=== PATIENT | female | born 1940 | race Caucasian/White ===

== ENCOUNTER 2023-03-31 09:46 | Outpatient (CLI) | payer MEDICARE, BC, SELFPAY ==
--- OUTSIDE RECORDS SUMMARY | 2023-03-31 09:49 | XMS_ITS | Continuity of Care Document ---
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 Role Phone Harley Jordan MD Unavailable Unavailable Allergies, Adverse Reactions, Alerts Substance Reaction Status Criticality No Known Allergies Active No Inform ation Medications Medication Instructions Dosage Effective Dates (start - stop) Status Comments AMLODIPINE BESYLATE (unknown strength) Not Available - Active ANASTROZOLE (unknown strength) Not Available - Active COSOPT (unknown strength) Not Available - Active DURLAZA (unknown strength) Not Available - Active LATANOPROST (unknown strength) Not Available - Active OYSTER SHELL-D (unknown strength) Not Available - Active PRAVASTATIN SODIUM (unknown strength) Not Available - Active ROGAINE (unknown strength) Not Available - Active VITAMIN D3 (unknown strength) Not Available - Active ZETIA (unknown strength) Not Available - Active Procedures Procedure Date Office/Outpatient Visit,[facility] [place] Advance Directives Directive Yes / No Effective Date File Name No Information Encounters Encounter Description Practice Location Reason(s) For Visit Diagnoses Date Provider Providers Copied on Encounter [facility], [address], [place], [id number], [place] tel:[phone] [facility] [place] No Information Nikki Souza. [facility], [address], [facility] [address], [facility] [place], [id number] , [place]. tel:[phone] Office/Outpat ient Visit,[facility], [address], [place], [id number], [place] tel:[phone] [facility], lumbar regionPain in lower leg Nikki Souza. [facility], [address], [address], [place], [place], [id number] , [place]. tel:[phone] Referring Provider: Abhi Weldon, [facility] [address] [place], [address]. tel:[phone] Family History Family Member Type Diagnosis Age At Onset Problem (finding) Payers Payer name Insurance type Covered green party ID Authoriza tion(s) Medicare MB [id number] [facility] [id number] [facility] [id number] Social History Type Description Quantity Date Captured Comments Alcohol Use Details Unknown Caffeine Use Details Unknown Tobacco Use Status No Information Smoking Status No Information Sex Female Chief Complaint And Reason For Visit No Information Reason For Referral Reason For Referral No Information History Of Present Illness Encounter Date Complaint History Of Prese nt Illness No Information Functional Status Date Functional Assessmen t No Information Instructions Date Instruction Additional Infor mation Weight Management Education Rela santiago to Overweight Weight management: I nstructed to return to General Practitioner timeframe: 1 Month. Related to Overweight Assessments Type Assessment Date No Information Patient Care Teams Name Effective Dates (start - stop) Status Members No Information
== END 2023-03-31 09:47 | disposition home or self-care (01) ==
LOC: NFLDREF 09:47
PROVIDERS: PCP Internal Medicine; Visit Provider Internal Medicine
DX: R53.83 Other fatigue (principal)
CPT/HCPCS: 80053; 87086

== ENCOUNTER 2023-04-02 13:39 | Emergency (ER) | payer MEDICARE, BC, SELFPAY ==
[2023-04-02] VITALS (18 sets, daily range): BP systolic 115–146; BP diastolic 47–73; PULSE 67–95; RESP 18; TEMP 36.3; O2SAT 95–98; BMI 27.5
--- NOTE | 2023-04-02 14:24 | ED.GENADULT ---
HPI - General Adult General Chief complaint: Weakness Stated complaint: Shaking, fatigue Time Seen by Provider: 04/02/23 14:23 History of Present Illness HPI narrative: pt started on uti medication, not feeling well since last wednesday. 03/[address] henley nurse and asked if she should be feeling better, pt feeling worse and does not feel like she has uti. told to go to ED. 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 pt more tired. 83-year-old woman presenting to the emergency department with primary complaint of fatigue. 4 COVID tests home were negative. It has been about a week where Kuhshbu has just not been feeling well and is fatigued. Initiated on Bactrim with 2-5 white cells 1+ leukocyte esterase noted in urine. She did not have any symptoms of dysuria but always struggles with urinary frequency. Contemplating treatment specifically for nocturia this time. No fever but the onset of these symptoms seem to come with a chill. No measured fever. No vomiting or diarrhea. No pain. Described vibration through her body when standing on triage. No melena. Blood pressures near goal. Is typically very active. Related Data Home Medications Medication Instructions Recorded Confirmed aspirin 81 mg tablet,delayed 81 mg PO QDAY 06/24/22 03/31/23 release dorzolamide 2 %-timolol 0.5 % (PF) 1 drp ophthalmic (eye) BID 06/24/22 03/31/23 eye drops ezetimibe 10 mg tablet 10 mg PO DAILY 06/24/22 03/31/23 latanoprost 0.005 % eye drops 1 drp ophthalmic (eye) QDAY 06/24/22 03/31/23 oxybutynin chloride 5 mg 5 mg PO DAILY 06/24/22 03/31/23 tablet,extended release 24 hr rosuvastatin 40 mg tablet 40 mg PO DAILY 06/24/22 03/31/23 Previous Rx's Medication Instructions Recorded amlodipine 5 mg tablet 5 mg PO QDAY Hypertension #90 tabs 06/24/22 sulfamethoxazole 800 1 tab PO BID UTI #10 tabs 03/31/23 mg-trimethoprim 160 mg tablet (Bactrim DS) Allergies Allergy/AdvReac Type Severity Reaction Status Date / Time No Known Allergies Allergy Unknown Unverified 03/31/23 09:30 Review of Systems Status of ROS: Reports: 6 or more systems reviewed and unremarkable except as noted in History and below PFSH PFSH Medical History UTI (urinary tract infection) ?N39.0 - Urinary tract infection, site not specified (ICD-10) Fatigue ?R53.83 - Other fatigue (ICD-10) Synovial cyst ?M71.30 - Other bursal cyst, unspecified site (ICD-10) History of malignant neoplasm of breast (2011) ?Z85.3 - Personal history of malignant neoplasm of breast (ICD-10) History of colonic polyps (06/02/18) ?Z86.010 - Personal history of colonic polyps (ICD-10) 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) ?Z95.0 - Presence of cardiac pacemaker (ICD-10) Surgical History History of lymph node dissection of axilla (05/28/12) ?Z98.890 - Other specified postprocedural states (ICD-10) History of lumpectomy of right breast (05/28/12) ?Z98.890 - Other specified postprocedural states (ICD-10) History of left inguinal hernia repair (07/11/18) ?Z98.890 - Other specified postprocedural states (ICD-10) ?Z87.19 - Personal history of other diseases of the digestive system (ICD-10) History of cholecystectomy (01/2012) ?Z90.49 - Acquired absence of other specified parts of digestive tract (ICD-10) History of appendectomy (1979) ?Z90.49 - Acquired absence of other specified parts of digestive tract (ICD-10) History of angioplasty of peripheral vessel (2015) ?Z98.62 - Peripheral vascular angioplasty status (ICD-10) History of abdominal hysterectomy (1979) ?Z90.710 - Acquired absence of both cervix and uterus (ICD-10) Family History Other Breast cancer Diabetes Heart disease Social History Smoking Status: Never smoker Do you use any of these nicotine containing products: None How often do you have a drink containing alcohol: 4 or more times a week How many standard drinks containing alcohol do you have on a typical day: 1 or 2 How often do you have six or more drinks on one occasion: Never AUDIT-C Alcohol total score: 4 Non-prescribed substance use: denies use Little interest or pleasure in doing things: not at all Feeling down, depressed, or hopeless: not at all service: No Exam Narrative: Exam Narrative: Very pleasant. Very conversant. Breathing easily. Cranial nerves 2-12 intact. Moving all extremities fluidly and with good strength. Well-perfused. No edema. Lungs are clear. Heart in a regular rate and rhythm. Abdomen is soft and nontender. Skin warm and dry without evident rash. Const: Vital Signs, click to edit/add: Vital Signs - 24 hr 04/02/23 13:45 04/02/23 14:20 04/02/23 14:21 Temperature 97.4 F L Pulse Rate 95 89 Pulse Rate [Pulse Oximeter] 83 Respiratory Rate 18 Blood Pressure 138/49 L 134/49 L Blood Pressure [Ri ght Upper Arm] 133/73 Pulse Oximetry 96 95 95 Oxygen Delivery [facility] Room Air 04/02/23 14:22 04/02/23 14:30 04/02/23 14:31 Temperature Pulse Rate 84 71 73 Pulse Rate [Pulse Oximeter] Respiratory Rate Blood Pressure 115/47 L Blood Pressure [Ri ght Upper Arm] Pulse Oximetry 96 96 96 Oxygen Delivery [facility] 04/02/23 14:45 04/02/23 15:00 04/02/23 15:02 Temperature Pulse Rate 67 70 71 Pulse Rate [Pulse Oximeter] Respiratory Rate Blood Pressure 124/52 L Blood Pressure [Ri ght Upper Arm] Pulse Oximetry 96 98 96 Oxygen Delivery [facility] 04/02/23 15:15 04/02/23 15:30 04/02/23 15:31 Temperature Pulse Rate 73 70 74 Pulse Rate [Pulse Oximeter] Respiratory Rate Blood Pressure 125/54 L Blood Pressure [Ri ght Upper Arm] Pulse Oximetry 97 97 95 Oxygen Delivery Nc thod 04/02/23 15:45 04/02/23 16:00 04/02/23 16:04 Temperature Pulse Rate 85 87 94 Pulse Rate [Pulse Oximeter] Respiratory Rate Blood Pressure 131/61 Blood Pressure [Ri ght Upper Arm] Pulse Oximetry 98 98 98 Oxygen Delivery Me thod 04/02/23 16:15 04/02/23 16:30 04/02/23 16:32 Temperature Pulse Rate 77 86 75 Pulse Rate [Pulse Oximeter] Respiratory Rate Blood Pressure 146/60 H Blood Pressure [Ri ght Upper Arm] Pulse Oximetry 98 97 97 Oxygen Delivery Me thod Documenting provider has reviewed patient's vital signs: yes Course Vital Signs Vital signs: Initial Vital Signs Temperature 97.4 F L 04/02/23 13:45 Temperature Source Temporal Artery Scan 04/02/23 13:45 Pulse Rate 83 04/02/23 13:45 Respiratory Rate 18 04/02/23 13:45 Blood Pressure 133/73 04/02/23 13:45 Blood Pressure Mean 93 04/02/23 13:45 Blood Pressure Position Supine 04/02/23 13:45 Pulse Oximetry 96 04/02/23 13:45 Oxygen Delivery Method Room Air 04/02/23 13:45 Vital Signs Temperature 97.4 F L 04/02/23 13:45 Pulse Rate 83 04/02/23 13:45 Respiratory Rate 18 04/02/23 13:45 Blood Pressure 133/73 04/02/23 13:45 Pulse Oximetry 96 04/02/23 13:45 Oxygen Delivery Method Room Air 04/02/23 13:45 Temperature 97.4 F L 04/02/23 13:45 Pulse Rate 75 04/02/23 16:32 Respiratory Rate 18 04/02/23 13:45 Blood Pressure 146/60 H 04/02/23 16:32 Pulse Oximetry 97 04/02/23 16:32 Oxygen Delivery Method Room Air 04/02/23 13:45 Medical Decision Making [facility] Narrative Medical decision making narrative: I think we can recheck labs including urinalysis. Do laboratory testing here for COVID. Differential does include indolent infection, viral process NOS, depression, poor sleep/insomnia, altered vitamin levels, endocrine anomaly. Could be reaction to medication; does take a statin. Monitor on cardiac nurse for any arrhythmia. No events during time in the emergency department. Offered reassurance at this point. See patient discharge plan. Medical Records Medical records reviewed: Yes I reviewed the patient's medical records Lab Data Lab results reviewed: Yes I reviewed the patient's lab results Labs: Lab Results 04/02/23 04/02/23 04/02/23 Range/Units 14:54 15:35 15:50 WBC 6.32 (4.50-11.00) K/uL RBC 3.95 L (4.00-5.20) m/uL Hgb 13.2 (12.0-16.0) gm/dL Hct 39.8 (33.0-51.0) % MCV 101 H (80-100) fL MCH 33 (26-34) pg MCHC 33 (32-36) gm/dL RDW Coeff of Augusto 12.1 (11.5-15.5) % Plt Count 204 (140-440) K/uL Neut % (Auto) 67.4 (42.0-72.0) % Lymph % (Auto) 19.9 L (20-44) % [place] % (Auto) 11.4 H (0.0-11.0) % Eos % (Auto) 0.2 (0.0-7.0) % Baso % (Auto) 0.3 (0.0-3.0) % Neut # (Auto) 4.26 (1.7-7.0) K/uL Lymph # (Auto) 1.30 (0.90-2.90) K/uL [place] # (Auto) 0.70 (0.00-0.90) K/UL Eos # (Auto) 0.01 (0.00-0.50) K/uL Baso # (Auto) 0.02 (0.00-0.30) K/uL Abs Immat Gran (auto) 0.05 (0.00-0.30) K/uL Imm/Tot Granulo (auto) 0.8 % Sodium 139 (135-149) mmol/L Potassium 4.0 (3.6-5.1) mmol/L Chloride 108 (96-114) mmol/L Carbon Dioxide 21 (20-32) mmol/L Anion Gap 10 (7-15) mEq/L BUN 12 (7-30) mg/dL Creatinine 0.9 (0.5-1.5) mg/dL Estimated Creat Clear 37.68 Estimated GFR 63 ml/min Glucose 107 (60-115) mg/dL Calcium 9.6 (8.4-10.6) mg/dL AST 67 H (12-35) U/L ALT 81 H (4-35) U/L Troponin I < 0.01 L (0.01-0.04) ng/mL C-Reactive Protein 0.7 (0.5-1.0) mg/dL Urine Color Yellow (Yellow) Urine Appearance Clear (Clear) Urine pH 6.0 (5.0-8.5) Ur Specific [place] 1.010 (1.000-1.030) Urine Protein Negative (Negative) Urine Glucose (UA) Negative (Negative) Urine Ketones Negative (Negative) Urine Blood Trace-intact A (Negative) Urine Nitrite Negative (Negative) Urine Bilirubin Negative (Negative) Urine Urobilinogen 0.2 (0.2-1.0) Ur Leukocyte Esterase Negative (Negative) Urine RBC 0-2 (0-2) Urine WBC 0-2 (0-5) Ur Squamous Epith Cells None (None-Few) Urine Bacteria None (None) SARS-CoV-2 (PCR) Negative SARS-CoV-2 (Negative) Influenza Type A (PCR) Negative PCR FLU A (Negative) Influenza Type B (PCR) Negative PCR FLU B (Negative) Lab Acknowledgement POC Troponin I 0.00 L (0.01-0.04) ng/ml 04/02/23 Range/Units 16:54 WBC (4.50-11.00) K/uL RBC (4.00-5.20) m/uL Hgb (12.0-16.0) gm/dL Hct (33.0-51.0) % MCV (80-100) fL MCH (26-34) pg MCHC (32-36) gm/dL RDW Coeff of Augusto (11.5-15.5) % Plt Count (140-440) K/uL Neut % (Auto) (42.0-72.0) % Lymph % (Auto) (20-44) % [place] % (Auto) (0.0-11.0) % Eos % (Auto) (0.0-7.0) % Baso % (Auto) (0.0-3.0) % Neut # (Auto) (1.7-7.0) K/uL Lymph # (Auto) (0.90-2.90) K/uL [place] # (Auto) (0.00-0.90) K/UL Eos # (Auto) (0.00-0.50) K/uL Baso # (Auto) (0.00-0.30) K/uL Abs Immat Gran (auto) (0.00-0.30) K/uL Imm/Tot Granulo (auto) % Sodium (135-149) mmol/L Potassium (3.6-5.1) mmol/L Chloride (96-114) mmol/L Carbon Dioxide (20-32) mmol/L Anion Gap (7-15) mEq/L BUN (7-30) mg/dL Creatinine (0.5-1.5) mg/dL Estimated Creat Clear Estimated GFR ml/min Glucose (60-115) mg/dL Calcium (8.4-10.6) mg/dL AST (12-35) U/L ALT (4-35) U/L Troponin I (0.01-0.04) ng/mL C-Reactive Protein (0.5-1.0) mg/dL Urine Color (Yellow) Urine Appearance (Clear) Urine pH (5.0-8.5) Ur Specific [place] (1.000-1.030) Urine Protein (Negative) Urine Glucose (UA) (Negative) Urine Ketones (Negative) Urine Blood (Negative) Urine Nitrite (Negative) Urine Bilirubin (Negative) Urine Urobilinogen (0.2-1.0) Ur Leukocyte Esterase (Negative) Urine RBC (0-2) Urine WBC (0-5) Ur Squamous Epith Cells (None-Few) Urine Bacteria (None) SARS-CoV-2 (PCR) (Negative) Influenza Type A (PCR) (Negative) Influenza Type B (PCR) (Negative) Lab Acknowledgement Test Added POC Troponin I (0.01-0.04) ng/ml ECG Data Attestation: I personally reviewed and interpreted this ECG as follows: (Sinus rhythm rate of 71 no acute ischemic changes. Looks like a bit of a sinus arrhythmia.) Discharge Plan Discharge Clinical Impression: Fatigue Patient Disposition: Home, Self-Care Condition: Stable Additional Instructions: Stay well-hydrated. I can appreciate that your transaminases are little elevated. I will do an add on repeat of these and call you if they are what I would consider actionable. (I suppose I should mention that a glass of wine would bump your transaminases potentially to this degree even the next day :) Otherwise if fatigue continues for another week, follow up to be seen in repeat lab testing. Consider other testing in the differential of fatigue. It may simply be that you have a viral process that has occurred here and left with with some lower energy. I do not see reason now to be taking Bactrim; can discontinue. Prescriptions: No Action rosuvastatin 40 mg tablet 40 mg PO DAILY oxybutynin chloride 5 mg tablet extended release 24hr 5 mg PO DAILY latanoprost 0.005 % drops 1 drp ophthalmic (eye) QDAY dorzolamide-timolol (PF) 2-0.5 % drops 1 drp ophthalmic (eye) BID aspirin 81 mg tablet,delayed release (DR/EC) 81 mg PO QDAY ezetimibe 10 mg tablet 10 mg PO DAILY amlodipine 5 mg tablet 5 mg PO QDAY Qty: 90 3RF sulfamethoxazole-trimethoprim [Bactrim DS] 800-160 mg tablet 1 tab PO BID Qty: 10 0RF Follow Up/Referrals: Abhi Weldon MD [Primary Care Provider] - Stand Alone Forms: [employer] Info Instructions
--- OUTSIDE RECORDS SUMMARY | 2023-04-02 15:08 | XMS_ITS | Continuity of Care Document ---
Author Name Unknown Organization [facility] Address [address] [place] [address] Phone Care Team Providers Care Log Manager Name Role Phone Harley Jordan MD Unavailable Unavailable Allergies, Adverse Reactions, Alerts Substance Reaction Status Criticality No Known Allergies Active No Inform ation Medications Medication Instructions Dosage Effective Dates (start - stop) Status Comments ZETIA (unknown strength) Not Available - Active VITAMIN D3 (unknown strength) Not Available - Active ROGAINE (unknown strength) Not Available - Active PRAVASTATIN SODIUM (unknown strength) Not Available - Active OYSTER SHELL-D (unknown strength) Not Available - Active LATANOPROST (unknown strength) Not Available - Active DURLAZA (unknown strength) Not Available - Active COSOPT (unknown strength) Not Available - Active ANASTROZOLE (unknown strength) Not Available - Active AMLODIPINE BESYLATE (unknown strength) Not Available - Active Procedures Procedure Date Office/Outpatient Visit,[facility] 2015 Advance Directives Directive Yes / No Effective Date File Name No Information Encounters Encounter Description Practice Location Reason(s) For Visit Diagnoses Date Provider Providers Copied on Encounter [facility], [address], [place], [id number], [place] tel:[phone] [facility] - [place] No Information Nikki Souza. [facility], [address], [facility] [address], [facility] [place], [id number] , [place]. tel:[phone] Office/Outpat ient Visit,[facility], [address], [place], [id number], [place] tel:[phone] [facility], lumbar regionPain in lower leg Nikki Souza. [facility], [address], [address], [place], [place], [id number] , [place]. tel:[phone] Referring Provider: Abhi Weldon, [facility] [address] [place], [address]. tel:[phone] Family History Family Member Type Diagnosis Age At Onset Problem (finding) Payers Payer name Insurance type Covered constitution party ID Authoriza tion(s) Medicare MB [id number] [facility] [id number] [facility] [id number] Social History Type Description Quantity Date Captured [...]
[2023-04-02 15:40] LABS: Basophils Absolute Auto 0.02 K/uL (0.00-0.30); Basophils Percent Auto 0.3 % (0.0-3.0); Eosinophils Absolute Auto 0.01 K/uL (0.00-0.50); Eosinophils Percent Auto 0.2 % (0.0-7.0); Hematocrit 39.8 % (33.0-51.0); Hemoglobin* 13.2 gm/dL (12.0-16.0); Immature Granulocytes Abs Auto 0.05 K/uL (0.00-0.30); Immature Granulocytes Pct Auto 0.8 %; Lymphocytes Percent Auto 19.9 % (20-44); Mean Corpuscular HGB Conc 33 gm/dL (32-36); Mean Corpuscular Hemoglobin 33 pg (26-34); Mean Corpuscular Volume 101 fL (80-100); Monocytes Percent Auto 11.4 % (0.0-11.0); Neutrophils Absolute Auto 4.26 K/uL (1.7-7.0); Neutrophils Percent Auto 67.4 % (42.0-72.0); Platelet Count* 204 K/uL (140-440); RDW Coefficient of Variation % 12.1 % (11.5-15.5); Red Blood Count 3.95 m/uL (4.00-5.20); White Blood Count* 6.32 K/uL (4.50-11.00)
[2023-04-02 15:49] LABS: Slide Review Reflex No
[2023-04-02 15:56] LABS: Chloride* 108 mmol/L (96-114); Sodium* 139 mmol/L (135-149)
[2023-04-02 15:59] LABS: Creatinine* 0.9 mg/dL (0.5-1.5); Est. Creatinine Clearance* 37.68; Estimated Glomerular Filt Rate 63 ml/min
[2023-04-02 16:00] LABS: Anion Gap 10 mEq/L (7-15); Blood Urea Nitrogen* 12 mg/dL (7-30); Calcium* 9.6 mg/dL (8.4-10.6); Carbon Dioxide* 21 mmol/L (20-32); Glucose* 107 mg/dL (60-115)
[2023-04-02 16:02] LABS: C Reactive Protein* 0.7 mg/dL (0.5-1.0)
[2023-04-02 16:11] LABS: Appearance Urine Clear (Clear); Bilirubin Urine Negative (Negative); Blood Urine Trace-intact (Negative); Color Urine Yellow (Yellow); Glucose Urine Negative (Negative); Ketones Urine Negative (Negative); Leukocyte Esterase Urine Negative (Negative); Nitrite Urine Negative (Negative); Protein Urine Negative (Negative); Urobilinogen Urine 0.2 (0.2-1.0)
[2023-04-02 16:18] LABS: Troponin I* < 0.01 ng/mL (0.01-0.04)
[2023-04-02 16:19] LABS: PCR FLU A Negative PCR FLU A (Negative); PCR FLU B Negative PCR FLU B (Negative); SARS PCR* Negative SARS-CoV-2 (Negative)
[2023-04-02 16:26] LABS: RBC Urine 0-2 (0-2); WBC Urine 0-2 (0-5)
[2023-04-02 17:07] LABS: Alanine Aminotransferase* 81 U/L (4-35); Aspartate Amino Transferase* 67 U/L (12-35)
== END 2023-04-02 16:50 | disposition home or self-care (01) ==
PROVIDERS: Emergency Provider Family Medicine; PCP Internal Medicine
DX: R53.83 Other fatigue (principal)
CPT/HCPCS: 36415; 80048; 81001; 84450; 84460; 84484; 85025; 86140; 87631; 93005; 99284

== ENCOUNTER 2023-06-30 08:47 | Outpatient (CLI) | payer MEDICARE, BC, SELFPAY ==
--- OUTSIDE RECORDS SUMMARY | 2023-06-30 08:56 | XMS_ITS | Continuity of Care Document ---
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 Name Role Phone Harley Jordan MD Unavailable Unavailable Allergies, Adverse Reactions, Alerts Substance Reaction Status Criticality No Known Allergies Active No Inform ation Medications Medication Instructions Dosage Effective Dates (start - stop) Status Comments ANASTROZOLE (unknown strength) Not Available - Active [...] ZETIA (unknown strength) Not Available - Active AMLODIPINE BESYLATE (unknown strength) Not Available - Active Procedures Procedure Date Office/Outpatient Visit,[facility] 2015 Advance Directives Directive Yes / No Effective Date File Name No Information Encounters Encounter Description Practice Location Reason(s) For Visit Diagnoses Date Provider Providers Copied on Encounter [facility], [address], [place], [id number], [place] tel:[phone] [facility] - [place] No Information Nikki Souza. [facility], [address], [facility] [address], [facility] [place], [id number] , [place]. tel:[phone] Office/Outpat ient Visit,[facility], [address], [place], [id number], [place] tel:[phone] [facility]isth [facility]is, lumbar regionPain in lower leg Nikki Souza. [facility], [address], [address], [place], [place], [id number] , [place]. tel:[phone] Referring Provider: Abhi Weldon, [facility] [address] [place], [address]. tel:[phone] Family History Family Member Type Diagnosis Age At Onset Problem (finding) Payers Payer name Insurance type Covered constitution party ID Authoriza tion(s) [place] [id number] [facility] [id number] [facility] [id number] Social History Type Description Quantity Date Captured [...]
--- NOTE | 2023-06-30 09:15 | CRLHL7_ITS ---
For Patients: As a result of the Century Cures Act, medical imaging exams and procedure reports are released immediately into your electronic medical record. You may view this report before your referring provider. If you have questions, please contact your health care provider. BILATERAL SCREENING MAMMOGRAM WITH COMPUTER-AIDED DETECTION TECHNIQUE: CC and MLO views were obtained. These mammographic images have been obtained using full-field digital technique. These mammographic images were interpreted with the benefit of computer-aided detection. COMPARISON FILM: 12/01/21, 10/26/18, 06/16/17. FINDINGS: The breasts are almost entirely fatty IMPRESSION: There is no radiographic evidence for malignancy. ASSESSMENT: BI-RADS Category 2: Benign RECOMMENDATION: Routine screening mammogram in 1 year. A lay language report of this examination will be provided to the patient. Po Mark M.D. Diagnostic/Nuclear Medicine Radiologist [email or web address] TAZ/Dictated by: Po Mark MD @ 06/30/2023 9:35:00 AM (Electronically Signed)
== END 2023-06-30 08:48 | disposition home or self-care (01) ==
LOC: MAMMO 08:49
PROVIDERS: PCP Internal Medicine; Visit Provider Internal Medicine
DX: Z12.31 Encounter for screening mammogram for malignant neoplasm of breast (principal)
CPT/HCPCS: 77067

== ENCOUNTER 2023-10-04 12:48 | Emergency (ER) | payer MEDICARE, BC, SELFPAY ==
[2023-10-04 13:17] VITALS: BP 153/80; PULSE 93; RESP 16; TEMP 36.4; O2SAT 97; BMI 27.0
--- NOTE | 2023-10-04 14:09 | CT_ITS ---
Final Report Patient: HONORIO HOSKINS Facility:?[facility] Patient ID:?[id number] Site Patient ID:?[id number]. Site :?[id number] Study:?CT Chest WITHOUT-10/04/2023 2:38:40 PM Ordering Physician:?DR. ROWAN Final Report: INDICATION: Right lower rib pain, history of breast cancer TECHNIQUE: CT of the chest was performed without intravenous contrast. Please note that all CT scans at this facility use dose modulation, iterative reconstruction, and/or weight-based dosing when appropriate to reduce radiation dose to as low as reasonably achievable. COMPARISON: None. FINDINGS: Medical devices: Left chest pacemaker with 2 associated leads. Thyroid: 0.5 centimeter hypoattenuating left thyroid nodule (2/10). Lymph nodes: Limited evaluation without IV contrast. No supraclavicular, axillary, mediastinal, or hilar lymphadenopathy. Status post right axillary lymph node dissection. Vasculature: Limited evaluation without IV contrast. Aorta and main pulmonary artery diameters are within normal range. Mild aortic calcification. Heart: Moderate coronary artery calcification. No pericardial effusion. Other mediastinal structures: No significant abnormality. Lung parenchyma: No significant abnormality. Airways: No significant abnormality. Pleura: No significant abnormality. Chest wall: Postsurgical changes are seen in the right breast. Upper abdomen: Status post cholecystectomy. Musculoskeletal: Osteopenia. Moderate multilevel degenerative changes of the visualized spine. IMPRESSION: 1. No suspicious bony lesions. 2. No visualized lymphadenopathy. 3. Postsurgical changes in the right breast and right axilla. Please note that all CT scans at this facility use dose modulation, iterative reconstruction, and/or weight-based dosing when appropriate to reduce radiation dose to as low as reasonably achievable. Dictated by Shoaib Trinh MD @ 10/04/2023 3:01:40 PM (Electronic Signature)
--- NOTE | 2023-10-04 16:05 | ED_ITS ---
HPI - General Adult General Date Seen: 10/04/23 Chief complaint: Abdominal Pain Stated complaint: Abdominal pain Time Seen by Provider: 10/04/23 14:01 Source: patient, RN notes reviewed and old records reviewed Mode of arrival: ambulatory Limitations: no limitations History of Present Illness HPI narrative: Patient is an 83-year-old woman who presents with focal pain in her right lower ribcage of 3 weeks duration. She says that it has been the same since it started, she does not remember any specific injury. She has no pleuritic pain and no shortness of breath, no fever cough. She describes it as abdominal pain but it is really a very localized area on the rib cage which is painful and tender to push on. She has not had any overlying redness or rash. She has a history of breast cancer on that side, she says she has had some problems with chest wall pain which she has been told her probably nerve pains, but this is in a different location. She says that there is nothing that makes the pain better or worse, she is sleeping without difficulty however, pain is mild. She is primarily concerned that it might be related to her previous breast cancer for which she had surgery in she thinks 2011 or . Related Data Home Medications Medication Instructions Recorded Confirmed dorzolamide 2 %-timolol 0.5 % (PF) 1 drp ophthalmic (eye) BID 06/24/22 10/04/23 eye drops ezetimibe 10 mg tablet 10 mg PO DAILY 06/24/22 10/04/23 latanoprost 0.005 % eye drops 1 drp ophthalmic (eye) QDAY 06/24/22 10/04/23 rosuvastatin 40 mg tablet 40 mg PO DAILY 06/24/22 10/04/23 Previous Rx's Medication Instructions Recorded amlodipine 5 mg tablet 5 mg PO QDAY Hypertension #90 tabs 07/23/23 Allergies Allergy/AdvReac Type Severity Reaction Status Date / Time No Known Allergies Allergy Unknown Verified 10/04/23 13:22 Review of Systems Status of ROS: Reports: 10 or more systems reviewed and unremarkable except as noted in History and below [facility] Medical History Nocturia ?R35.1 - Nocturia (ICD-10) IBS (irritable bowel syndrome) ?K58.9 - Irritable bowel syndrome without diarrhea (ICD-10) UTI (urinary tract infection) ?N39.0 - Urinary tract infection, site not specified (ICD-10) Fatigue ?R53.83 - Other fatigue (ICD-10) Synovial cyst ?M71.30 - Other bursal cyst, unspecified site (ICD-10) History of malignant neoplasm of breast (2011) ?Z85.3 - Personal history of malignant neoplasm of breast (ICD-10) History of colonic polyps (06/02/18) ?Z86.010 - Personal history of colonic polyps (ICD-10) 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) ?Z95.0 - Presence of cardiac pacemaker (ICD-10) Surgical History History of lymph node dissection of axilla (05/28/12) ?Z98.890 - Other specified postprocedural states (ICD-10) History of lumpectomy of right breast (05/28/12) ?Z98.890 - Other specified postprocedural states (ICD-10) History of left inguinal hernia repair (07/11/18) ?Z98.890 - Other specified postprocedural states (ICD-10) ?Z87.19 - Personal history of other diseases of the digestive system (ICD-10) History of cholecystectomy (01/2012) ?Z90.49 - Acquired absence of other specified parts of digestive tract (ICD- 10) History of appendectomy (1979) ?Z90.49 - Acquired absence of other specified parts of digestive tract (ICD- 10) History of angioplasty of peripheral vessel (2015) ?Z98.62 - Peripheral vascular angioplasty status (ICD-10) History of abdominal hysterectomy (1979) ?Z90.710 - Acquired absence of both cervix and uterus (ICD-10) Family History Other Breast cancer Diabetes Heart disease Social History What is your current living situation?: I presently have a place to live Problems where you live: no known problems In the past 12 months, utilities in danger of being shut off: no In past 12 months, lack of transportation kept you from medical appts, meetings, work, or getting things needed for daily living: no In the past 12 mos, have been you worried that your food would run out before you had money to buy more?: never true In the past 12 mos, the food you bought just didn't last and you didn't have money to buy more?: never true Smoking Status: Never smoker Do you use any of these nicotine containing products: None How often do you have a drink containing alcohol: 4 or more times a week How many standard drinks containing alcohol do you have on a typical day: 1 or 2 How often do you have six or more drinks on one occasion: Never AUDIT-C Alcohol total score: 4 Non-prescribed substance use: denies use How often does anyone, including family, friends and others, physically hurt you : never How often does anyone, including family, friends and others, insult or talk down to you: never How often does anyone, including family, friends and others, threaten you with harm: never How often does anyone, including family, friends and others, scream or curse at you: never Little interest or pleasure in doing things: not at all Feeling down, depressed, or hopeless: not at all service: No Exam 2 Narrative: Exam Narrative: Vital signs as noted above. In general, an alert, well-appearing patient. Breathing easily. Head: Normocephalic, atraumatic. Eyes: Pupils are equal reactive. Extraocular movements are full. Conjunctivae are normal. ENT: Mucous membranes are moist. Delete Neck: Supple without lymphadenopathy. Heart: Regular rate and rhythm. No murmur or rub. Lungs: Clear bilaterally. No increased work of breathing, crackles or wheezes. Focal area of tenderness over the lower anterior right rib cage. No overlying erythema, crepitus, rash. Abdomen: Soft and nontender. Her abdomen is entirely nontender, negative Potter's. Extremities: Well perfused. No edema. No calf tenderness. Pulses intact. Neurologic: Patient is alert and oriented to person and place. Speech is fluent. Face is symmetric. Moves all extremities equally. Affect: Normal. Skin: Warm and dry. Well perfused. Const: Vital Signs, click to edit/add: Vital Signs - 24 hr 10/04/23 13:17 Temperature 97.5 F L Pulse Rate [Pulse Oximeter] 93 Respiratory Rate 16 Blood Pressure [Ri ght Upper Arm] 153/80 H Pulse Oximetry 97 Oxygen Delivery Me thod Room Air Documenting provider has reviewed patient's vital signs: yes Course Course ED Course: Patient and I discussed options, she would really feel better if we did some imaging to evaluate that area, so I did order a CT of the chest without contrast. This is read by Radiology as negative for any suspicious bony lesions or other abnormalities. At this time, would recommend conservative care, scheduled Tylenol for few days, ice. If not improving with these measures, recommend primary care follow-up in the next week or 2. If she worsens, has new symptoms such as fever, shortness of breath, etcetera return to the emergency department at any time. Vital Signs Vital signs: Initial Vital Signs Temperature 97.5 F L 10/04/23 13:17 Temperature Source Temporal Artery Scan 10/04/23 13:17 Pulse Rate 93 10/04/23 13:17 Pulse Rhythm Regular 10/04/23 13:17 Pulse Strength 3+ Normal 10/04/23 13:17 Respiratory Rate 16 10/04/23 13:17 Blood Pressure 153/80 H 10/04/23 13:17 Blood Pressure Mean 104 10/04/23 13:17 Blood Pressure Position Sitting 10/04/23 13:17 Pulse Oximetry 97 10/04/23 13:17 Oxygen Delivery Method Room Air 10/04/23 13:17 Vital Signs Temperature 97.5 F L 10/04/23 13:17 Pulse Rate 93 10/04/23 13:17 Respiratory Rate 16 10/04/23 13:17 Blood Pressure 153/80 H 10/04/23 13:17 Pulse Oximetry 97 10/04/23 13:17 Oxygen Delivery Method Room Air 10/04/23 13:17 Temperature 97.5 F L 10/04/23 13:17 Pulse Rate 93 10/04/23 13:17 Respiratory Rate 16 10/04/23 13:17 Blood Pressure 153/80 H 10/04/23 13:17 Pulse Oximetry 97 10/04/23 13:17 Oxygen Delivery Method Room Air 10/04/23 13:17 Discharge Plan Discharge Clinical Impression: Chest wall pain Patient Disposition: Home, Self-Care Condition: Stable Instructions: Chest Wall Pain (ED) Additional Instructions: Tylenol 1000 mg 3 times daily for a few days, ice may be helpful as well. Your CT scan does not show any suspicious bony lesions or other abnormalities. If pain does not improve with conservative measures, recommend primary care follow- up next week. Return at any time for acute worsening, severe pain, fevers, difficulty breathing etcetera. Prescriptions: No Action rosuvastatin 40 mg tablet 40 mg PO DAILY latanoprost 0.005 % drops 1 drp ophthalmic (eye) QDAY dorzolamide-timolol (PF) 2-0.5 % drops 1 drp ophthalmic (eye) BID ezetimibe 10 mg tablet 10 mg PO DAILY amlodipine 5 mg tablet 5 mg PO QDAY Qty: 90 3RF Follow Up/Referrals: Abhi Weldon MD [Primary Care Provider] - Stand Alone Forms: [employer] Info Instructions
== END 2023-10-04 15:27 | disposition home or self-care (01) ==
PROVIDERS: Emergency Provider Emergency Medicine; PCP Internal Medicine
DX: R07.89 Other chest pain (principal)
CPT/HCPCS: 71250; 99284

== ENCOUNTER 2023-11-02 08:01 | Outpatient (CLI) | payer MEDICARE, BC, SELFPAY ==
--- NOTE | 2023-11-02 08:15 | US_ITS ---
Patient: HONORIO HOSKINS Facility:?[facility] Patient ID:?[id number] Site Patient ID:?[id number]. Site :?[id number] Study:?US-Breast Right RT BREAST LMT / DR. ARNETT TO READ-11/02/2023 8:40:36 AM Ordering Physician:?AKIL MCWILLIAMS M.D. Final Report: RIGHT BREAST ULTRASOUND CLINICAL HISTORY: RIGHT breast pain. COMPARISON: 06/07/2014, 06/30/2023. TECHNIQUE: Real-time ultrasound imaging of RIGHT breast with imaging documentation. FINDINGS: Targeted sonogram RIGHT breast 3 o`clock 4 cm from the nipple performed. Normal breast tissue. No suspicious mass. No fluid collection or abscess. IMPRESSION: Negative targeted RIGHT breast ultrasound. RECOMMENDATIONS: Clinical follow-up. Routine screening mammography. BI-RADS Category 2: Benign A lay language report of this examination will be provided to the patient. Dictated by Rene Arnett MD @ 11/02/2023 10:27:59 AM jj/Dictated by: Rene Arnett MD @ 11/02/2023 10:28:00 AM Signed by:?Rene Arnett MD @11/02/2023 12:07:33 PM (Electronic Signature)
== END 2023-11-02 08:02 | disposition home or self-care (01) ==
LOC: US 08:01
PROVIDERS: PCP Internal Medicine; Visit Provider Internal Medicine
DX: N64.4 Mastodynia (principal)
CPT/HCPCS: 76642

== ENCOUNTER 2024-02-02 09:55 | Outpatient (CLI) | payer MEDICARE, BC, SELFPAY ==
--- OUTSIDE RECORDS SUMMARY | 2024-02-04 05:54 | XMS_ITS | Encounter Summary ---
Author Organization [facility] Address [address] [place] [address] Care Team Providers Care Reports Analyst Name Role Phone Elsewhere, Pcp Primary Care Provider Unavailabl e Encounter Details Date Type Department Care Team (Late st Contact Info) Description 12/23/2023 8:50 AM CDT Ancillary Procedure Department of Ophthalmology Social History Tobacco Use Types Packs/Day Years Used Date Smoking Tobacco: Never Smokeless Tobacco: Never Alcohol Use Standard Drinks/Week Comments Not Currently 0 (1 standard drink = 0.6 oz pur e alcohol) [facility] Utilities Answer Date Recorded In the past 12 months has e electric, gas, oil, or water company threatened to shut off services in your home? No 12/16/2023 Humiliation, Afraid, Rape, and Kick questionnair e Answer Date Recorded Within the last year, have y ou been afraid of your partner or ex-partner? No 07/21/2021 Within the last year, have y ou been humiliated or emotionally abused in other ways by your partner or ex-partner? No Within the last year, have y ou been kicked, hit, slapped, or otherwise physically hurt by your partner or ex-partner? No 07/21/2021 Within the last year, have y ou been raped or forced to have any kind of sexual activity by your partner or ex-partner? No 07/21/2021 Social Connection and Isolat ion Panel [NHANES] Answer Date Recorded In a typical week, how many times do you talk on the phone with family, friends, or neighbors? More than three times a week 07/21/2021 How often do you get togethe r with friends or relatives? More than three times a week 07/21/2021 How often do you attend chur ch or confucianism services? More than 4 times per year 07/21/2021 Do you belong to any clubs o r organizations such as jew groups, unions, fraternal or athletic groups, or school groups? Yes 07/21/2021 How often do you attend meet ings of the clubs or organizations you belong to? More than 4 times per year 07/21/2021 Are you , , di vorced, , never , or living with a partner? 07/21/2021 AUDIT-C Answer Date Recorded Q1: How often do you have a drink containing alcohol? 4 or more times a week 07/21/2021 Q2: How many drinks containi ng alcohol do you have on a typical day when you are drinking? 1 or 2 Q3: How often do you have si x or more drinks on one occasion? Never 07/21/2021 Overall Financial Resource Strain (CARDIA) Answe r Date Recorded How hard is it for you to pa y for the very basics like food, housing, medical care, and heating? Not very hard 07/21/2021 PHQ-2 Answer Date Recorded PHQ-2 Score 0 09/24/2020 [facility] - Occupational Stress Questionnaire Answer Date Recorded Do you feel stress - tense, restless, nervous, or anxious, or unable to sleep at night because your mind is troubled all the time - these days? Not at all 07/21/2021 Exercise Vital Sign Answer Date Recorde d On average, how many days pe r week do you engage in moderate to strenuous exercise (like a brisk walk)? 5 days 12/16/2023 On average, how many minutes do you engage in exercise at this level? 50 min 12/16/2023 Hunger Vital Sign Answer Date Recorded Within the past 12 months, y ou worried that your food would run out before you got the money to buy more. Never true 12/16/19 24 Within the past 12 months, t he food you bought just didn't last and you didn't have money to get more. Never true 12/16/2023 PRAPARE - Transportation Answer Date Re corded In the past 12 months, has l ack of transportation kept you from medical appointments or from getting medications? No 11/30 In the past 12 months, has l ack of transportation kept you from meetings, work, or from getting things needed for daily living? No 12/16/2023 Nutrition Answer Date Recorded On average, how many serving s of fruits and vegetables do you eat per day (serving size is equal to 1 cup or approximately the size of a tennis ball)? 3-5 12/16/2023 Dental Answer Date Recorded Dental: Regular Dentist Yes 08/01/20 Employment Answer Date Recorded Employment status Retired 12/16/2023 Housing Stability Answer Date Recorded What is your living situation today? I have a st le place to live 12/16/2023 Education Answer Date Recorded What is the highest level of school you have completed or the highest degree you have received? Bachelor's degree (e.g., BA, AB, BS) 09/12/2020 Sex and Gender Information Value Date Recorded Sex Assigned at Female 07/21/2021 3:59 PM INFANTRY UNIT LEADER Gender Identity Female 09/12/2020 7:45 PM INFANTRY UNIT LEADER Sexual Orientation Straight 09/14/2020 9: 40 AM INFANTRY UNIT LEADER documented as of this encounter Plan of Treatment Not on file documented as of this encounter Procedures Procedure Name Priority Date/Time Associated Diagnosis Comments OPHTHALMOLOGY IMAGE EXAM Routine 12/23/2023 8:50 AM CDT documented in this encounter Results * Optical Coherence Tomography (OCT)-Ophthalmology Image Exam (12/23/2023 8:50 AM CDT) 12/23/2023 8:47 AM CDT Narrative IIMS - 12/23/2023 8:57 AM CDT This order has been created and auto-finalized to support the import of images acquired without order. The clinical documentation to support these images can be found on the encounter that produced images. Provider Not In System IMG NON RAD IMAGI NG PROCEDURES IIMS NA documented in this encounter Visit Diagnoses Not on filedocumented in this encounter Additional Health Concerns Assessment Noted Time PHQ-9 Depression Total Score: 0 07/07/20 12 9:38 AM INFANTRY UNIT LEADER documented as of this encounter Care Teams Reports Analyst Relationship Specialty Start Date End Date Elsewhere, Pcp PCP - General Family Medicine 12/17/20 documented as of this encounter
--- OUTSIDE RECORDS SUMMARY | 2024-02-04 05:54 | XMS_ITS | Encounter Summary ---
Author Organization [facility] Address [address] [place] [address] Care Team Providers Care Willower Name Role Phone Elsewhere, Pcp Primary Care Provider Unavailabl e Encounter Details Date Type Department Care Team (Late st Contact Info) Description 02/08/2017 Historical Ophthalmology [facility] Garrett Maradiaga M.D. [address], [place] [address] Social History Tobacco Use Types Packs/Day Years Used Date Smoking Tobacco: Never Assessed Sex and Gender Information Value Date Recorded Sex Assigned at Female 07/21/2021 3:59 PM LICENSED FUNERAL DIRECTOR AND EMBALMER Gender Identity Female 09/12/2020 7:45 PM LICENSED FUNERAL DIRECTOR AND EMBALMER Sexual Orientation Straight 09/14/2020 9: 40 AM LICENSED FUNERAL DIRECTOR AND EMBALMER documented as of this encounter Progress Notes * Garrett Maradiaga M.D. - 02/08/2017 8:57 AM CDT Eye General CHIEF COMPLAINT decreased vision HISTORY OF PRESENT ILLNESS headaches and bright lights are bothering her since getting her new glasses- saw Dr. Hernandez who noted an abrasion- told to use artifical tears 4x day. Tears have cut the headaches in half, but stillhaving some centered by the left eye. Having difficutly seeing at dist and near- fuzzy worse at near. Never any double dist or near with our without glasses, however without glasses feels a pulling sensation. 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 #3 sp L ERM peel CDM Reports - EYEGEN Id: [id number] Status: Fnl documented in this encounter Plan of Treatment Not on file documented as of this encounter Visit Diagnoses Not on filedocumented in this encounter Additional Health Concerns Infection Onset Date Last Indicated Resolved Time COVID19 Pending 09/13/2020 09/13/2020 09/13/2020 1 0:20 PM LICENSED FUNERAL DIRECTOR AND EMBALMER COVID19 Pending 12/11/2020 12/11/2020 12/12/2020 1 :06 AM CDT Assessment Noted Time PHQ-9 Depression Total Score: 0 07/07/20 12 9:38 AM LICENSED FUNERAL DIRECTOR AND EMBALMER documented as of this encounter Care Teams Willower Relationship Specialty Start Date End Date Elsewhere, Pcp PCP - General Family Medicine 12/17/20 documented as of this encounter
--- OUTSIDE RECORDS SUMMARY | 2024-02-04 05:54 | XMS_ITS | Encounter Summary ---
Author Organization [facility] Address [address] [place] [address] Care Team Providers Care Manager Online Name Role Phone Elsewhere, Pcp Primary Care Provider Unavailabl e Encounter Details Date Type Department Care Team (Late st Contact Info) Description 02/14/2016 Historical Ophthalmology [facility] Susan Hernandez M.D. [address] [place] [id number] Social History Tobacco Use Types Packs/Day Years Used Date Smoking Tobacco: Never Assessed Sex and Gender Information Value Date Recorded Sex Assigned at Female 07/21/2021 3:59 PM ELECTRON BEAM WELDING MACHINE OPERATOR Gender Identity Female 09/12/2020 7:45 PM ELECTRON BEAM WELDING MACHINE OPERATOR Sexual Orientation Straight 09/14/2020 9: 40 AM ELECTRON BEAM WELDING MACHINE OPERATOR documented as of this encounter Progress Notes * Susan Hernandez M.D. - 02/14/2016 3:11 PM CDT Eye General CHIEF COMPLAINT recheck after stopping timolol HISTORY OF PRESENT ILLNESS 76 year old female here for follow up of glaucoma suspect left eye. Patient reports no change in vision since last visit. Denies ocular pain. 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 / resolved w additional 6 BI left - therefore offer ground in - but did wellin [place] - amps as so good worth trying without #3 sp L ERM peel sb RI - nothing futher for ret - OCT shows thickened macular #4 Left eye pain resolved DIAGNOSIS #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 #3 sp L ERM peel #4 Left eye pain CDM Reports - EYEGEN Id: [id number] Status: Fnl documented in this encounter Plan of Treatment Not on file documented as of this encounter Visit Diagnoses Not on filedocumented in this encounter Additional Health Concerns Infection Onset Date Last Indicated Resolved Time COVID19 Pending 09/13/2020 09/13/2020 09/13/2020 1 0:20 PM ELECTRON BEAM WELDING MACHINE OPERATOR COVID19 Pending 12/11/2020 12/11/2020 12/12/2020 1 :06 AM CDT Assessment Noted Time PHQ-9 Depression Total Score: 0 07/07/20 12 9:38 AM ELECTRON BEAM WELDING MACHINE OPERATOR documented as of this encounter Care Teams Manager Online Relationship Specialty Start Date End Date Elsewhere, Pcp PCP - General Family Medicine 12/17/20 documented as of this encounter
--- OUTSIDE RECORDS SUMMARY | 2024-02-04 05:54 | XMS_ITS | Encounter Summary ---
Author Organization [facility] Address [address] [place] [address] Care Team Providers Care Electrical Logging Operator Name Role Phone Elsewhere, Pcp Primary Care Provider Unavailabl e Encounter Details Date Type Department Care Team (Late st Contact Info) Description 11/11/2016 Historical Ophthalmology [facility] Garrett Maradiaga M.D. [address], [place] [id number] Social History Tobacco Use Types Packs/Day Years Used Date Smoking Tobacco: Never Assessed Sex and Gender Information Value Date Recorded Sex Assigned at Female 07/21/2021 3:59 PM PRESS MAINTAINER Gender Identity Female 09/12/2020 7:45 PM PRESS MAINTAINER Sexual Orientation Straight 09/14/2020 9: 40 AM PRESS MAINTAINER documented as of this encounter Progress Notes * Garrett Maradiaga M.D. - 11/11/2016 2:25 PM CDT Eye General CHIEF COMPLAINT Annual eye exam HISTORY OF PRESENT ILLNESS 76 year old female here for annual exam. Blurred vision; both eyes; x 6 months; slowly progressive;symptoms occur primarily when reading. Headache; around the left synagogue; since August when pt had the flu; flu went away but headache lingered; on and off; symptoms reported at level of 2/10. Slightdouble vision when reading up close; pt can fix it by blinking; 6 months; images are vertical. - JMH - headaches similar when doing exercises in office - IMPRESSION / REPORT / PLAN #1 Convergence insuff and LHT Now more BELCHER and sl more double - so offer surg vs more prism - elect more prism - as above note BELCHER are reproduced w convergence so most likely CI - add prism #2 sp L ERM peel sb RI - nothing futher for ret - OCT shows thickened macular #3 glc susp Left eye based on c.d and OCT and HVF IOP acceptable on Latanoprost and cosopt - rtn toDr Bitrian w VF DIAGNOSIS #1 Convergence insuff and LHT #2 sp L ERM peel #3 glc susp Left eye based on c.d and OCT and HVF CDM Reports - EYEGEN Id: [id number] Status: Fnl documented in this encounter Plan of Treatment Not on file documented as of this encounter Visit Diagnoses Not on filedocumented in this encounter Additional Health Concerns Infection Onset Date Last Indicated Resolved Time COVID19 Pending 09/13/2020 09/13/2020 09/13/2020 1 0:20 PM PRESS MAINTAINER COVID19 Pending 12/11/2020 12/11/2020 12/12/2020 1 :06 AM CDT Assessment Noted Time PHQ-9 Depression Total Score: 0 07/07/20 12 9:38 AM PRESS MAINTAINER documented as of this encounter Care Teams Electrical Logging Operator Relationship Specialty Start Date End Date Elsewhere, Pcp PCP - General Family Medicine 12/17/20 documented as of this encounter
--- OUTSIDE RECORDS SUMMARY | 2024-02-04 05:54 | XMS_ITS | Referral Summary ---
Author Organization [facility] Address [address] [place] [address] Care Team Providers Care Hospital Cleaning Specialist Name Role Phone Elsewhere, Pcp Primary Care Provider Unavailabl e Source Comments Patient records contain information from all sites at [facility]. For routine questions regarding patient records, call [phone] during business hours, M-F 8:00 AM - 5:00 PM Central Time. Record requests for emergency care only can be directed to [phone] at any time.[facility] Encounters Date Type Department Care Team Description 12/23/2023 8:50 AM CDT Ancillary Procedure Department of Ophthalmology 12/23/2023 8:25 AM CDT Ancillary Procedure Department of Ophthalmology 12/23/2023 9:15 AM CDT Office Visit Department of Ophthalmology in [place] [address] [place] [address] Angely Miner O.D. Glaucoma (Primary Dx); Exotropia 12/23/2023 9:00 AM CDT Ancillary Procedure Department of Ophthalmology in [place], [place] [address] Angely Miner O.D. Primary Open-Angle Glaucoma Moderate Stage Left 12/23/2023 8:00 AM CDT Ancillary Procedure Department of Ophthalmology in [place], [place] [address] Angely Miner O.D. Primary Open-Angle Glaucoma Moderate Stage Left from Last 3 Months Allergies No known active allergies Medications Medication Sig Dispensed Refills Start Date End Date Status amLODIPine (NORVASC) 5 mg tablet Take 1 tablet by mouth at bedtime. 08/11/2012 Active calcium carbonate/vitamin D3 (CALCIUM 600 + D,3, ORAL) Take 1 capsule by mouth daily. Calcium 600mg / vitamin D 800 units 07/01/2012 Active cholecalciferol (VITAMIN D3) 2,000 Unit capsule Take 1 capsule by mouth daily. 06/30/2012 Active ezetimibe (ZETIA) 10 mg tablet Take 1 tablet by mouth at bedtime. 06/30/2012 Active oxybutynin (DITROPAN-XL) 5 mg 24 hr tablet Take 5 mg by mouth at bedtime. Active aspirin [address] tablet Take 1 tablet (81 mg total) by mouth daily. 81mg 09/16/2020 Active Additional Information Patient taking differently:81 mg oralDaily at bedtime, 81mg, Reported on 08/22/2021 ferrous gluconate 324 mg (37.5 mg iron) tablet Take 37.5 mg of iron by mouth daily. Active rosuvastatin (CRESTOR) 40 mg tablet Take 40 mg by mouth at bedtime. 11/25/2020 Active oxyCODONE (ROXICODONE) 5 mg immediate release tabletIndications:A cute Pain Exception Take 1 tablet (5 mg total) by mouth every 4 (four) hours as needed (pain unrelieved by Tylenol) Indication: Acute Pain Exception. 5 tablet 12/18/2020 Active acetaminophen (TYLENOL) 500 mg tablet Take 2 tablets (1,000 mg total) by mouth every 6 (six) hours as needed for pain (pain). Take 2 tablets up to four times daily for pain 0 12/18/2020 Active cephalexin (KEFLEX) 500 mg capsule TAKE ONE CAPSULE BY MOUTH TWICE A DAY FOR 7 DAYS 04/20/2022 Active dorzolamide-timoloL (COSOPT) 22.3-6.8 mg/mL ophthalmic solution Administer 1 drop into the left eye 2 (two) times a day. 10 mL 3 05/19/2023 Active latanoprost (XALATAN) 0.005 % ophthalmic solution Administer 1 drop into both eyes at bedtime. 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 Radiation Therapy Personal History 09/16/2020 Pacemaker Cardiac Status Post 09/16/2020 Sick Sinus Syndrome 04/14/2019 Overview: S/P permanent pacemaker 04/13/2019 Pure Hypercholesterolemia 06/01/2016 Hypertension Essential Primary 06/01/2016 Glaucoma 06/01/2016 Acquired Absence Of Both Cervix And Uterus 06/01 Immunizations Name Administration Dates Next Due HZV (ZOSTAVAX) 02/08/2015 Influenza (IM) Preservative Free 06/01/2013,04/03 PCV13 03/28/2015 PPSV23 06/06/2016 RZV (SHINGRIX) 09/25/2020(Deferred: Other) Tdap 06/06/2016,01/05/2012 influenza high dose (65 year s or older) (PF) 04/22/2017,04/29/2016,05/02/2015,2013,05/01/2011 Social History Tobacco Use Types Packs/Day Years Used Date Smoking Tobacco: Never Smokeless Tobacco: Never Tobacco Cessation:Counseling Given: Not Answered Alcohol Use Standard Drinks/Week Comments Not Currently 0 (1 standard drink = 0.6 oz pur e alcohol) [facility] Utilities Answer Date Recorded In the past 12 months has e [employer], gas, oil, or water [employer] threatened to shut off services in your [...] week 07/21/2021 How often do you attend [facility] or voodoo services? More than 4 times per year 07/21/2021 Do you belong to any clubs o r organizations such as protestant groups, unions, fraternal or athletic groups, or [...] Date Recorded PHQ-2 Score 0 09/24/2020 [facility] of Occupat ional Health - Occupational Stress [...] your living situation today? I have a [facility] place to live 12/16/2023 Education Answer Date Recorded What is the highest level of school you have completed or the highest degree you have received? 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 Gender Identity Female 09/12/2020 7:45 PM WOOD TILE INSTALLER Sexual Orientation Straight 09/14/2020 9: 40 AM WOOD TILE INSTALLER Last Filed Vital Signs Vital Sign Reading Time Taken Comments Blood Pressure 132/75 12/18/2020 8:40 AM CDT Pulse 81 12/18/2020 8:40 AM CDT Temperature 36.5 ??C (97.7 ??F) 12/18/2020 8:40 AM CD T Respiratory Rate 16 12/18/2020 8:40 AM CDT Oxygen Saturation 97% 12/18/2020 8:40 AM CDT Inhaled Oxygen Concentration - - Weight 75 kg (165 lb 5.5 oz) 12/17/2020 8:15 AM CDT Height 161 cm (5' 3.39) 12/17/2020 8:15 AM CDT Body Mass Index 28.93 12/17/2020 8:15 AM CDT Plan of Treatment Not on file Medical Devices Implanted Type Area Manager Money Device Identifier Shelf Expiration Date Model / Serial / Lot Medtronic 5076 Capsurefix Novus Mri Surescan [id number] Implanted:06/2019 (Quantity not on file) Cardiac Lead Medtronic 5076 CAPSUREFIX NOVUS MRI SURESCAN / [id number] / Medtronic 5076 Capsurefix Novus Mri Surescan [id number] Implanted:06/2019 (Quantity not on file) Cardiac Lead Medtronic 5076 CAPSUREFIX NOVUS MRI SURESCAN / [id number] / Clp Hrzn Ti 6 Clp Sm Red - [id number] Implanted:Qty : 1 on 12/17/2020 by Milagro Michelle M.D. at [facility] Hardware e.g. pins/screws/ rods Right: [employer]ck [employer] [id number] 03/26/2025 / / [id number] Clp Hrzn Ti 6 Clp Sm Red - [id number] Implanted:Qty : 1 on 12/17/2020 by Milagro Michelle M.D. at [facility] Hardware e.g. pins/screws/ rods Right: Neck [employer] [id number] 08/15/2024 / / [id number] Medtronic [id number] Curtis Xt [address] Quick [id number] Implanted:06/2019 (Quantity not on file) Pacemaker Medtronic [id number] CURT[address] QUICK / [id number] / Procedures Procedure Name Priority Date/Time Associated Diagnosis Comments OPTICAL COHERENCE TOMOGRAPHY (OCT) - OPTIC NERVE - OU - BOTH EYES Routine 12/23/2023 9:05 AM CDT Primary Open-Angle Glaucoma Moderate Stage Left OPHTHALMOLOGY IMAGE EXAM Routine 12/23/2023 8:50 AM CDT OPHTHALMOLOGY IMAGE EXAM Routine 12/23/2023 8:25 AM CDT AUTOMATED VF - EXTENDED - OU - BOTH EYES Routine 12/23/2023 8:00 AM CDT Primary Open-Angle Glaucoma Moderate Stage Left from Last 3 Months Results * Optical Coherence Tomography - Optic Nerve - OU - Both Eyes (12/23/2023 9:05 AM CDT) Narrative OPHTHALMOLOGY IMAGING EXAM - 12/23/2023 9:32 AM CDT OCT device used was [employer]rus . Notes SMG, see note Angely Miner O.D. OPHTH TOMOGRAPHY Performing Organization Address [facility] Co de Phone Number OPHTHALMOLOGY IMAGING EXAM * Optical Coherence Tomography (OCT)-Ophthalmology Image Exam (12/23/2023 8:50 AM CDT) Only the most recent of2 resultswithin the time period is included. 12/23/2023 8:47 AM CDT Narrative IIMS - 12/23/2023 8:57 AM CDT This order has been created and auto-finalized to support the import of images acquired without order. The clinical documentation to support these images can be found on the encounter that produced images. Provider Not In System IMG NON RAD IMAGI NG PROCEDURES Performing Organization Address [facility] Co de Phone Number IIMS NA * Automated VF - Extended - OU - Both Eyes (12/23/2023 8:00 AM CDT) Narrative OPHTHALMOLOGY IMAGING EXAM - 12/23/2023 9:32 AM CDT Right Eye Automated visual field device used was Zeiss. Strategy was JUAN. Threshold was 24-2. Eyelid was taped. Left Eye Automated visual field device used was Zeiss. Strategy was JUAN. Threshold was 24-2. Eyelid was taped. Notes See note Angely Miner O.D. OPHTH VISUAL FIE LD OPHTHALMOLOGY IMAGING EXAM from Last 3 Months Advance Directives For more information, please contact: [phone] * Full Code (Latest Code Status on File) Date Activated Date Inactivated Comments 12/17/2020 1:56 PM 12/18/2020 11:35 AM Question Answer Comments Full Code: Not Discussed Due to: Patient not available * Full Code Date Activated Date Inactivated Comments 12/17/2020 7:57 AM 12/17/2020 1:56 PM Question Answer Comments Full Code: Not Discussed Due to: Patient not available * Full Code Date Activated Date Inactivated Comments 12/13/2020 3:35 PM 12/13/2020 5:36 PM Question Answer Comments Full Code: Discussed Care Teams Hospital Cleaning Specialist Relationship Specialty Start Date End Date Elsewhere, Pcp PCP - General Family Medicine 12/17/20
--- OUTSIDE RECORDS SUMMARY | 2024-02-04 05:54 | XMS_ITS | Encounter Summary ---
Author Organization [facility] Address [address] [place] [address] Care Team Providers Care Telephone Sales Representative Name Role Phone Elsewhere, Pcp Primary Care Provider Unavailabl e Encounter Details Date Type Department Care Team (Late st Contact Info) Description 12/23/2023 8:25 AM CDT Ancillary Procedure Department of Ophthalmology Social History Tobacco Use Types Packs/Day Years Used Date Smoking Tobacco: Never Smokeless Tobacco: Never Alcohol Use Standard Drinks/Week Comments Not Currently 0 (1 standard drink = 0.6 oz pur e alcohol) [facility] Utilities Answer Date Recorded In [...] often do you attend chur ch or orthodoxy services? More than 4 times per year 07/21/2021 Do you belong to any clubs o r organizations such as rastafari groups, unions, fraternal or athletic groups, or [...] Answer Date Recorded PHQ-2 Score 0 09/24/2020 [facility] [place] of Occupat ional Health - Occupational Stress [...] Sex Assigned at Female 07/21/2021 3:59 PM ENVIRONMENTAL SERVICES ASSISTANT Gender Identity Female 09/12/2020 7:45 PM ENVIRONMENTAL SERVICES ASSISTANT Sexual Orientation Straight 09/14/2020 9: 40 AM ENVIRONMENTAL SERVICES ASSISTANT documented as of this encounter Plan of Treatment Not on file documented as of this encounter Procedures Procedure Name Priority Date/Time Associated Diagnosis Comments OPHTHALMOLOGY IMAGE EXAM Routine 12/23/2023 8:25 AM CDT documented in this encounter Results * Visual Waterman (VF)-Ophthalmology Image Exam (12/23/2023 8:25 AM CDT) 12/23/2023 8:25 AM CDT Narrative IIMS - 12/23/2023 8:28 AM CDT This order has been created [...] Total Score: 0 07/07/20 12 9:38 AM ENVIRONMENTAL SERVICES ASSISTANT documented as of this encounter Care Teams Telephone Sales Representative Relationship Specialty Start Date End Date Elsewhere, Pcp PCP - General Family Medicine 12/17/20 documented as of this encounter
--- OUTSIDE RECORDS SUMMARY | 2024-02-04 05:54 | XMS_ITS ---
Author Organization [facility] Address [address] [place] [address] Care Team Providers Care Sustainable Systems Analyst Name Role Phone Elsewhere, Pcp Primary Care Provider Unavailabl e Active Problems Problem Noted Date Diagnosed Date Exotropia 09/11/2021 Primary Open-Angle Glaucoma Moderate Stage Bilat eral 07/24/2021 After Cataract Membrane Vision Obscured Right Preglaucoma Right 07/24/2021 Nodule Thyroid 11/29/2020 Overview: Added automatically from request for surgery [id number] Gastroesophageal Reflux Disease Without Esophagi tis 11/19/2020 Overview: Added automatically from request for surgery [id number] Pain Chest Atypical 09/16/2020 Macrocytosis 09/16/2020 Melanoma In Situ 09/16/2020 Cancer Breast Personal History 09/16/2020 Overview: 2011 right stage 1A invasive ductal carcinoma ER/SD+ HER2- status post lumpectomy and radiotherapy. Radiation Therapy Personal History 09/16/2020 Pacemaker Cardiac Status Post 09/16/2020 Sick Sinus Syndrome 04/14/2019 Overview: S/P permanent pacemaker 04/13/2019 Pure Hypercholesterolemia 06/01/2016 Hypertension Essential Primary 06/01/2016 Glaucoma 06/01/2016 Acquired Absence Of Both Cervix And Uterus 06/01 Current Oncology Plans No current plan information found. Past Plans No past plan information found. Radiation Treatments * No radiation treatments are documented for this patient in [facility]. Treatments may have been administered in another system. Lifetime Dose Tracking * Chemical Lifetime Dose Automatic Entry Manual Entr y Radiation 2.8 mGy 2.8 mGy 0 mGy Fluoro Time 0.6 minutes 0.6 minutes 0 minutes DAP (Gy-cm2) 0.715 Gy-cm2 0.715 Gy-cm2 0 Gy-cm2
--- OUTSIDE RECORDS SUMMARY | 2024-02-04 05:54 | XMS_ITS | Encounter Summary ---
Author Organization [facility] Address [address] [place] [address] Care Team Providers Care Record Keeper Name Role Phone Elsewhere, Pcp Primary Care Provider Unavailabl e Reason for Referral * Outpatient (Routine) - Authorized Specialty Diagnoses / Procedures Referred By Contac t Referred To Contact Ophthalmology Angely Miner O.D. [address] [place] [address] [facility] Referral ID Status Reason Start Date Expiration Date V isits Requested Visits Authorized [id number] Authorized 12/23/2023 06/23/2025 1 1 * Outpatient (Routine) - Authorized Specialty Diagnoses / Procedures Referred By Contac t Referred To Contact Ophthalmology Diagnoses Exotropia Angely Miner O.D. [address] [place] [address] [facility] Referral ID Status Reason Start Date Expiration Date V isits Requested Visits Authorized [id number] Authorized 12/23/2023 06/23/2025 1 1 Scheduling Instructions [place] Reason for Visit * Reason Comments Glaucoma * Outpatient (Routine) - Closed Specialty Diagnoses / Procedures Referred By Contac t Referred To Contact Ophthalmology Angely Miner O.D. [address] [place] [address] [facility] Referral ID Status Reason Start Date Expiration Date Visits Re quested Visits Authorized [id number] Closed 06/22/2023 06/21/2026 1 1 Encounter Details Date Type Department Care Team (Latest Contact Info) Description 12/23/2023 9:15 AM CDT Office Visit Department of Ophthalmology in [place], [place] [address] [place] [phone] Angely Miner O.D. [address] [place] [address] Glaucoma (Primary Dx); Exotropia Social History Tobacco Use Types Packs/Day Years Used Date Smoking Tobacco: Never Smokeless Tobacco: Never Alcohol Use Standard Drinks/Week Comments Not Currently 0 (1 standard drink = 0.6 oz pur e alcohol) [facility] Utilities Answer Date Recorded In the past 12 months has e [employer], gas, oil, or water [employer] threatened to shut off services in your [...] week 07/21/2021 How often do you attend [facility] or restorationist services? More than 4 times per year 07/21/2021 Do you belong to any clubs o r organizations such as bahai groups, unions, fraternal or athletic groups, or [...] Answer Date Recorded PHQ-2 Score 0 09/24/2020 [facility] of Occupat ional Health - Occupational Stress [...] your living situation today? I have a [facility] place to live 12/16/2023 Education Answer Date Recorded What is the highest level of school you have completed or the highest degree you have received? 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 - 12/23/2023 9:15 AM CDT #1 Primary open angle glaucoma, left [employer] high teens; CCT 540/511; Tmax OCT 10/19 (NFL): right - normal, good signal; left - thin sup, good signal, stable VF 03/22 (CÉSAR): right - ?nasal step, stable; left - inf arc, sup nasal, unreliable (FL), likely stable IOP acceptable both without dilation Continue latanoprost qhs left and Cosopt BID left F/u 6 months with CÉSAR, OCT - Dr. Miner 04/2022 césar: doubt sup arc right eye. Left eye inferior arc, sup defect Re sup scatter vs arc, doubt arc, 9/14 fl. OCT: RNFL 87/72, RE green, LE thin sup. No definite progression. Continue current drops. RTC 6 mo with césar and oct. 05/2023 OCT: Re and Le flagging possible progression. Re green. Le thin sup. RMF: 85/73 CÉSAR: Re flagging possible progression, Re scatter vs early arc, 4/14 fl. Le inferior arc, stable. Continue current drops. Get repeat césar right eye and oct both. Portal message. Addendum 06/22/23: César: Re superior arc, early, progression confirmed. OCT: Re green. Le thin sup. RNFL 87/76. Le variable, but stable with gpa. Re progression. Would recommend adding Latanoprost to the right eye as well. So now latanoprost at bedtime both. Cosopt bid left eye only. RTC 6 mo with césar and oct 12/2023: OCT: RE stable per gpa. Le stable per gpa. RNFL 87/72 Re green. Le thin sup. César; left eye inferior arc, stable. Re scatter, stable latanoprost at bedtime both. Cosopt bid left eye only. RTC 6 mo with césar #2 Pseudophakia, both S/p YAG capsulotomy both eyes (right eye 07/24/21) Dilated exam with no tears or detachments. #3 Strabismus Previously followed with Dr. Maradiaga, to see Dr. Welch Recently saw Isabel roberts 05/2022: get updated refraction and sensory motor exam. 06/2023 had updated sensory motor exam 12/2023: get exam with Dr Welch #4 Epiretinal membrane, left S/p pars plana vitrectomy/MP With peripheral laser retinopexy documented in this encounter Plan of Treatment Scheduled Orders Name Type Priority Associated Diagnoses Orde r Schedule Automated VF - Extended - OU - Both Eyes Ophthalmology Routine Glaucoma Expected: 06/24/2024, Expires: 03/24/2025 Scheduled Referrals Name Type Priority Associated Diagnoses Order Schedule Ophthalmology - Adult strabismus consult (clinic) Outpatient Referral Routine Exotropia Expected: 12/23/2023, Expires: 03/24/2025 Ophthalmology office visit (clinic) Outpatient Referral Routine Expected: 06/24/2024 (Approximate), Expires: 03/24/2025 documented as of this encounter Visit Diagnoses Diagnosis Glaucoma- Primary Exotropia documented in this encounter Additional Health Concerns Assessment Noted Time PHQ-9 Depression Total Score: 0 07/07/20 12 9:38 AM LOCK AND DAM OPERATOR documented as of this encounter Care Teams Record Keeper Relationship Specialty Start Date End Date Elsewhere, Pcp PCP - General Family Medicine 12/17/20 documented as of this encounter
--- OUTSIDE RECORDS SUMMARY | 2024-02-04 05:54 | XMS_ITS | Continuity of Care Document ---
Author Organization [facility] Address [address] [place] [address] Phone Care Team Providers Care Director Correctional Agency Name Role Phone Harley Jordan MD Unavailable [...] Available - Active Procedures Procedure Date Office/Outpatient Visit,[facility] 2015 Advance Directives Directive Yes / No Effective Date File Name No Information Encounters Encounter Description Practice Location Reason(s) For Visit Diagnoses Date Provider Providers Copied on Encounter [facility], [address], [place], [id number], [place] tel:[phone] [facility] [place] No Information Nikki Souza. [facility], [address] [place] [address], [facility] [address], [facility] [place], [id number] , [place]. tel:[phone] Office/Outpat ient Visit,[facility], [address], [place], [id number], [place] tel:[phone] [facility] [place] Spondylolisth esis, lumbar regionPain in lower leg Nikki Souza. [facility], [address], [address], [place], [place], [id number] , [place]. tel:[phone] Referring Provider: Abhi Weldon, [facility] [address] [place] [address], [address]. tel:[phone] Family History Family Member Type Diagnosis Age At Onset Problem (finding) Payers Payer name Insurance type Covered green party ID Authoriza tion(s) Medicare MB [id number] [facility] [id number] [facility] [id number] Social History Type Description Quantity Date Captured [...]
--- OUTSIDE RECORDS SUMMARY | 2024-02-04 05:54 | XMS_ITS | Encounter Summary ---
Author Organization [facility] Address [address] [place] [address] Care Team Providers Care Lifeguard Name Role Phone Elsewhere, Pcp Primary Care Provider Unavailabl e Encounter Details Date Type Department Care Team (Late st Contact Info) Description 12/17/2016 Historical Ophthalmology [facility] Susan Hernandez M.D. [address] [place] [phone] Social History Tobacco Use Types Packs/Day Years Used Date Smoking Tobacco: Never Assessed Sex and Gender Information Value Date Recorded Sex Assigned at Female 07/21/2021 3:59 PM STEEL POURER HELPER Gender Identity Female 09/12/2020 7:45 PM STEEL POURER HELPER Sexual Orientation Straight 09/14/2020 9: 40 AM STEEL POURER HELPER documented as of this encounter Progress Notes * Susan Hernandez M.D. - 12/17/2016 10:34 AM CDT Eye General CHIEF COMPLAINT Follow up glaucoma suspect HISTORY OF PRESENT ILLNESS Blurred vision; both eyes; x 1 year; gradually worsening. Floaters; on and off; left eye; unchanged. Notes left eye wooten frequently. Denies ocular pain and flashes of light. IMPRESSION / REPORT / PLAN #1 Glaucoma [...] eye normal , left eye inferior arcuate VF 14 Feb 2016 : right eye normal , left eye inferior arcuate (corrspond to extensive PRP laser area) Plan: Stable continue latanoprost bid OS Continue cosopt bid [...] eye pain CDM Reports - [facility] Id: [id number] Status: Fnl documented in this encounter Plan of Treatment Not on file documented as of this encounter Visit Diagnoses Not on filedocumented in this encounter Additional Health Concerns Infection Onset Date Last Indicated Resolved Time COVID19 Pending 09/13/2020 09/13/2020 09/13/2020 1 0:20 PM STEEL POURER HELPER COVID19 Pending 12/11/2020 12/11/2020 12/12/2020 1 :06 AM CDT Assessment Noted Time PHQ-9 Depression Total Score: 0 07/07/20 12 9:38 AM STEEL POURER HELPER documented as of this encounter Care Teams Lifeguard Relationship Specialty Start Date End Date Elsewhere, Pcp PCP - General Family Medicine 12/17/20 documented as of this encounter
--- OUTSIDE RECORDS SUMMARY | 2024-02-04 05:54 | XMS_ITS | Encounter Summary ---
Author Organization [facility] Address [address] [place] [address] Care Team Providers Care Continuous Mining Machine Operator Name Role Phone Elsewhere, Pcp Primary Care Provider Unavailabl e Encounter Details Date Type Department Care Team (Latest Contact Info) Description 12/23/2023 9:00 AM CDT Ancillary Procedure Department of Ophthalmology in [place], [place] [address] [place] [phone] Angely Miner O.D. [address] [place] [address] Primary Open-Angle Glaucoma Moderate Stage Left Social History Tobacco Use Types Packs/Day Years Used Date Smoking Tobacco: Never Smokeless Tobacco: Never Alcohol Use Standard Drinks/Week Comments Not Currently 0 (1 standard drink = 0.6 oz pur e alcohol) [facility] Utilities Answer Date Recorded In the past 12 months has [facility] [employer], gas, oil, or water u[employer]il me threatened to shut off services in your [...] 07/21/2021 How often do you attend chur or yarsanism services? More than 4 times per year 07/21/2021 Do you belong to any clubs o r organizations such as taoism groups, unions, fraternal or athletic groups, or [...] Answer Date Recorded PHQ-2 Score 0 09/24/2020 [facility] of Occupat ional Health - Occupational Stress [...] your living situation today? I have a [facility] place to live 12/16/2023 Education Answer Date Recorded What is the highest level of school you have completed or the highest degree you have received? Bachelor's degree (e.g., BA, AB, BS) 09/12/2020 Sex and Gender Information Value Date Recorded Sex Assigned at Female 07/21/2021 3:59 PM CONTRACTOR GENERAL BUILDING Gender Identity Female 09/12/2020 7:45 PM CONTRACTOR GENERAL BUILDING Sexual Orientation Straight 09/14/2020 9: 40 AM CONTRACTOR GENERAL BUILDING documented as of this encounter Plan of Treatment Not on file documented as of this encounter Procedures Procedure Name Priority Date/Time Associated Diagnosis Comments OPTICAL COHERENCE TOMOGRAPHY (OCT) - OPTIC NERVE - OU - BOTH EYES Routine 12/23/2023 9:05 AM CDT Primary Open-Angle Glaucoma Moderate Stage Left documented in this encounter Results * Optical Coherence Tomography - Optic Nerve - OU - Both Eyes (12/23/2023 9:05 AM CDT) Narrative OPHTHALMOLOGY IMAGING EXAM - 12/23/2023 9:32 AM CDT OCT device used was [employer] . Notes SMG, see note Angely Miner O.D. OPHTH TOMOGRAPHY OPHTHALMOLOGY IMAGING EXAM documented in this encounter Visit Diagnoses Diagnosis Primary Open-Angle Glaucoma Moderate Stage Left documented in this encounter Additional Health Concerns Assessment Noted Time PHQ-9 Depression Total Score: 0 07/07/20 12 9:38 AM CONTRACTOR GENERAL BUILDING documented as of this encounter Care Teams Continuous Mining Machine Operator Relationship Specialty Start Date End Date Elsewhere, Pcp PCP - General Family Medicine 12/17/20 documented as of this encounter
--- OUTSIDE RECORDS SUMMARY | 2024-02-04 05:54 | XMS_ITS | Clinical Summary ---
Author Organization [facility] Address [place], [place] [address] Care Team Providers Care Trust Accounts Supervisor Name Role Phone Abhi Weldon MD Primary Care Provider Allergies No known active allergies Medications Medication Sig Dispensed Refills Start Date End Date Status amLODIPine (NORVASC) 5 mg tablet Take 1 tablet by mouth once daily. 0 6 Active dorzolamide-timolol, PF, 2-0.5 % ophthalmic solution Place into the eye(s). 0 6 Active latanoprost (XALATAN) 0.005 % ophthalmic solution Place 1 Drop into left eye at bedtime. 2.5 mL 6 Active rosuvastatin (CRESTOR) 40 mg tabletIndications:Pure hypercholesterolemia Take 1 Tablet (40 mg) by mouth at bedtime. 90 Tablet 4 Active ezetimibe (ZETIA) 10 mg tabletIndications:Pure hypercholesterolemia Take 1 Tablet (10 mg) by mouth once daily. Please call [phone] 2 months in advance to schedule an office visit due in October 2024 90 Tablet 3 4 Active ezetimibe (ZETIA) 10 mg tabletIndications:Pure hypercholesterolemia Take 1 Tablet (10 mg) by mouth once daily. 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 06/01/2016 Essential hypertension 06/01/2016 Pure hypercholesterolemia 06/01/2016 Breast cancer, stage 1 06/01/2016 Glaucoma 06/01/2016 Status post cholecystectomy 06/01/2016 Status post hysterectomy 06/01/2016 Encounters Date Type Department Care Team Description 01/10/2024 Refill [facility] [address] [place] [address] Schuyler Calderon MD Refill Request (Ezetimibe) 11/09/2023 9:30 AM CDT Office Visit [facility] [address] [place] [address] Schuyler Calderon MD Follow Up (10/13/23 - Echo ) 11/09/2023 Travel from Last 3 Months Immunizations Name Administration Dates Next Due COVID-19 vaccine (Active International NTBe At One 30mcg/0.3mL) ELI TOLLIVER 01/10/2021,11/02/2020 Influenza Virus, Unspecified 04/23/2020, 06/07/2019,06/08/2018,2016,04/29/2016,05/02/2015,05/01/2014,1 ,04/21/2012 Influenza, High-dose Inactivated 019,06/08/2018,04/22/2017,2015,05/02/2015,05/01/2014,05/01/2011 Influenza, IIV3 (Age 6-35 mos) 06/01/2013,2011 Influenza, Inactivated AIIV4 (Age 65+ Years) Preserv Free 04/23/2020 Pneumococcal Poly,23-Valent (Pneumovax) 03/16/2018,06/06/2016,08/16/2006 Pneumococcal conj 13-Valent (Prevnar 13) 03/28/2015 Td, Preservative Free (age > = 7 Years) 01/05/2012 Tdap 06/06/2016,01/05/2012 Zoster (Shingrix-RZV, recombinant) 03/16/2018 Zoster (Zostavax-ZVL, live) 02/08/2015 Zoster, Unspecified Formulation 09/25/2020(Defer red: Patient Refused) Family History Medical History Relation Name Comments Heart attack Father Heart attack Mother Relation Name Status Comments Father Mother Social History Tobacco Use Types Packs/Day Years Used Date Smoking Tobacco: Never Smokeless Tobacco: Never Tobacco Cessation:Counseling Given: Yes Alcohol Use Standard Drinks/Week Comments Yes 0 (1 standard drink = 0.6 oz pure alcohol) Glass of wine every afternoon. One glass per day. PHQ-2 Answer Date Recorded PHQ-2 TOTAL SCORE 0 09/10/2021 Social Connections Answer Date Recorded Frequency of Communication with Friends and Fami ly Not on file 07/24/2021 Financial Resource Strain Answer Date R ecorded Difficulty of Paying Living Expenses Not on file 07/24/2021 Difficulty of Paying Living Expenses Not on file 07/24/2021 Sex and Gender Information Value Date Recorded Sex Assigned at Not on file Gender Identity Not on file Sexual Orientation Not on file Obstetrics History Last Filed Vital Signs Vital Sign Reading Time Taken Comments Blood Pressure 138/79 11/09/2023 9:26 AM CDT Pulse 83 11/09/2023 9:26 AM CDT Temperature 36.7 ??C (98 ??F) 05/19/2021 9:13 AM CDT Respiratory Rate 16 10/06/2021 3:07 PM HEATING PLANT SUPERINTENDENT Oxygen Saturation 96% 11/09/2023 9:26 AM CDT Inhaled Oxygen Concentration - - Weight 76.7 kg (169 lb 3.2 oz) 11/09/2023 9:26 A M CDT Height 165.1 cm (5' 5) 10/01/2022 2:41 PM HEATING PLANT SUPERINTENDENT Body Mass Index 28.16 10/01/2022 2:41 PM HEATING PLANT SUPERINTENDENT Plan of Treatment Health Maintenance Due Date Last Done Comments DEXA/DXA scan for age 65+ 01/08/2004 Zoster (shingles) series for age 50+ (3 of 3) 05/11/2018 03/16/2018, 02/08/2015 Depression screening for age 12+ 09/10/2022 09/10/19 22 Medicare Wellness for age 65+ 09/11/2022 09/10/2021 COVID-19 vaccine series ( season) 2023 10/25/2021, 01/10/2021, 11/02/2020 BMI (ht and wt on same day) for age 18+ 10/02/2023 10/01/2022, 09/10/2021, 12/21/2019, Additional history exists Influenza for age 65+ 04/02/2024 04/23/2020 , 04/23/2020, 06/07/2019, Additional history exists Tetanus booster 06/06/2026 06/06/2016, 12/2011, 01/05/2012 Tdap Completed 06/06/2016, 01/05/2012 Pneumococcal series for age 65+ Completed 03/16/2018, 06/06/2016, 03/28/2015, Additional history exists Advance Directives * Full Code (Latest Code Status on File) Date Activated Date Inactivated Comments 04/13/2019 5:31 PM 04/14/2019 3:03 PM Question Answer Comments Code Status Discussion: Not Discussed * Full Code Date Activated Date Inactivated Comments 06/05/2016 12:44 PM 06/05/2016 5:08 PM * Full Code Date Activated Date Inactivated Comments 06/05/2016 12:40 PM 06/05/2016 12:44 PM * Full Code Date Activated Date Inactivated Comments 06/05/2016 8:14 AM 06/05/2016 12:40 PM Care Teams Trust Accounts Supervisor Relationship Specialty Start Date End Date Abhi Weldon MD [address] [place] [id number] PCP - General Emergency Medicine 05/19/16
--- OUTSIDE RECORDS SUMMARY | 2024-02-04 05:54 | XMS_ITS | Encounter Summary ---
Author Organization [facility] Address [address] [place] [address] Care Team Providers Care Software Design Manager Name Role Phone Elsewhere, Pcp Primary Care Provider Unavailabl e Encounter Details Date Type Department Care Team (Latest Contact Info) Description 12/23/2023 8:00 AM CDT Ancillary Procedure Department of Ophthalmology in [place], [place] [address] [place] [phone] Angely Miner O.D. [address] [place] [address] Primary Open-Angle Glaucoma Moderate Stage Left Social History Tobacco Use Types Packs/Day Years Used Date Smoking Tobacco: Never Smokeless Tobacco: Never Alcohol Use Standard Drinks/Week Comments Not Currently 0 (1 standard drink = 0.6 oz pur e alcohol) [facility] Utilities Answer Date Recorded In the past 12 months has [facility] [employer], gas, oil, or water [employer] threatened to shut off services in your [...] How often do you attend chur or sikhism services? More than 4 times per year 07/21/2021 Do you belong to any clubs o r organizations such as restorationism groups, unions, fraternal or athletic groups, or [...] Date Recorded PHQ-2 Score 0 09/24/2020 [facility] of Occupat ional Health - Occupational [...] your living situation today? I have a [facility] place to live 12/16/2023 Education Answer Date Recorded What is the highest level of school you have completed or the highest degree you have received? Bachelor's degree (e.g., BA, AB, BS) 09/12/2020 Sex and Gender Information Value Date Recorded Sex Assigned at Female 07/21/2021 3:59 PM POSTMASTER RELIEF Gender Identity Female 09/12/2020 7:45 PM POSTMASTER RELIEF Sexual Orientation Straight 09/14/2020 9: 40 AM POSTMASTER RELIEF documented as of this encounter Plan of Treatment Not on file documented as of this encounter Procedures Procedure Name Priority Date/Time Associated Diagnosis Comments AUTOMATED VF - EXTENDED - OU - BOTH EYES Routine 12/23/2023 8:00 AM CDT Primary Open-Angle Glaucoma Moderate Stage Left documented in this encounter Results * Automated VF - Extended - OU [...] OPHTH VISUAL FIE LD OPHTHALMOLOGY IMAGING EXAM documented in this encounter Visit Diagnoses Diagnosis Primary Open-Angle Glaucoma Moderate Stage Left documented in this encounter Additional Health Concerns Assessment Noted Time PHQ-9 Depression Total Score: 0 07/07/20 12 9:38 AM POSTMASTER RELIEF documented as of this encounter Care Teams Software Design Manager Relationship Specialty Start Date End Date Elsewhere, Pcp PCP - General Family Medicine 12/17/20 documented as of this encounter
--- OUTSIDE RECORDS SUMMARY | 2024-02-04 05:54 | XMS_ITS | Encounter Summary ---
Author Organization [facility] Address [address] [place] [address] Care Team Providers Care Graphic Art Technician Name Role Phone Elsewhere, Pcp Primary Care Provider Unavailabl e Encounter Details Date Type Department Care Team (Latest Contact Info) Description 09/29/2023 Clinical Communication Department of Ophthalmology in [place], [place] [address] [place] [phone] Angely Miner O.D. [address] [place] [address] Social History Tobacco Use Types Packs/Day Years Used Date Smoking Tobacco: Never Smokeless Tobacco: Never Alcohol Use Standard Drinks/Week Comments Not Currently 0 (1 standard drink = 0.6 oz pur e alcohol) Humiliation, Afraid, Rape, and Kick questionnair e [...] often do you attend chur ch or mu-ism services? More than 4 times per year 07/21/2021 Do you belong to any clubs o r organizations such as jain groups, unions, fraternal or athletic groups, or [...] Answer Date Recorded PHQ-2 Score 0 09/24/2020 [facility] of Occupat ional Health - Occupational [...] to strenuous exercise (like a brisk walk)? 3 days 07/21/2021 On average, how many minutes do you engage in exercise at this level? 30 min 07/21/2021 Hunger Vital Sign Answer Date Recorded Within the past 12 months, y ou worried that your food would run out before you got the money to buy more. Never true 07/21/20 Within the past 12 months, t he food you bought just didn't last and you didn't have money to get more. Never true 07/21/2021 PRAPARE - Transportation Answer Date Re corded In the past 12 months, has l ack of transportation kept you from medical appointments or from getting medications? No 07/03 In the past 12 months, has l ack of transportation kept you from meetings, work, or from getting things needed for daily living? No 07/21/2021 Housing Stability Vital Sign Answer Minh e Recorded In the last 12 months, was t here a time when you were not able to pay the mortgage or rent on time? No 07/21/2021 In the last 12 months, how many places have you lived? 1 07/21/2021 In the last 12 months, was t here a time when you did not have a steady place to sleep or slept in a intermediate (including now)? No 07/21/2021 Nutrition Answer Date Recorded Nutrition: EVOO Fat Source No 07/21 On average, how many serving s of fruits and vegetables do you eat per day (serving size is equal to 1 cup or approximately the size of a tennis ball)? 2-3 07/21/2021 Dental Answer Date Recorded Dental: Regular Dentist Yes 08/01/20 Employment Answer Date Recorded Employment status Retired 07/21/2021 Education Answer Date Recorded What is the highest level of school you have completed or the highest degree you have received? Bachelor's degree (e.g., BA, AB, BS) 09/12/2020 Sex and Gender Information Value Date Recorded Sex Assigned at Female 07/21/2021 3:59 PM SENIOR ANIMATOR Gender Identity Female 09/12/2020 7:45 PM SENIOR ANIMATOR Sexual Orientation Straight 09/14/2020 9: 40 AM SENIOR ANIMATOR documented as of this encounter Plan of Treatment Not on file documented as of this encounter Visit Diagnoses Not on filedocumented in this encounter Additional Health Concerns Assessment Noted Time PHQ-9 Depression Total Score: 0 07/07/20 12 9:38 AM SENIOR ANIMATOR documented as of this encounter Care Teams Graphic Art Technician Relationship Specialty Start Date End Date Elsewhere, Pcp PCP - General Family Medicine 12/17/20 documented as of this encounter
--- OUTSIDE RECORDS SUMMARY | 2024-02-04 05:54 | XMS_ITS ---
Author Organization [facility] Address [address] [place] [address] Care Team Providers Care Rn Urology Name Role Phone Unavailable Unavailable Unavailable Surgery Details Not on file Complications Check Surgery Details section. Procedure Estimated Blood Loss Check Surgery Details section. Procedure Findings Check Surgery Details section. Procedure Specimens Taken Check Surgery Details section.
--- OUTSIDE RECORDS SUMMARY | 2024-02-04 05:54 | XMS_ITS | Clinical Summary ---
Author Organization [facility] Address [address] [place] [address] Care Team Providers Care Treating Engineer Helper Name Role Phone Elsewhere, Pcp Primary Care Provider Unavailabl e Source Comments Patient records contain information from all sites at [facility]. For routine questions regarding patient records, call [phone] during business hours, M-F 8:00 AM - 5:00 PM Central Time. 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 Glaucoma (Primary Dx); Exotropia 12/23/2023 9:00 AM CDT Ancillary Procedure Department of Ophthalmology in [place] [address] [place] [address] Angely Miner O.D. Primary Open-Angle Glaucoma Moderate Stage Left 12/23/2023 8:50 AM CDT Ancillary Procedure Department of Ophthalmology 12/23/2023 8:25 AM CDT Ancillary Procedure Department of Ophthalmology 12/23/2023 8:00 AM CDT Ancillary Procedure Department of Ophthalmology in [place] [address] [place] [address] Angely Miner O.D. Primary Open-Angle Glaucoma Moderate Stage Left from Last 3 Months Immunizations Name Administration Dates Next Due HZV (ZOSTAVAX) 02/08/2015 Influenza (IM) Preservative Free 06/01/2013,04/03 PCV13 03/28/2015 PPSV23 06/06/2016 RZV (SHINGRIX) 09/25/2020(Deferred: Other) Tdap 06/06/2016,01/05/2012 influenza high dose (65 year s or older) (PF) 04/22/2017,04/29/2016,05/02/2015,2013,05/01/2011 Family History Medical History Relation Name Comments Coronary artery disease Father Quentin Coronary artery disease Mother Annmarie Diabetes Mother Annmarie Breast cancer Sister Cheryl at 69 allie ast cancer Glaucoma Neg Hx Macular degeneration Neg Hx Relation Name Status Comments Father Quentin Mother Annmarie Sister Cheryl Social History Tobacco Use Types Packs/Day Years Used Date Smoking Tobacco: Never Smokeless Tobacco: Never Tobacco Cessation:Counseling Given: Not Answered Alcohol Use Standard Drinks/Week Comments Not Currently 0 (1 standard drink = 0.6 oz pur e alcohol) [facility] Utilities Answer Date Recorded In the past 12 months has th e electric, [employer], oil, or water [employer] threatened to shut off services in your [...] How often do you attend chur or jew services? More than 4 times per year [...] Answer Date Recorded PHQ-2 Score 0 09/24/2020 [facility] Occupat ional [facility] - Occupational Stress Questionnaire Answer Date Recorded [...] your living situation today? [facility] 12/16/2023 Education Answer Date Recorded What is the highest level of school you have completed or the highest degree you have received? Bachelor's degree (e.g., BA, AB, BS) 09/12/2020 Sex and Gender Information Value Date Recorded Sex Assigned at Female 07/21/2021 3:59 PM ADVANCED MANUFACTURING ASSOCIATE Gender Identity Female 09/12/2020 7:45 PM ADVANCED MANUFACTURING ASSOCIATE Sexual Orientation Straight 09/14/2020 9: 40 AM ADVANCED MANUFACTURING ASSOCIATE Last Filed Vital Signs Vital Sign Reading [...] 12/17/2020 8:15 AM CDT Plan of Treatment Health Maintenance Due Date Last Done Comments Office Visit for Blood Press ure Check / Re-check 1939 Zoster Vaccines (3 of 3) 05/11/2018 03/16/2018, 01/30 COVID-19 Vaccine (4 - 2022-2 4 season) 2023 10/25/2021, 01/10/2021, 11/02/2020 Depression Screening (Annual PHQ-2) 08/02/2023 Fall Risk Screen (Annual) 08/02/2023 Influenza Vaccine (#1) 2024 , 06/07/2019, 06/08/2018, Additional history exists DTaP,Tdap,and Td Vaccines (3 - Td or Tdap) 06/06/2026 06/06/2016, 01/05/2012, 01/05/2012 Pneumococcal vaccine (65+ years) Completed 03/16/2018, 06/06/2016, 03/28/2015, Additional history exists Medical Devices Implanted Type Area Social Work Assistant Device Identifier Shelf Expiration Date Model / Serial / Lot Medtronic 5076 Capsurefix Novus Mri Surescan [id number] Implanted:06/2019 (Quantity not on file) Cardiac Lead Medtronic 5076 CAPSUREFIX NOVUS MRI SURESCAN / [id number] / Medtronic 5076 Capsurefix Novus Mri Surescan [id number] Implanted:06/2019 (Quantity not on file) Cardiac Lead Medtronic 5076 CAPSUREFIX NOVUS MRI SURESCAN / [id number] / Clp Hrzn Ti 6 Clp Sm Red - [id number] Implanted:Qty : 1 on 12/17/2020 by Milagro Michelle M.D. at [facility] Hardware e.g. pins/screws/ rods Right: Neck [employer] [id number] 03/26/2025 / / [id number] Clp Hrzn Ti 6 Clp Sm Red - [id number] Implanted:Qty : 1 on 12/17/2020 by Milagro Michelle M.D. at [facility] Hardware e.g. pins/screws/ rods Right: Neck [employer] [id number] 08/15/2024 / / [id number] Medtronic [id number] [place] X[address] Quick [id number] Implanted:06/2019 (Quantity not on file) Pacemaker Medtronic [id number] CURTIS XT DR QUICK / [id number] / Procedures Procedure Name Priority Date/Time Associated [...] Miner O.D. OPHTH TOMOGRAPHY OPHTHALMOLOGY IMAGING EXAM * Optical Coherence Tomography [...] RAD IMAGI NG PROCEDURES Performing Organization Address [facility] Co de Phone Number IIMS NA * [...] Angely Miner O.D. OPHTH VISUAL FIE LD Performing Organization Address [facility] Co de Phone Number OPHTHALMOLOGY IMAGING EXAM from Last 3 Months Advance Directives For more information, please contact: [phone] * Full Code (Latest Code Status on [...] Answer Comments Full Code: Discussed Care Teams Treating Engineer Helper Relationship Specialty Start Date End Date Elsewhere, Pcp PCP - General Family Medicine 12/17/20
--- OUTSIDE RECORDS SUMMARY | 2024-02-04 05:55 | XMS_ITS | Encounter Summary ---
Author Organization [facility] Address [address] [place] [address] Care Team Providers Care Nuisance Wildlife Control Operator Name Role Phone Elsewhere, Pcp Primary Care Provider Unavailabl e Encounter Details Date Type Department Care Team (Late st Contact Info) Description 05/05/2007 Historical Ophthalmology RST OPH Danielle Quintero M.D. [address] [place] [address] Social History Tobacco Use Types Packs/Day Years Used Date Smoking Tobacco: Never Assessed Sex and Gender Information Value Date Recorded Sex Assigned at Female 07/21/2021 3:59 PM MANAGER HAIR Gender Identity Female 09/12/2020 7:45 PM MANAGER HAIR Sexual Orientation Straight 09/14/2020 9: 40 AM MANAGER HAIR documented as of this encounter Progress Notes * Danielle Quintero M.D. - 05/05/2007 7:54 AM CDT Eye General CHIEF COMPLAINT Evaluation Epiretinal membrane, left eye HISTORY OF PRESENT ILLNESS This is a 67 year old female here for an evaluation of epiretinal membrane left eye. Has been diagnosed (about 3 years ago) and told that this occurs when someone gets older. Patient wondering if this is accurate information. Also has occasional throbbing in the left eye. Usually occurs at night and will go away within a few minutes. States that she is noticing a dimming of light in the right eye. Wondering if this could possible be an ERM beginning in the right eye as well. Has IOL's both eyes. Vision has never been great since the cataract surgery, left eye. Needs to cover left eye to read.Has trouble driving; distance lens is in left eye. Denies any other eye pain. Denies flashes of light or floaters. Notes distortion, left eye IMPRESSION / REPORT / PLAN #1 Epiretinal membrane, left eye Discussed PPV, MP, discussed possible gas, left eye versus observation. Discussed risks, goals, alternatives, advance directives, and the necessity of other members of the healthcare team participating in the procedure with the patient (or legal retail service representative and others present during the discussion). The patient understands and wishes to think about it. literature given. #2 Posterior vitreous detachment, left eye #3 Pseudophakia, both eyes s/p YAG capsulotomy left eye DIAGNOSIS #1 Epiretinal membrane, left eye #2 Posterior vitreous detachment, left eye #3 Pseudophakia, both eyes CDM Reports - EYEGEN Id: [id number] Status: Fnl documented in this encounter Plan of Treatment Not on file documented as of this encounter Visit Diagnoses Not on filedocumented in this encounter Additional Health Concerns Infection Onset Date Last Indicated Resolved Time COVID19 Pending 09/13/2020 09/13/2020 09/13/2020 1 0:20 PM MANAGER HAIR COVID19 Pending 12/11/2020 12/11/2020 12/12/2020 1 :06 AM CDT documented as of this encounter Care Teams Nuisance Wildlife Control Operator Relationship Specialty Start Date End Date Elsewhere, Pcp PCP - General Family Medicine 12/17/20 documented as of this encounter
--- OUTSIDE RECORDS SUMMARY | 2024-02-04 05:55 | XMS_ITS | Encounter Summary ---
Author Organization [facility] Address [address] [place] [address] Care Team Providers Care Rn Practitioner Name Role Phone Elsewhere, Pcp Primary Care Provider Unavailabl e Encounter Details Date Type Department Care Team (Late st Contact Info) Description 06/07/2015 Historical Ophthalmology RST OPH Garrett Maradiaga M.D. [address] [place], [place] [address] Social History Tobacco Use Types Packs/Day Years Used Date Smoking Tobacco: Never Assessed Sex and Gender Information Value Date Recorded Sex Assigned at Female 07/21/2021 3:59 PM ELEMENTARY SCHOOL TEACHER'S AIDE Gender Identity Female 09/12/2020 7:45 PM ELEMENTARY SCHOOL TEACHER'S AIDE Sexual Orientation Straight 09/14/2020 9: 40 AM ELEMENTARY SCHOOL TEACHER'S AIDE documented as of this encounter Progress Notes * Garrett Maradiaga M.D. - 06/07/2015 2:22 PM CST Eye General CHIEF COMPLAINT Convergence insuff and LHT HISTORY OF PRESENT ILLNESS This is a 75 year old female here for Convergence insuff and LHT. No new concerns, pain has decreased to about a 4 or 5 out of 10. Head ache has gone away. Vision is single. JM Left eye pain reducedby half - no rash - no red ness or discaharfg IMPRESSION / REPORT / PLAN #1 Convergence insuff and LHT relatively happy in current prism - except #2 sp L ERM peel sb RI - nothing futher for ret - OCT shows thickened macular #3 glc susp based on c.d and OCT and HVF IOP not acceptable on Latanoprost alone - but will add when #4 Left eye pain but no infection or inflammation - improving and nothing new - celluvisc q2 - see 5 days DIAGNOSIS #1 Convergence insuff and LHT #2 sp L ERM peel #3 glc susp based on c.d and OCT and HVF #4 Left eye pain CDM Reports - EYEGEN Id: [id number] Status: Fnl documented in this encounter Plan of Treatment Not on file documented as of this encounter Visit Diagnoses Not on filedocumented in this encounter Additional Health Concerns Infection Onset Date Last Indicated Resolved Time COVID19 Pending 09/13/2020 09/13/2020 09/13/2020 1 0:20 PM ELEMENTARY SCHOOL TEACHER'S AIDE COVID19 Pending 12/11/2020 12/11/2020 12/12/2020 1 :06 AM CDT Assessment Noted Time PHQ-9 Depression Total Score: 0 07/07/20 12 9:38 AM ELEMENTARY SCHOOL TEACHER'S AIDE documented as of this encounter Care Teams Rn Practitioner Relationship Specialty Start Date End Date Elsewhere, Pcp PCP - General Family Medicine 12/17/20 documented as of this encounter
--- OUTSIDE RECORDS SUMMARY | 2024-02-04 05:55 | XMS_ITS | Encounter Summary ---
Author Organization [facility] Address [address] [place] [address] Care Team Providers Care Power Plant Operations Manager Name Role Phone Elsewhere, Pcp Primary Care Provider Unavailabl e Encounter Details Date Type Department Care Team (Late st Contact Info) Description 01/23/2015 Historical Ophthalmology RST OPH Garrett Maradiaga M.D. [address] [place], [place] [address] Social History Tobacco Use Types Packs/Day Years Used Date Smoking Tobacco: Never Assessed Sex and Gender Information Value Date Recorded Sex Assigned at Female 07/21/2021 3:59 PM HARDWARE ASSEMBLER Gender Identity Female 09/12/2020 7:45 PM HARDWARE ASSEMBLER Sexual Orientation Straight 09/14/2020 9: 40 AM HARDWARE ASSEMBLER documented as of this encounter Progress Notes * Garrett Maradiaga M.D. - 01/23/2015 2:46 PM CDT Eye General CHIEF COMPLAINT Consult and collaboration with the surgeon for macula HISTORY OF PRESENT ILLNESS This is a 75 year old female here today for followup on exotropia and left hypertropia. Patient would like a copy of her glasses prescription. Denies diplopia. Fuzzy vision; distance; both eyes; constant; x 1 year. Will occasionally get a dull ache behind the left eye. - JMH _ didnt change prescript ion in Oct - no diplopia D aor N w prism IMPRESSION / REPORT / PLAN #1 Convergence insuff and LHT happy in current prism - but cut vert by one #2 sp L ERM peel sb RI - no futher for ret #3 glc susp based on c.d therefore get HVF DIAGNOSIS #1 Convergence insuff and LHT #2 sp L ERM peel #3 glc susp based on c.d CDM Reports - EYEGEN Id: [id number] Status: Fnl documented in this encounter Plan of Treatment Not on file documented as of this encounter Visit Diagnoses Not on filedocumented in this encounter Additional Health Concerns Infection Onset Date Last Indicated Resolved Time COVID19 Pending 09/13/2020 09/13/2020 09/13/2020 1 0:20 PM HARDWARE ASSEMBLER COVID19 Pending 12/11/2020 12/11/2020 12/12/2020 1 :06 AM CDT Assessment Noted Time PHQ-9 Depression Total Score: 0 07/07/20 12 9:38 AM HARDWARE ASSEMBLER documented as of this encounter Care Teams Power Plant Operations Manager Relationship Specialty Start Date End Date Elsewhere, Pcp PCP - General Family Medicine 12/17/20 documented as of this encounter
--- OUTSIDE RECORDS SUMMARY | 2024-02-04 05:55 | XMS_ITS | Encounter Summary ---
Author Organization [facility] Address [address] [place] [address]. [place] [address] Care Team Providers Care Reimbursement Consultant Name Role Phone Abhi Weldon MD Primary Care Provider [facility] [place] Unavailable Reason for Visit * Reason Onset Date Comments Panel Management 10/14/2023 Encounter Details Date Type Department Care Team (Late st Contact Info) Description 10/14/2023 [facility] [address] [place] [address] [facility] [address] [place] [address] Panel Management Social History Tobacco Use Types Packs/Day Years Used Date Smoking Tobacco: Former Smokeless Tobacco: Former Quit: 08/02/1961 Alcohol Use Standard Drinks/Week Comments Yes 0 (1 standard drink = 0.6 oz pur e alcohol) glass of wine daily PHQ-2 Answer Date Recorded PHQ-2 Score 0 04/20/2022 Adolescent Education Answer Date Record ed Getting School Help Needed Not on file 05/19 Sex and Gender Information Value Date Recorded Sex Assigned at Not on file Gender Identity Not on file Sexual Orientation Not on file documented as of this encounter Miscellaneous Notes * Telephone Encounter - Alba Walker MA - 11/23/2023 11:18 AM CDT Patient Quality Outreach Type of outreach: Sent letter. Next Steps: Reach out within 90 days via Phone, MyChart, and Letter. Max number of attempts reached: No. Will try again in 90 days if patient still on fail list. Alba Walker MA Chart routed to Care Team. * Telephone Encounter - Alba Walker MA - 10/14/2023 4:00 PM CDT Patient Quality Outreach Patient is due for the following: Physical Annual Wellness Visit Topic Date Due Zoster (Shingles) Vaccine (3 of 3) 05/11/2018 Flu Vaccine (1) 04/02/2023 COVID-19 Vaccine ( season) 2023 Type of outreach: Sent Contour message. Questions for provider review: None Alba Walker MA Chart routed to Care Team. documented in this encounter Plan of Treatment Not on file documented as of this encounter Visit Diagnoses Not on filedocumented in this encounter Care Teams Reimbursement Consultant Relationship Specialty Start Date End Date Abhi Weldon MD [facility] [address] [place] [address] PCP - General Emergency Medicine 11/10/17 Clinic - [place] [address] [place] [address] Assigned PCP 08/26/23 documented as of this encounter
--- OUTSIDE RECORDS SUMMARY | 2024-02-04 05:55 | XMS_ITS | Encounter Summary ---
Author Organization [facility] Address [address] [place] [address]. [place] [address] Care Team Providers Care Shook Splicer Name Role Phone Abhi Weldon MD Primary Care Provider [facility] Kory Burrell [facility] Unavailable Encounter Details Date Type Department Care Team (Late st Contact Info) Description 10/14/2023 [facility] Medical Advice [place] [id number] [place] [address] [facility] [place] Social History Tobacco Use Types Packs/Day Years [...] on file documented as of this encounter Plan of Treatment Not on file documented as of this encounter Visit Diagnoses Not on filedocumented in this encounter Care Teams Shook Splicer Relationship Specialty Start Date End Date Abhi Weldon MD [facility] [address] [place] [address] PCP - General Emergency Medicine 11/10/17 Edd Kory Burrell [facility] [address] [facility] [place] [address] Assigned PCP 08/26/23 documented as of this encounter
--- OUTSIDE RECORDS SUMMARY | 2024-02-04 05:55 | XMS_ITS | Referral Summary ---
Author Organization [facility] Address [address] [facility] [place] [address] Care Team Providers Care Grain Elevator Man Name Role Phone Abhi Weldon MD Primary Care Provider [facility] [place] [facility] Unavailable Allergies No known active allergies Medications Medication Sig Dispensed Refills Start Date End Date Status Multiple Vitamins-Minerals (MULTIVITAL-M PO) Take 1 tablet by mouth daily. Active aspirin 81 MG tablet Take 1 tablet by mouth daily. Active Calcium Carbonate-Vitamin D (CALCIUM + D) 600-200 MG-UNIT per tablet Take 1 tablet by mouth 2 times daily. Active ezetimibe (ZETIA) 10 MG tabletIndications:H yperlipidemia LDL goal <130 Take 1 tablet by mouth daily. 90 tablet prn 08/02/2011 Active pravastatin (PRAVACHOL) 10 MG tabletIndications:H yperlipidemia LDL goal <130 Take 1 tablet by mouth daily. 90 tablet 1 01/11/2012 Active amLODIPine (NORVASC) 5 MG tablet Take 5 mg by mouth 06/01/2016 Active calcium carbonate (OSCAL 500) 1250 (500 Ca) MG TABS tablet Take 1,250 mg by mouth 06/01/2016 Active Cholecalciferol (VITAMIN D3) 1000 units CAPS Take 1,000 Units by mouth 06/01/2016 Active dorzolamide-timolol PF (COSOPT) 22.3-6.8 MG/ML opthalmic solution 06/01/2016 Active latanoprost (XALATAN) 0.005 % ophthalmic solution 1 drop 06/01/2016 Activ e minoxidil (ROGAINE) 2 % external solution 06/01/2016 Active UNABLE TO FIND MEDICATION NAME: Zinc, calcium, magnesium Active UNABLE TO FIND MEDICATION NAME: Cholesterol medication unknown name per patient Active Active Problems Problem Noted Date Diagnosed Date Hip pain, left 11/04/2018 Hyperlipidemia LDL goal <130 01/01/2011 Resolved Problems Problem Noted Date Diagnosed Date Resolved Date Pelvic pain in female 07/13/20192019 Pain of right calf 05/06/2016 6 Pain in joint, lower leg, left 01/25/2015 02/22/2015 Advanced directives, counseling/discussion 07/23/2011 01/17/2024 Overview: Advance Directive Problem List Overview: Name Relationship Phone Primary Health Care Agent Alternative Health Care Agent Patient states has Advance Directive and will bring in a copy to clinic. 07/23/2011 Immunizations Name Administration Dates Next Due COVID-19 MONOVALENT 12+ (Pfizer) 01/10/2021,04/0 09/2020 Influenza (High Dose) 3 guevara nt vaccine 06/07/2019,06/08/2018,04/22/2017,2015,05/02/2015,05/01/2014,05/01/2011 Influenza Vaccine 65+ (FLUAD) 04/23/2020 Influenza, seasonal, injectable, PF 06/01/2013,0 04/21/2012 Pneumo Conj 13-V (2010&after) 03/28/2015 Pneumococcal 23 valent 03/16/2018,06/06/2016, TDAP (Adacel,Boostrix) 06/06/2016,01/05/2012 Zoster recombinant adjuvante d (SHINGRIX) 03/16/2018 Zoster vaccine, live 02/08/2015 Social History Tobacco Use Types Packs/Day Years [...] on file Sexual Orientation Not on file Last Filed Vital Signs Vital Sign Reading Time Taken Comments Blood Pressure 150/68 11/10/2017 6:53 PM CDT Pulse 70 11/10/2017 6:53 PM CDT Temperature 36.7 ??C (98 ??F) 11/10/2017 6:53 PM CDT Respiratory Rate 18 07/23/2011 3:47 PM EMBOSSING CLERK Oxygen Saturation 97% 11/10/2017 6:53 PM CDT Inhaled Oxygen Concentration - - Weight 72.6 kg (160 lb) 11/10/2017 6:53 PM CDT Height 165.1 cm (5' 5) 07/23/2011 3:47 PM EMBOSSING CLERK Body Mass Index 26.63 07/23/2011 3:47 PM EMBOSSING CLERK Plan of Treatment Not on file Procedures Procedure Name Priority Date/Time Associated Diagnosis Comments MA DIAGNOSTIC BILATERAL W/ RUTH Routine 09/26/2020 8:02 AM EMBOSSING CLERK LIPID REFLEX TO DIRECT LDL PANEL Routine 12/14/2011 1:32 PM CDT Hyperlipidemia LDL goal <130 DX BONE DENSITY Routine 07/29/2010 DIAGNOSIS NOT YET DEFINED from Last 3 Months or Most Recently Relevant to Health Maintenance Results * Lipid panel reflex to direct LDL (12/14/2011 1:32 PM CDT) Cholesterol 198 0 - 200 mg/dL [facility] Comment: LDL Cholesterol is the primary guide to therapy. The NCEP recommends further evaluation of: patients with cholesterol greater than 200 mg/dL if additional risk factors are present, cholesterol greater than 240 mg/dL, triglycerides greater than 150 mg/dL, or HDL less than 40 mg/dL. Triglycerides 65 0 - 150 mg/dL [facility] HDL Cholesterol 78 50 - 110 mg/dL [facility] LDL Cholesterol Calculated 107 0 - 129 mg/dL [facility] Comment: LDL Cholesterol is the primary guide to therapy: LDL-cholesterol goal in high risk patients is <100 mg/dL and in very high risk patients is <70 mg/dL. VLDL-Cholesterol 13 0 - 30 mg/dL [facility] Cholesterol/HDL Ratio 2.5 0.0 - 5.0 [facility] Blood specimen (specimen) 12/14/2011 1:32 PM CDT 12/14/2011 1:33 PM CDT Sadie Redman MD LAB - BLOOD ORDER [facility] * Dexa hip/pelvis/spine* (07/29/2010) Anatomical Region Laterality Modality Dexa Other Sadie Redman MD IMG DEXA ORDERABL ES from Last 3 Months or Most Recently Relevant to Health Maintenance Care Teams Grain Elevator Man Relationship Specialty Start Date End Date Abhi Weldon MD [facility] [address] [place] [address] PCP - General Emergency Medicine 11/10/17 [facility] - [place] [facility] [id number] [place] [address] [place] [address] Assigned PCP 08/26/23
--- OUTSIDE RECORDS SUMMARY | 2024-02-04 05:55 | XMS_ITS | Encounter Summary ---
Author Organization [facility] Address [address] [place] [address] Care Team Providers Care Medical Lab Scientist Name Role Phone Elsewhere, Pcp Primary Care Provider Unavailabl e Encounter Details Date Type Department Care Team (Late st Contact Info) Description 03/04/2015 Historical Ophthalmology RST OPH Garrett Maradiaga M.D. [address] [place], [place] [address] Social History Tobacco Use Types Packs/Day Years Used Date Smoking Tobacco: Never Assessed Sex and Gender Information Value Date Recorded Sex Assigned at Female 07/21/2021 3:59 PM RING ATTACHER Gender Identity Female 09/12/2020 7:45 PM RING ATTACHER Sexual Orientation Straight 09/14/2020 9: 40 AM RING ATTACHER documented as of this encounter Progress Notes * Garrett Maradiaga M.D. - 03/04/2015 1:34 PM CDT Eye General CHIEF COMPLAINT Convergence insuff and LHT HISTORY OF PRESENT ILLNESS This is a 75 year old female here today for a follow up of Convergence insuff and LHT. Blurred vision; both eyes; x 1 month; constantly; gradually worsening. Flashes of light; unsure which eye; experiences dull headache at beginning; flashes last for about 1 hour. Denies ocular pain, floaters, and diplopia. IMPRESSION / REPORT / PLAN #1 Convergence insuff and LHT relatively happy in current prism #2 sp L ERM peel sb RI - nothing futher for ret - OCT shows thickened macular #3 glc susp based on c.d and OCT and HVF The following tests have been completed and need interpretation. OCT nerve - suggestive of glc start latanoprost L qhs - explain iris changes and lashes - target pressure 10 - see 2 mo see 2 months DIAGNOSIS #1 Convergence insuff and LHT #2 sp L ERM peel #3 glc susp based on c.d and OCT and HVF CDM Reports - EYEGEN Id: [id number] Status: Fnl documented in this encounter Plan of Treatment Not on file documented as of this encounter Visit Diagnoses Not on filedocumented in this encounter Additional Health Concerns Infection Onset Date Last Indicated Resolved Time COVID19 Pending 09/13/2020 09/13/2020 09/13/2020 1 0:20 PM RING ATTACHER COVID19 Pending 12/11/2020 12/11/2020 12/12/2020 1 :06 AM CDT Assessment Noted Time PHQ-9 Depression Total Score: 0 07/07/20 12 9:38 AM RING ATTACHER documented as of this encounter Care Teams Medical Lab Scientist Relationship Specialty Start Date End Date Elsewhere, Pcp PCP - General Family Medicine 12/17/20 documented as of this encounter
--- OUTSIDE RECORDS SUMMARY | 2024-02-04 05:55 | XMS_ITS | Encounter Summary ---
Author Organization [facility] Address [address] [place] [address] Care Team Providers Care Prepleater Name Role Phone Elsewhere, Pcp Primary Care Provider Unavailabl e Encounter Details Date Type Department Care Team (Late st Contact Info) Description 03/19/2011 Historical Ophthalmology RST OPH Garrett Maradiaga M.D. [address] [place], [place] [address] Social History Tobacco Use Types Packs/Day Years Used Date Smoking Tobacco: Never Assessed Sex and Gender Information Value Date Recorded Sex Assigned at Female 07/21/2021 3:59 PM SHREDDER/GRANULATOR OPERATOR Gender Identity Female 09/12/2020 7:45 PM SHREDDER/GRANULATOR OPERATOR Sexual Orientation Straight 09/14/2020 9: 40 AM SHREDDER/GRANULATOR OPERATOR documented as of this encounter Progress Notes * Garrett Maradiaga M.D. - 03/19/2011 1:08 PM CDT Eye General CHIEF COMPLAINT Double vision in the right eye. HISTORY OF PRESENT ILLNESS Double vision; stared after cataract surgery in 2001; images vertical and over lapping; dissipates when closes the left eye. Patient have Fresnel prism on both lenses - for 1 year. Floater; left eye;on and off; x 8 years; mild and remains unchanged. Patient denies ocular pain or flashes of lights.[facility] - IMPRESSION / REPORT / PLAN #1 exotropia main sympt is near visual confusion options - L fresnel eg 12 BI - with view to surg in fall - warn that supression may preclude recovery of depth other option ground in prism - start w 12 BI L Fresnel - see 4-6 weeks to eval and consider ground in vs surg DIAGNOSIS #1 exotropia CDM Reports - EYEGEN Id: [id number] Status: Fnl documented in this encounter Plan of Treatment Not on file documented as of this encounter Visit Diagnoses Not on filedocumented in this encounter Additional Health Concerns Infection Onset Date Last Indicated Resolved Time COVID19 Pending 09/13/2020 09/13/2020 09/13/2020 1 0:20 PM SHREDDER/GRANULATOR OPERATOR COVID19 Pending 12/11/2020 12/11/2020 12/12/2020 1 :06 AM CDT documented as of this encounter Care Teams Prepleater Relationship Specialty Start Date End Date Elsewhere, Pcp PCP - General Family Medicine 12/17/20 documented as of this encounter
--- OUTSIDE RECORDS SUMMARY | 2024-02-04 05:55 | XMS_ITS | Encounter Summary ---
Author Organization [facility] Address [address] [place] [address] Care Team Providers Care Director Of Events Name Role Phone Elsewhere, Pcp Primary Care Provider Unavailabl e Encounter Details Date Type Department Care Team (Late st Contact Info) Description 04/17/2011 Historical Ophthalmology RST OPH Garrett Maradiaga M.D. [address] [place], [place] [address] Social History Tobacco Use Types Packs/Day Years Used Date Smoking Tobacco: Never Assessed Sex and Gender Information Value Date Recorded Sex Assigned at Female 07/21/2021 3:59 PM HEDIS MANAGER Gender Identity Female 09/12/2020 7:45 PM HEDIS MANAGER Sexual Orientation Straight 09/14/2020 9: 40 AM HEDIS MANAGER documented as of this encounter Progress Notes * Garrett Maradiaga M.D. - 04/17/2011 2:05 PM CDT Eye General CHIEF COMPLAINT exotropia follow up HISTORY OF PRESENT ILLNESS Binocular vertical diplopia; both eyes; x 1 month; constantly; symptoms are moderate, occur primarily when reading. Distance is not double, but is distorted with fresnel prism on left lens. Depth perception still poor. The angle of the book she is reading makes the distance between the two images change. SRM: Wearing 12 BI on left lens since last visit. No double at all at distance with prism, but still has double for reading - described as sl vertical line going through what she's reading. Cannot read anything with left eye as so distorted through fresnel. IMPRESSION / REPORT / PLAN #1 exotropia main sympt is near visual confusion need to increase to 15 - watch orient - to avoid vert (tho I dont think this was reason for failure- due to vert amps) see 4-6 weeks to eval and consider ground in vs surg - expalin getting too large for reasonable prism DIAGNOSIS #1 exotropia CDM Reports - EYEGEN Id: [id number] Status: Fnl documented in this encounter Plan of Treatment Not on file documented as of this encounter Visit Diagnoses Not on filedocumented in this encounter Additional Health Concerns Infection Onset Date Last Indicated Resolved Time COVID19 Pending 09/13/2020 09/13/2020 09/13/2020 1 0:20 PM HEDIS MANAGER COVID19 Pending 12/11/2020 12/11/2020 12/12/2020 1 :06 AM CDT documented as of this encounter Care Teams Director Of Events Relationship Specialty Start Date End Date Elsewhere, Pcp PCP - General Family Medicine 12/17/20 documented as of this encounter
--- OUTSIDE RECORDS SUMMARY | 2024-02-04 05:55 | XMS_ITS | Encounter Summary ---
Author Organization [facility] Address [address] [place] [address] Care Team Providers Care Sales Specialist Name Role Phone Elsewhere, Pcp Primary Care Provider Unavailabl e Encounter Details Date Type Department Care Team (Late st Contact Info) Description 06/03/2015 Historical Ophthalmology RST OPH Garrett Maradiaga M.D. [address], [place] [address] Social History Tobacco Use Types Packs/Day Years Used Date Smoking Tobacco: Never Assessed Sex and Gender Information Value Date Recorded Sex Assigned at Female 07/21/2021 3:59 PM PET CARE ASSISTANT Gender Identity Female 09/12/2020 7:45 PM PET CARE ASSISTANT Sexual Orientation Straight 09/14/2020 9: 40 AM PET CARE ASSISTANT documented as of this encounter Progress Notes * Garrett Maradiaga M.D. - 06/03/2015 1:05 PM CST Eye General CHIEF COMPLAINT pain left side HISTORY OF PRESENT ILLNESS URGENT visit today - 75 year old here with a sore left eyeball. Noticed just this morning. Eye is sore to the touch. When she closes her eye and doesn't move her eye she has no pain. If she touches her eye, or moves her eye around she has pain 6/10. Pain from cheek to behind the nose- respects midline- only on the left side. Also on the left side of her heart wall she has pain or a heaviness. Both of these symptoms started about the same time. She has had a shingles vaccine 2 mo ago . Low gradeheadache on the left side as well. 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 #3 glc susp based on c.d and OCT and HVF #4 Left eye pain CDM Reports - EYEGEN Id: [id number] Status: Fnl documented in this encounter Plan of Treatment Not on file documented as of this encounter Visit Diagnoses Not on filedocumented in this encounter Additional Health Concerns Infection Onset Date Last Indicated Resolved Time COVID19 Pending 09/13/2020 09/13/2020 09/13/2020 1 0:20 PM PET CARE ASSISTANT COVID19 Pending 12/11/2020 12/11/2020 12/12/2020 1 :06 AM CDT Assessment Noted Time PHQ-9 Depression Total Score: 0 07/07/20 12 9:38 AM PET CARE ASSISTANT documented as of this encounter Care Teams Sales Specialist Relationship Specialty Start Date End Date Elsewhere, Pcp PCP - General Family Medicine 12/17/20 documented as of this encounter
--- OUTSIDE RECORDS SUMMARY | 2024-02-04 05:55 | XMS_ITS | Encounter Summary ---
Author Organization [place] Address [address] [place] [address]. [place] [address] Care Team Providers Care Cake Press Operator Helper Name Role Phone Sadie Redman MD Primary Care Provider [phone] Abhi Weldon MD Primary Care Provider [facility] Unavailable Encounter Details Date Type Department Care Team (Late st Contact Info) Description 10/29/2011 MyC Medical Advice Initial Department [facility] Social History Tobacco Use Types Packs/Day Years Used Date Smoking Tobacco: Former Smokeless Tobacco: Former Quit: 08/02/1961 Alcohol Use Standard Drinks/Week Comments Yes 0 (1 standard drink = 0.6 oz pur e alcohol) glass of wine daily Sex and Gender Information Value Date Recorded Sex Assigned at Not on file Gender Identity Not on file Sexual Orientation Not on file documented as of this encounter Plan of Treatment Not on file documented as of this encounter Visit Diagnoses Not on filedocumented in this encounter Care Teams Cake Press Operator Helper Relationship Specialty [place] [address] [place] [address] PCP - General Internal Medicine 12/08/10 11/09/17 Abhi Weldon MD [facility] [address] [place] [address] PCP - General Emergency Medicine 11/10/17 Clinic - [facility] [address] [facility] [place] [address] Assigned PCP 08/26/23 documented as of this encounter
--- OUTSIDE RECORDS SUMMARY | 2024-02-04 05:55 | XMS_ITS | Encounter Summary ---
Author Organization [place] Address [facility] [place] [address] Care Team Providers Care Digital Sales Representative Name Role Phone Sadie Redman MD Primary Care Provider [phone] Abhi Weldon MD Primary Care Provider Clinic - [facility] Unavailable Reason for Visit * Reason Onset Date Comments Other 02/26/2011 Preventive Healt h Screening Encounter Details Date Type Department Care Team (Late st Contact Info) Description 02/26/2011 Telephone [facility] [address] [place] [address] [place] [address] [place] [address] Other (Preventive Health Screening) Social History Tobacco Use Types Packs/Day Years [...] encounter Miscellaneous Notes * Telephone Encounter - Dianna Benítez - 02/26/2011 5:47 PM CDT Patient received letter indicating they are due for: Colonoscopy Screening. Patient indicates they had Colonoscopy done in [place] by Dr. Golden (ph. [phone]) in October 2008 and reports the results of the exam were normal. Routing to Clinic Animal Rides Manager to update medical record. Thank you, Dianna Angel documented in this encounter Plan of Treatment Not on file documented as of this encounter Visit Diagnoses Not on filedocumented in this encounter Care Teams Digital Sales Representative Relationship Specialty [place] [address] [place] [address] PCP - General Internal Medicine 12/08/10 11/09/17 Abhi Weldon MD [facility] [address] [place] [address] PCP - General Emergency Medicine 11/10/17 [facility] - [address] [place] [address] Assigned PCP 08/26/23 documented as of this encounter
--- OUTSIDE RECORDS SUMMARY | 2024-02-04 05:55 | XMS_ITS | Encounter Summary ---
Author Organization [facility] Address [address] [place] [address] Care Team Providers Care Airset Molder Name Role Phone Elsewhere, Pcp Primary Care Provider Unavailabl e Encounter Details Date Type Department Care Team (Late st Contact Info) Description 10/30/2015 Historical Ophthalmology RST OPH Garrett Maradiaga M.D. [address], [place] [address] Social History Tobacco Use Types Packs/Day Years Used Date Smoking Tobacco: Never Assessed Sex and Gender Information Value Date Recorded Sex Assigned at Female 07/21/2021 3:59 PM CALL WORKER Gender Identity Female 09/12/2020 7:45 PM CALL WORKER Sexual Orientation Straight 09/14/2020 9: 40 AM CALL WORKER documented as of this encounter Progress Notes * Garrett Maradiaga M.D. - 10/30/2015 2:21 PM CDT Eye General CHIEF COMPLAINT Follow up HISTORY OF PRESENT ILLNESS 75 year old female here for follow up on Convergence insufficiency and LHT. Has Fresnel over left lens, single vision as long as glasses are on. She is never without her glasses on during waking hours. Patient denies ocular pain. in 06/2015- trialed additional 6BI left to help with ache in left eye- improved- has been in total of 18BI and 3BDL since. - no problem w added prism IMPRESSION / REPORT / PLAN #1 Convergence insuff and LHT ache in L eye improved / resolved w additional 6 BI left - therefore offer ground in - but did [place] - amps as so good worth trying without #2 sp L ERM peel sb RI - nothing futher for ret - OCT shows thickened macular #3 glc susp Left eye based on c.d and OCT and HVF IOP ? 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 #3 glc susp Left eye based on c.d and OCT and HVF #4 Left eye pain CDM Reports - EYEGEN Id: [id number] Status: Fnl documented in this encounter Plan of Treatment Not on file documented as of this encounter Visit Diagnoses Not on filedocumented in this encounter Additional Health Concerns Infection Onset Date Last Indicated Resolved Time COVID19 Pending 09/13/2020 09/13/2020 09/13/2020 1 0:20 PM CALL WORKER COVID19 Pending 12/11/2020 12/11/2020 12/12/2020 1 :06 AM CDT Assessment Noted Time PHQ-9 Depression Total Score: 0 07/07/20 12 9:38 AM CALL WORKER documented as of this encounter Care Teams Airset Molder Relationship Specialty Start Date End Date Elsewhere, Pcp PCP - General Family Medicine 12/17/20 documented as of this encounter
--- OUTSIDE RECORDS SUMMARY | 2024-02-04 05:55 | XMS_ITS | Encounter Summary ---
Author Organization [facility] Address [address] [place] [address] Care Team Providers Care Buccaro Name Role Phone Elsewhere, Pcp Primary Care Provider Unavailabl e Encounter Details Date Type Department Care Team (Late st Contact Info) Description 01/23/2015 Historical Ophthalmology RST OPH Jd Wong M.D. [address] [place] [address] Social History Tobacco Use Types Packs/Day Years Used Date Smoking Tobacco: Never Assessed Sex and Gender Information Value Date Recorded Sex Assigned at Female 07/21/2021 3:[address] [employer] Gender Identity Female 09/12/2020 7:[address] [employer] Sexual Orientation Straight 09/14/2020 9: [address] [employer] documented as of this encounter Progress Notes * Jd Wong M.D. - 01/23/2015 5:21 PM CDT Eye General CHIEF COMPLAINT Consult [...] a dull ache behind the left eye. Copied from Dr. Maradiaga' CDM. IMPRESSION / REPORT / PLAN OCT shows no evidence of recurrent ERM. Thinning of NFL, OS. IS/OS junction intact and uniform. #1 S/P ERM removal no evidence of recurrence no pucker. intact photoreceptor cell layer. Overall impression: Based upon OCT, no explanation for reduced visual acuity. Myopic fundus changes, no myopic macular degeneration c/d assymetry. Cannot rule out glaucoma vs. post-surgical changes Plan: I do not recommend surgery at this time. recommend 24-2 visual field; NFL OCT. rule-out paracentral scotoma (may need 10-2 as well). DIAGNOSIS #1 S/P ERM removal CDM Reports - EYEGEN Id: [id number] Status: Fnl documented in this encounter Plan of Treatment Not on file documented as of this encounter Visit Diagnoses Not on filedocumented in this encounter Additional Health Concerns Infection Onset Date Last Indicated Resolved Time COVID19 Pending 09/13/2020 09/13/2020 09/13/2020 1 0:[address] [employer] COVID19 Pending 12/11/2020 12/11/2020 12/12/2020 1 :06 AM CDT Assessment Noted Time PHQ-9 Depression Total Score: 0 07/07/20 12 9:[address] [employer] documented as of this encounter Care Teams Buccaro Relationship Specialty Start Date End Date Elsewhere, Pcp PCP - General Family Medicine 12/17/20 documented as of this encounter
--- OUTSIDE RECORDS SUMMARY | 2024-02-04 05:55 | XMS_ITS | Encounter Summary ---
Author Organization [facility] Address [address] [place] [address] Care Team Providers Care Valance Cutter Name Role Phone Elsewhere, Pcp Primary Care Provider Unavailabl e Encounter Details Date Type Department Care Team (Late st Contact Info) Description 06/20/2015 Historical Ophthalmology RST OPH Garrett Maradiaga M.D. [address] [place], [place] [address] Social History Tobacco Use Types Packs/Day Years Used Date Smoking Tobacco: Never Assessed Sex and Gender Information Value Date Recorded Sex Assigned at Female 07/21/2021 3:59 PM PANEL LAY UP WORKER Gender Identity Female 09/12/2020 7:45 PM PANEL LAY UP WORKER Sexual Orientation Straight 09/14/2020 9: 40 AM PANEL LAY UP WORKER documented as of this encounter Progress Notes * Garrett Maradiaga M.D. - 06/20/2015 12:33 PM CST Eye General CHIEF COMPLAINT follow up pain HISTORY OF PRESENT ILLNESS This is a 75 year old female here today for followup on convergence insuff. and LHT. Trial of additional 6 BI as Fresnel over ground in priism- Pain is now completly gone- slowly decreased since lastexam. Also see better and read better Continues to use artificial tears atleast 2x day- often more. Denies diplopia dist and near. 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 #3 glc susp Left eye based on c.d and OCT and HVF #4 Left eye pain CDM Reports - EYEGEN Id: [id number] Status: Fnl documented in this encounter Plan of Treatment Not on file documented as of this encounter Visit Diagnoses Not on filedocumented in this encounter Additional Health Concerns Infection Onset Date Last Indicated Resolved Time COVID19 Pending 09/13/2020 09/13/2020 09/13/2020 1 0:20 PM PANEL LAY UP WORKER COVID19 Pending 12/11/2020 12/11/2020 12/12/2020 1 :06 AM CDT Assessment Noted Time PHQ-9 Depression Total Score: 0 07/07/20 12 9:38 AM PANEL LAY UP WORKER documented as of this encounter Care Teams Valance Cutter Relationship Specialty Start Date End Date Elsewhere, Pcp PCP - General Family Medicine 12/17/20 documented as of this encounter
--- OUTSIDE RECORDS SUMMARY | 2024-02-04 05:55 | XMS_ITS | Data Portability ---
Author Organization [facility], [facility] Address [address] [place] [address] Care Team Providers Care Stunner And Shackler Name Role Phone POPPY BARNARD Primary Care Provider Assessment Encounter Date Assessment Date Assessment LastModified by Organization Details LastModified Time 06/09/2022 06/09/2022 82 year old female with nocturia. Not available 06/09/2022 09:55:29 09/01/2022 09/01/2022 82 year old female with nocturnal polyuria. Not available 09/01/2022 10:47:02 Plan of Treatment Reminders Order Date Submit Date Provider Last Modified By Organization Details Last Modified Time Details Appointments None recorded. Lab urinalysis, dipstick 2019 020 [facility], [address] [facility], [place], [address], 0 10:44:37 Referral None recorded. Procedures None recorded. Surgeries None recorded. Imaging None recorded. Medication Orders desmopressi n 10 mcg/spray (0.1 mL) nasal spray (non-refrig erated) 2022 023 [id number], [address], [place], [address], 3 10:46:59 Patient TargetsNo targets recorded. Patient Instructions Encounter Date Encounter Id Patient Instructions Last Modified By Organization Details Last Modified Time 06/09/2022 [id number] Nocturia: We discussed potential etiologies including the followin. Behavioral 2. Overactive bladder 3. Polyuria related to untreated sleep apnea 4. Primary nocturnal polyuria She denies symptoms of sleep apnea. I will have her complete a voiding diary and return with this. We discussed desmopressin supplementation if she has primary nocturnal polyuria. If she does not, we will consider sending her for pelvic floor physical therapy given her lack of improvement with medical therapy. Not available 06/09/2022 09:56:53 09/01/2022 [id number] Nocturnal Polyur ia: She brought several voiding diaries to today's visit which confirms that she has nocturnal polyuria. We discussed starting desmopressin to address this. We discussed risks of the medication including hyponatremia requiring electrolyte monitoring. She does have some concerns about cost. We will try to see if this is affordable for her to receive. If she is able to start, then we will check a set of serum electrolytes in 1 week after starting. Not available 09/01/2022 10:46:55 Reason for Referral None Reported. Results Created Date Observation Date Name Description Value Unit Range Abnormal Flag LastModifiedBy Organization Detail LastModifiedTime 07/01/20 20 07/01/2020 urina lysis , dipst ick color -advantus YELLOW yellow Not Available [facility] [address], [address], 07/01/2020 10:25:48 07/01/20 20 07/01/2020 urina lysis , dipst ick appearance -advantus CLEAR clear Not Available [facility] [address] [facility] [address], [place], [address], 07/01/2020 10:25:48 07/01/20 20 07/01/2020 urina lysis , dipst ick glucose -advantus NEGATI VE mg/dL negati ve Not Available [facility] [address] [facility] [address], [place], [address], 07/01/2020 10:25:48 07/01/20 20 07/01/2020 urina lysis , dipst ick bilirubin -advantus NEGATI VE negati ve Not Available [facility] [address] [facility] [address], [place], [address], 07/01/2020 10:25:48 07/01/20 20 07/01/2020 urina lysis , dipst ick ketones -advantus NEGATI VE mg/dL negati ve Not Available [facility] [address] [place] [address] [address], [place], [address], 07/01/2020 10:25:48 07/01/20 20 07/01/2020 urina lysis , dipst ick sp. gravity -advantus 1.020 1.010- 1.025 Not Available [facility] [address] [place] [address], [place], [address], 07/01/2020 10:25:48 07/01/20 20 07/01/2020 urina lysis , dipst ick pH -advantus 7.0 5.0-8. 0 Not Available [facility] [address] [place] [address], [place], [address], 07/01/2020 10:25:48 07/01/20 20 07/01/2020 urina lysis , dipst ick protein -advantus 30 mg/dL negati ve abnormal Not Available [facility] [address] [place] [address], [place], [address], 07/01/2020 10:25:48 07/01/20 20 07/01/2020 urina lysis , dipst ick urobilinogen -advantus 0.2 normal Not Available [facility] [address] [place] [address], [place], [address], 07/01/2020 10:25:48 07/01/20 20 07/01/2020 urina lysis , dipst ick nitrites -advantus NEGATI VE negati ve Not Available [facility] [address] [place] [address], [place], [address], 07/01/2020 10:25:48 07/01/20 20 07/01/2020 urina lysis , dipst ick blood -advantus TRACE- INTACT negati ve abnormal Not Available [facility] [address] [place] [address], [place], [address], 07/01/2020 10:25:48 07/01/20 20 07/01/2020 urina lysis , dipst ick leukocytes -advantus TRACE negati ve abnormal Not Available [facility] [address] [place] [address], [place], [address], 07/01/2020 10:25:48 07/01/20 20 07/01/2020 urina lysis , dipst ick performed by TAYO Ty Not Available [facility] [address] [place] [address], [place], [address], 07/01/2020 10:25:48 07/01/20 20 07/01/2020 urina lysis , dipst ick total urine volume (mL) 10CC /mL Not Available [facility] [address] [place] [address], [place], [address], 07/01/2020 10:25:48 07/01/20 20 07/01/2020 urina lysis , micro scopi c U-WBC 2 - 5 [hpf] 0 - 2 abnormal Not Available [facility] [address] [place] [address], [place], [address], 07/01/2020 10:25:50 07/01/20 20 07/01/2020 urina lysis , micro scopi c U-RBC 0 - 2 [hpf] 0 - 2 Not Available [facility] [address] [place] [address], [place], [address], 07/01/2020 10:25:50 07/01/20 20 07/01/2020 urina lysis , micro scopi c bacteria SMALL [hpf] negati ve abnormal Not Available [facility] [address] [place] [address] [address], [place], [address], 07/01/2020 10:25:50 07/01/20 20 07/01/2020 urina lysis , micro scopi c squamous epi SMALL /lpf negati ve,sma ll Not Available [facility] [address] [facility] [address], [place], [address], 07/01/2020 10:25:50 07/01/20 20 07/01/2020 urina lysis , micro scopi c mucus PRESEN T [hpf] not presen t abnormal Not Available [facility] [address] [place] [address], [place], [address], 07/01/2020 10:25:50 07/01/20 20 07/01/2020 urina lysis , micro scopi c hyaline cast 0 - 5 [hpf] 0 - 5 Not Available [facility] [place] [facility] [address] [place] [address], [place], [address], 07/01/2020 10:25:50 07/01/20 20 07/01/2020 urina lysis , micro scopi c yeast SMALL /hpf negati ve abnormal Not Available [facility] [address] [place] [address], [place], [address], 07/01/2020 10:25:50 07/01/20 20 07/01/2020 cultu re, urine final report MICROB IOLOGY RESULT S Not Available [facility] [address] [place] [address], [place], [address], 07/03/2020 17:24:27 07/30/20 20 07/30/2020 urina lysis , dipst ick color -advantus YELLOW yellow Not Available [facility] [address] [place] [address], [place], [address], 07/30/2020 10:44:37 07/30/20 20 07/30/2020 urina lysis , dipst ick appearance -advantus CLEAR clear Not Available [facility] [address] [place] [address], [place], [address], 07/30/2020 10:44:37 07/30/20 20 07/30/2020 urina lysis , dipst ick glucose -advantus NEGATI VE mg/dL negati ve Not Available [facility] [address] [facility] [address], [place], [address], 07/30/2020 10:44:37 07/30/20 20 07/30/2020 urina lysis , dipst ick bilirubin -advantus NEGATI VE negati ve Not Available [facility] [address] [place] [address], [place], [address], 07/30/2020 10:44:37 07/30/20 20 07/30/2020 urina lysis , dipst ick ketones -advantus NEGATI VE mg/dL negati ve Not Available [facility] [address] [place] [address], [place], [address], 07/30/2020 10:44:37 07/30/20 20 07/30/2020 urina lysis , dipst ick sp. gravity -advantus 1.010 1.010- 1.025 Not Available [facility] [address] [place] [address], [place], [address], 07/30/2020 10:44:37 07/30/20 20 07/30/2020 urina lysis , dipst ick pH -advantus 7.5 5.0-8. 0 Not Available [facility] [address] [place] [address], [place], [address], 07/30/2020 10:44:37 07/30/20 20 07/30/2020 urina lysis , dipst ick protein -advantus TRACE mg/dL negati ve abnormal Not Available [facility] [address] [place] [address], [place], [address], 07/30/2020 10:44:37 07/30/20 20 07/30/2020 urina lysis , dipst ick urobilinogen -advantus 0.2 normal Not Available [facility] [address] [place] [address], [place], [address], 07/30/2020 10:44:37 07/30/20 20 07/30/2020 urina lysis , dipst ick nitrites -advantus NEGATI VE negati ve Not Available [facility] [address] [place] [address], [place], [address], 07/30/2020 10:44:37 07/30/20 20 07/30/2020 urina lysis , dipst ick blood -advantus TRACE- INTACT negati ve abnormal Not Available [facility] [address] [place] [address], [place], [address], 07/30/2020 10:44:37 07/30/20 20 07/30/2020 urina lysis , dipst ick leukocytes -advantus TRACE negati ve abnormal Not Available [facility] [address] [place] [address], [place], [address], 07/30/2020 10:44:37 07/30/20 20 07/30/2020 urina lysis , dipst ick performed by ALANA Garrett Not Available [facility] [address] [place] [address], [place], [address], 07/30/2020 10:44:37 07/30/20 20 07/30/2020 urina lysis , dipst ick total urine volume (mL) 5CC /mL Not Available [facility] [address] [place] [address], [place], [address], 07/30/2020 10:44:37 07/30/20 20 07/30/2020 urina lysis , micro scopi c U-WBC 0 - 2 [hpf] 0 - 2 Not Available [facility] [place] [facility] [address] [place] [address], [place], [address], 07/30/2020 10:44:42 07/30/20 20 07/30/2020 urina lysis , micro scopi c U-RBC 0 - 2 [hpf] 0 - 2 Not Available [facility] [address] [place] [address], [place], [address], 07/30/2020 10:44:42 07/30/20 20 07/30/2020 urina lysis , micro scopi c bacteria SMALL [hpf] negati ve abnormal Not Available [facility] [address] [place] [address], [place], [address], 07/30/2020 10:44:42 07/30/20 20 07/30/2020 urina lysis , micro scopi c squamous epi SMALL /lpf negati ve,sma ll Not Available [facility] [address] [place] [address], [place], [address], 07/30/2020 10:44:42 07/30/20 20 07/30/2020 urina lysis , micro scopi c hyaline cast 0 - 5 [hpf] 0 - 5 Not Available [facility] [address] [place] [address], [place], [address], 07/30/2020 10:44:42 01/15/20 21 01/14/2021 urina lysis , dipst ick color -advantus YELLOW yellow Not Available [facility] [address] [place] [address], [place], [address], 01/14/2021 09:40:41 01/15/20 21 01/14/2021 urina lysis , dipst ick appearance -advantus CLEAR clear Not Available [facility] [address] [place] [address], [place], [address], 01/14/2021 09:40:41 01/15/20 21 01/14/2021 urina lysis , dipst ick glucose -advantus NEGATI VE mg/dL negati ve Not Available [facility] [address] [place] [address], [place], [address], 01/14/2021 09:40:41 01/15/20 21 01/14/2021 urina lysis , dipst ick bilirubin -advantus NEGATI VE negati ve Not Available [facility] [address] [place] [address], [place], [address], 01/14/2021 09:40:41 01/15/20 21 01/14/2021 urina lysis , dipst ick ketones -advantus NEGATI VE mg/dL negati ve Not Available [facility] [address] [place] [address], [place], [address], 01/14/2021 09:40:41 01/15/20 21 01/14/2021 urina lysis , dipst ick sp. gravity -advantus 1.010 1.010- 1.025 Not Available [facility] [address] [place] [address], [place], [address], 01/14/2021 09:40:41 01/15/20 21 01/14/2021 urina lysis , dipst ick pH -advantus 7.0 5.0-8. 0 Not Available [facility] [address] [place] [address], [place], [address], 01/14/2021 09:40:41 01/15/20 21 01/14/2021 urina lysis , dipst ick protein -advantus NEGATI VE mg/dL negati ve Not Available [facility] [address] [place] [address], [place], [address], 01/14/2021 09:40:41 01/15/20 21 01/14/2021 urina lysis , dipst ick urobilinogen -advantus 0.2 normal Not Available [facility] [address] [place] [address], [place], [address], 01/14/2021 09:40:41 01/15/20 21 01/14/2021 urina lysis , dipst ick nitrites -advantus NEGATI VE negati ve Not Available [facility] [address] [place] [address], [place], [address], 01/14/2021 09:40:41 01/15/20 21 01/14/2021 urina lysis , dipst ick blood -advantus NEGATI VE negati ve Not Available [facility] [address] [facility] [address], [place], [address], 01/14/2021 09:40:41 01/15/20 21 01/14/2021 urina lysis , dipst ick leukocytes -advantus TRACE negati ve abnormal Not Available [facility] [address] [place] [address], [place], [address], 01/14/2021 09:40:41 01/15/20 21 01/14/2021 urina lysis , dipst ick performed by ALANA Garrett Not Available [facility] [address] [place] [address], [place], [address], 01/14/2021 09:40:41 01/15/20 21 01/14/2021 urina lysis , dipst ick total urine volume (mL) 10 /mL Not Available [facility] [address] [place] [address], [place], [address], 01/14/2021 09:40:41 01/15/20 21 01/14/2021 urina lysis , micro scopi c U-WBC 0 - 2 [hpf] 0 - 2 Not Available [facility] [address] [place] [address], [place], [address], 01/14/2021 09:40:45 01/15/20 21 01/14/2021 urina lysis , micro scopi c U-RBC 0 - 2 [hpf] 0 - 2 Not Available [facility] [address] [place] [address], [place], [address], 01/14/2021 09:40:45 01/15/20 21 01/14/2021 urina lysis , micro scopi c bacteria SMALL [hpf] negati ve abnormal Not Available [facility] [address] [place] [address], [place], [address], 01/14/2021 09:40:45 01/15/20 21 01/14/2021 urina lysis , micro scopi c squamous epi SMALL /lpf negati ve,sma ll Not Available [facility] [address] [facility] [address], [place], [address], 01/14/2021 09:40:45 Result Notes None recorded. Procedures Surgical History Date Name Laterality Status Provider Name and Address Organization Details Recorded Time 07/30/20 20 Bladder Scan completed Navya east [facility] 07/30/2020 10:20:38 07/01/20 20 Cystoscopy- female completed Trav Oshea MD [address] [facility], [place], [address], [facility] 07/01/2020 10:48:25 08/02/19 14 Diagnostic colonoscopy completed Not Available Health Note 08/30/2022 11:54:51 delivery completed Not Available Health Note 08/30/2022 11:54:51 Laparoscopic cholecystectomy completed Not Available Health Note 08/30/2022 11:54:51 Total hysterectomy completed Not Available Health Note 08/30/2022 11:54:52 Imaging Results None recorded. Procedure Notes None recorded. Medical Equipment None Reported. Allergies No known drug allergies Medications Name Sig Start Date Stop Date Status Note LastModified by Organization Details LastModified Time latanopro st 0.005 % eye drops INSTILL ONE DROP IN THE LEFT EYE EVERY EVENING . active Not Available Not Available No t Available valacyclo vir 1 gram tablet TAKE ONE TABLET BY MOUTH THREE TIMES A DAY 06/09 completed HN: Patient reports no longer taking Not Available Not Available Not Available prednison e 20 mg tablet TAKE TWO TABLETS BY MOUTH EVERY DAY FOR 4 DAYS THEN ONE TABLET EVERY DAY FOR 3 DAYS THEN ONE TABLET EVERY DAY DIRECTED 06/09 completed HN: Patient reports no longer taking Not Available Not Available Not Available desmopres sin 10 mcg/spray (0.1 mL) nasal spray (non-refr igerated) Fred 0.1 mL twice a day by intranas al route. 2022 active Not Available Not Available Not Avai lable amlodipin e 5 mg tablet TAKE ONE TABLET BY MOUTH EVERY DAY active Not Available Not Available No t Available prednisol one acetate 1 % eye drops,lloyd pension INSTILL ONE DROP IN THE RIGHT EYE FOUR TIMES A DAY FOR TWO DAYS , TWO TIMES A DAY FOR 2 DAYS , ONCE DAILY FOR 2 DAYS . active HN: Patient reports no longer taking HN: Patient reports no longer taking Not Available Not Available Not Available cephalexi n 500 mg capsule TAKE ONE CAPSULE BY MOUTH TWICE A DAY FOR 7 DAYS 06/09 completed Not Available Not Available Not Available oxybutyni n chloride ER 5 mg tablet,ex tended release 24 hr TAKE ONE TABLET BY MOUTH EVERY DAY 06/09 completed HN: Patient reports no longer taking Not Available Not Available Not Available dorzolami de 22.3 mg-timolo l 6.8 mg/mL eye drops USE 1 DROP IN LEFT EYE TWICE A DAY active Not Available Not Available No t Available gabapenti n 100 mg capsule TAKE TWO CAPSULES BY MOUTH AT BEDTIME 06/09 completed HN: Patient reports no longer taking Not Available Not Available Not Available dicyclomi ne 10 mg capsule TAKE ONE CAPSULE BY MOUTH FOUR TIMES A DAY 06/09 completed HN: Patient reports no longer taking Not Available Not Available Not Available ezetimibe 10 mg tablet TAKE ONE TABLET BY MOUTH EVERY DAY . active Not Available Not Available No t Available timolol maleate (PF) 0.5 % eye drops in a dropperet te INSTILL 1 DROP INTO BOTH EYES BY OPHTHALM IC ROUTE ONCE DAILY active HN: Patient reports no longer taking Not Available Not Available Not Available rosuvasta tin 40 mg tablet TAKE ONE TABLET BY MOUTH AT BEDTIME . active Not Available Not Available No t Available calcium carbonate 333 1/day active Not Available Not Available No t Available IBU-200 06/09 completed HN: Patient reports no longer taking Not Available Not Available Not Available Adult Aspirin Regimen 81 mg tablet,de layed release Take 1 tablet every day by oral route. 06/09 completed HN: Patient reports no longer taking Not Available Not Available Not Available Fluad Quad (65yr up)(PF) 60 mcg (15 mcg x 4)/0.5mL IM syringe INFLUENZ A VACCINE 2020-202 1, ADMINIST ERED IM ARM _LOT____ __ROUTE IM 07/01 completed Not Available Not Available Not Available Vitals Date Recorded Body weight Body height Body mass index (BMI) Provider Name and Address Organization Details Last Updated DateTime 06/09/2022 95328.73321 77999 g 162.56 cm 28.8 kg/m2 Not Available Health Note 06/09/2022 08:55:31 Date Recorded Body weight Body height Body mass index (BMI) Provider Name and Address Organization Details Last Updated DateTime 06/30/2022 36951.56987 72021 g 165.1 cm 26.6 kg/m2 Not Available Health Note 06/30/2022 08:46:24 Date Recorded Body height Body weight Body mass index (BMI) Provider Name and Address Organization Details Last Updated DateTime 09/01/2022 162.56 cm 29827.67772 37081 g 28.3 kg/m2 Not Available Health Note 09/01/2022 08:20:38 Date Recorded Body height Provider Name an d Address Organization Details Last Updated DateTime 07/30/2020 165.1 cm Navya PATIÑO [facility] 07/30/2020 10:17:09 Date Recorded Body height Body mass index (BMI) Body weight Provider Name and Address Organization Details Last Updated DateTime 01/14/2021 165.1 cm 27.5 kg/m2 37839.74 g Polly Monte[facility] 01/14/2021 09:22:31 Social History Question Answer Notes LastModified by Organizat ion Details LastModified Time Tobacco Smoking Status Never Smoker Not Available Health Note 08/30/2022 11:54:52 What Is Your Level Of Alcohol Consumption? Moderate [email or web address] Information not available 08/30/2022 What Is Your Level Of Caffeine Consumption? Moderate [email or web address] Information not available 08/30/2022 How Much Tobacco Do You Chew? None [email or web address] Information not available 08/30/2022 Do You Or Have You Ever Used E-cigarettes Or Vape? Never Used Electronic Cigarettes [email or web address] Information not available 08/30/2022 Have You Or Anyone In Your House Tested Positive For COVID-19 In The Past 14 Days? No [email or web address] Information not available 06/07/2022 Have You Or Anyone In Your House Been Exposed To COVID-19 In The Past 14 Days? No [email or web address] Information not available 06/07/2022 Have You Or Anyone In Your Home Experienced Symptoms Of COVID 19 Such As Fever >100.4, Shortness Of Breath, Difficulty Breathing, Or A Cough? No [email or web address] Information not available 06/07/2022 Have You Traveled Outside Of [place] In The Past 30 Days? No [email or web address] Information not available 06/07/2022 Ethnicity Not /Latin o [email or web address] Information not available 07/01/2020 Preferred Language Kinyarwanda [email or web address] Information not available 07/01/2020 What Was The Date Of Your Most Recent Tobacco Screening? 09/01/2022 [email or web address] Information not available 08/30/2022 Do You Or Have You Ever Used Smokeless Tobacco? Never Used Smokeless Tobacco [email or web address] Information not available 08/30/2022 Do You Use Any Illicit Or Recreational Drugs? No [email or web address] Information not available 08/30/2022 Has Tobacco Cessation Counseling Been Provided? Yes Information not available 06/09/2022 On What Date Was Tobacco Cessation Counseling Provided? 06/09/2022 Information not available 06/09/2022 Do You Or Have You Ever Used Any Other Forms Of Tobacco Or Nicotine? No Information not available 06/09/2022 Sex: Unknown Functional Status None recorded. Mental Status None recorded. Family History Nothing Reported. Medical History Condition Response Sexually Transmitted Infection N Diabetes N Bleeding Disorder N High Blood Pressure Y Kidney Stones N Cancer Y Lung Disease N Depression N High Cholesterol Y GERD/Acid Reflux N Heart Disease N Gynecological HistoryNo gynecological history recorded. Obstetrics History GPAL:G 0 P 0 0 0 0 Immunizations Vaccine Type Date Status Provider Name and Address Organization Details Recorded Time SARS-COV-2 (COVID-19) vaccine, UNSPECIFIED 10/24/2021 completed Jc east [facility] 04/06/2023 11:14:54 SARS-COV-2 (COVID-19) vaccine, UNSPECIFIED 10/24/2021 completed Jc east [facility] 04/06/2023 11:14:54 SARS-COV-2 (COVID-19) vaccine, UNSPECIFIED 11/09/2021 completed Jc Meath null, [facility] 04/06/2023 11:14:54 Pneumococcal conjugate PCV 13 03/28/2015 completed Jc Meath null, [facility] 04/06/2023 11:14:44 pneumococcal polysaccharide PPV23 06/06/2016 completed Jc Meath null, [facility] 04/06/2023 11:14:43 pneumococcal polysaccharide PPV23 03/16/2018 completed Jc Meath null, [facility] 04/06/2023 11:14:43 zoster recombinant 03/16/2018 completed Jc Meath null, [facility] 04/06/2023 11:14:43 Influenza, adjuvanted, quadrivalent, PF 04/23/2020 completed Jc Meath null, [facility] 04/06/2023 11:14:43 COVID-19, mRNA, LNP-S, PF, 30 mcg/0.3 mL dose 11/02/2020 completed Jc Meath null, [facility] 04/06/2023 11:14:43 COVID-19, mRNA, LNP-S, PF, 30 mcg/0.3 mL dose 01/10/2021 completed Jc Meath null, [facility] 04/06/2023 11:14:43 COVID-19, mRNA, LNP-S, PF, 30 mcg/0.3 mL dose, marilin-sucrose 10/25/2021 completed Jc Meath null, [facility] 04/06/2023 11:14:43 Tdap 01/05/2012 completed Jc Meath null, [facility] 04/06/2023 11:14:43 Tdap 06/06/2016 completed Jc Meath null, [facility] 04/06/2023 11:14:44 zoster live 02/08/2015 completed Jc Meath null, [facility] 04/06/2023 11:14:44 Influenza, high-dose, trivalent, PF 04/22/2017 completed Jc Meath null, [facility] 04/06/2023 11:14:44 Influenza, high-dose, trivalent, PF 04/29/2016 completed Jc Meath null, [facility] 04/06/2023 11:14:44 Influenza, high-dose, trivalent, PF 05/01/2011 completed Jc Meath null, [facility] 04/06/2023 11:14:44 Influenza, high-dose, trivalent, PF 05/01/2014 completed Jc Meath null, [facility] 04/06/2023 11:14:44 Influenza, high-dose, trivalent, PF 05/02/2015 completed Jc Meath null, [facility] 04/06/2023 11:14:44 Influenza, high-dose, trivalent, PF 06/07/2019 completed Jc Meath null, [facility] 04/06/2023 11:14:44 Influenza, high-dose, trivalent, PF 06/08/2018 completed Jc Meath null, [facility] 04/06/2023 11:14:44 Influenza, split virus, trivalent, PF 04/21/2012 completed Jc Meath null, [facility] 04/06/2023 11:14:44 Influenza, split virus, trivalent, PF 06/01/2013 completed Jc Meath null, [facility] 04/06/2023 11:14:44 Past Encounters Encounter ID Performer Location Encounter Start Date Encounter Closed Date Diagnosis/Indication Diagnosis SNOMED-[facility] Code [id number] [facility] [address] [place] [phone] 07/01/2020 09:40:04 07/01/2020 11:34:39 Overactive urinary bladder [id number] [facility] [address] [place] [phone] 07/30/2020 09:47:56 07/30/2020 12:06:17 Retention of urine [id number] Increased frequency of urination [id number] [facility] [address] [place] [phone] 01/14/2021 09:18:31 01/16/2021 09:48:47 Nocturia [id number] [facility] [address] [place] [address] 06/09/2022 08:54:45 06/09/2022 10:49:01 Nocturia [id number] [facility] [address] [place] [address] 06/30/2022 08:46:19 06/30/2022 14:24:52 [id number] [facility] [address] [place] [address] 09/01/2022 08:20:34 09/01/2022 11:30:02 Nocturia [id number] Health Concerns Section Related Observation LastModified by Organization Detai ls LastModified Time None Recorded Concern Status LastModified by Organization Details LastModified Time None Recorded Advance Directives Directive None Recorded Payers Encounter Date Sequence Insurance Name Policy Number Policy Machado Covered Member ID Machado Member ID Guarantor Name 07/30/2020 2 [place] [id number] Mariana Rajan [id number] Khushbu Lambwinsome 07/30/2020 1 [place] [employer] Khushbuandi Rajan [id number] Khushbu Lambert 01/14/2021 2 [place] [id number] Mariana Gtzert [id number] Khushbu Lambert 01/14/2021 1 [place] [employer] Khushbuandi Gtzert [id number] Khushbu Lambert 06/09/2022 1 [place] [employer] Khushbuandi Gtzert [id number] Khushbu Lambert 06/09/2022 2 [place]MEDICARE SUPPLEMENT) [id number] Khushbu Lambert [id number] Khushbu Lambert 06/30/2022 1 [place] [employer] Khushbu Lambert [id number] Khushbu Lambert 06/30/2022 2 [place] F (MEDICARE SUPPLEMENT) [id number] Khushbu Lambert [id number] Khushbu Lambert 09/01/2022 1 [place] [employer] Khushbu Rajan [id number] Khushbu Rajan 09/01/2022 2 [place] F (MEDICARE SUPPLEMENT) [id number] Khushbu Rajan [id number] Khushbu Rajan Notes Date Note Type Note Provider Name and Address Organization Details Recorded Time 07/30/2020 text/html HPI Notes: frequency and nocturia. oxybutynin trial. helpful for frequency. tolerating medication. no dry mouth or dry eyes. Trav Oshea MD [address] [place] [address],[address], [phone], [facility] 07/30/2020 10:53:40 01/14/2021 text/html HPI Notes: nocturia. 3-4 times at night. oxybutynin. Reports no problems during the day. The oxybutynin was effective initially but now no longer is. Trav Oshea MD [address] [place] [address],[facility], [place], [address], [facility] 01/14/2021 15:28:10 06/09/2022 text/html HPI Notes: This is an 82 year old female who is here for the ongoing management of nocturia. She previously followed with my partner Dr. Oshea. She complains of nocturia x 3-4. She has previously utilized oxybutynin ER 5 mg daily and tolterodine 2 mg daily. She didn't find this helped. She denies a history of sleep apnea and does not snore. Overactive Bladder Pathway Questionnaire: Uses the restroom: 14 times per day Uses the restroom (nighttime): every 5 hours Accidents: 0 per day Pads: using 1 per day Happy with current treatment plan: no Urogenital Distress Inventory (PASTORA-6): [3]Frequent urination: Greatly [1] Urine leakage related to the feeling of urgency: Slightly [1] Urine leakage related to physical activity, coughing or sneezing: Slightly [1] Small amounts of urine leakage (drops): Slightly [0] Difficulty emptying your bladder: Not at All [0] Pain or discomfort in the lower abdominal or genital area: Not at All Incontinence Impact Questionnaire (IIQ-7): [0] Ability to do prosthetic assistant (cooking, housecleaning): Not at All [0] Physical recreation such as walking, or other exercise: Not at All [1] Ability to attend entertainment activities (movie, concerts): Slightly [0] Ability to travel by car more than 30 minutes from home: Not at All [0] Participation in social activities outside your home: Not at All [0] Emotional health (nervousness, depression, etc): Not at All [2] [place] frustrated: Moderately Continence Function Questionnaire: [2] Urinary control: Occasional dribbling [2] Leaked urine: About once a week or less often [5] How big of a problem urinary function has been: Big problem Michael Lindsay MD [address] [place] [address], [phone], [facility] 06/09/2022 09:57:21 09/01/2022 text/html HPI Notes: This is an 82 year old female who is here for the ongoing management of nocturia. She previously followed with my partner Dr. Oshea. She complains of nocturia x 3-4. She has previously utilized oxybutynin ER 5 mg daily and tolterodine 2 mg daily. She didn't find this helped. She denies a history of sleep apnea and does not snore. She completed a voiding diary before today visit which shows the followin06/10/2022: Total fluid intake: 3 liters Fluid intake stops after 2100 Daytime voided volume: 1.7 liters Overnight voided volume: 0.95 liters Overnight production: 35.8% 06/23/2022: Total fluid intake: 1.7 liters Fluid intake stops after 2000 Daytime voided volume: 1.1 liters Overnight voided volume: 0.8 liters Overnight production: 42% Michael Lindsay MD [address] [place] [address],[address], [phone], [facility] 09/01/2022 10:47:38 OBGyn Episode No OBEpisode recorded.
--- OUTSIDE RECORDS SUMMARY | 2024-02-04 05:55 | XMS_ITS | Encounter Summary ---
Author Organization [facility] Address [address] [place] [address] Care Team Providers Care Early Childhood Coordinator Name Role Phone Elsewhere, Pcp Primary Care Provider Unavailabl e Encounter Details Date Type Department Care Team (Late st Contact Info) Description 12/20/2015 Historical Ophthalmology [facility] O[facility] Susan Hernandez M.D. [address] [place] [phone] Social History Tobacco Use Types Packs/Day Years Used Date Smoking Tobacco: Never Assessed Sex and Gender Information Value Date Recorded Sex Assigned at Female 07/21/2021 3:59 PM SECONDARY SCHOOL PRINCIPAL Gender Identity Female 09/12/2020 7:45 PM SECONDARY SCHOOL PRINCIPAL Sexual Orientation Straight 09/14/2020 9: 40 AM SECONDARY SCHOOL PRINCIPAL documented as of this encounter Progress Notes * Susan Hernandez M.D. - 12/20/2015 10:48 AM CDT Eye General CHIEF COMPLAINT glc susp Left eye based on c.d and OCT and HVF HISTORY OF PRESENT ILLNESS This is a 75 year old female here for glc susp Left eye based on c.d and OCT and HVF. Pt was referred by Dr. Maradiaga for glaucoma. Light flashes alone; both eyes; x 2 years; occasionally; accompanied with a head ache. Denies ocular pain and floaters. 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 Patient has retina laser scars just superior to superotemporal arcade that coincide with 24-2 inferior nasal defect and OCT defect OCT 20 Dec 2015: right eye normal , left eye superior thinning , avg RNFL 89/72 , SS 7/5 Plan: continue latanoprost RTC 2 months with visual field #2 Convergence insuff and LHT ache in [...] eye pain CDM Reports - EYEGEN Id: [id number] Status: Fnl documented in this encounter Plan of Treatment Not on file documented as of this encounter Visit Diagnoses Not on filedocumented in this encounter Additional Health Concerns Infection Onset Date Last Indicated Resolved Time COVID19 Pending 09/13/2020 09/13/2020 09/13/2020 1 0:20 PM SECONDARY SCHOOL PRINCIPAL COVID19 Pending 12/11/2020 12/11/2020 12/12/2020 1 :06 AM CDT Assessment Noted Time PHQ-9 Depression Total Score: 0 07/07/20 12 9:38 AM SECONDARY SCHOOL PRINCIPAL documented as of this encounter Care Teams Early Childhood Coordinator Relationship Specialty Start Date End Date Elsewhere, Pcp PCP - General Family Medicine 12/17/20 documented as of this encounter
--- OUTSIDE RECORDS SUMMARY | 2024-02-04 05:55 | XMS_ITS | Encounter Summary ---
Author Organization [facility] Address [address] [place] [address] Care Team Providers Care Surgical Sales Representative Name Role Phone Elsewhere, Pcp Primary Care Provider Unavailabl e Encounter Details Date Type Department Care Team (Late st Contact Info) Description 09/02/2011 Historical Ophthalmology RST [facility] Garrett Maradiaga M.D. [address], [place] [phone] Social History Tobacco Use Types Packs/Day Years Used Date Smoking Tobacco: Never Assessed Sex and Gender Information Value Date Recorded Sex Assigned at Female 07/21/2021 3:59 PM RAYON WINDER Gender Identity Female 09/12/2020 7:45 PM RAYON WINDER Sexual Orientation Straight 09/14/2020 9: 40 AM RAYON WINDER documented as of this encounter Progress Notes * Garrett Maradiaga M.D. - 09/02/2011 3:07 PM CST Eye General CHIEF COMPLAINT Exotropia HISTORY OF PRESENT ILLNESS This is a 71 year old female here for follow up on exotropia. Double vision has improved since lastvisit. No double at all at distance with NEW fresnel prism; still has occasional double for reading. Depth perception has not improved. Wearing fresnel 15 BI and BD L, no diplopia with fresnel on, 100% improvement with Fresnel. Questions today: 1) wondering if it would be possible to have it ground in 2) If she goes on to surgery, would it be on one eye or on both? IMPRESSION / REPORT / PLAN #1 exotropia #2 left hypertropia since cat surg 2001 #3 Left epiretinal membrane sp memb peel surg in 2006 [place] no clear central peiph rivalry doing better w tilted 15 BI - 15 BI and BD L for horiz and vert - confirmed today that 12 BI and 4 BD L is best solution - grind splitting options 1. ground in prism 2. surg eg LSR rec and LLR rec - pt elects prism intermittent ache behind Left eye - no specifc cause found - may be still strain to fuse since morelater in day see 1 yr unless decide to proceed w surg - if so consider LMR resect for CI type pattern and sympt at near DIAGNOSIS #1 exotropia #2 left hypertropia #3 Left epiretinal membrane CDM Reports - EYEGEN Id: [id number] Status: Fnl documented in this encounter Plan of Treatment Not on file documented as of this encounter Visit Diagnoses Not on filedocumented in this encounter Additional Health Concerns Infection Onset Date Last Indicated Resolved Time COVID19 Pending 09/13/2020 09/13/2020 09/13/2020 1 0:20 PM RAYON WINDER COVID19 Pending 12/11/2020 12/11/2020 12/12/2020 1 :06 AM CDT documented as of this encounter Care Teams Surgical Sales Representative Relationship Specialty Start Date End Date Elsewhere, Pcp PCP - General Family Medicine 12/17/20 documented as of this encounter
--- OUTSIDE RECORDS SUMMARY | 2024-02-04 05:55 | XMS_ITS | Encounter Summary ---
Author Organization [facility] Address [address] [place] [address] Care Team Providers Care Industrial Relations Manager Name Role Phone Elsewhere, Pcp Primary Care Provider Unavailabl e Encounter Details Date Type Department Care Team (Late st Contact Info) Description 05/11/2014 Historical Ophthalmology RST OPH Garrett Maradiaga M.D. [address] [place], [place] [phone] Social History Tobacco Use Types Packs/Day Years Used Date Smoking Tobacco: Never Assessed Sex and Gender Information Value Date Recorded Sex Assigned at Female 07/21/2021 3:59 PM MAGNETIC GRINDER OPERATOR Gender Identity Female 09/12/2020 7:45 PM MAGNETIC GRINDER OPERATOR Sexual Orientation Straight 09/14/2020 9: 40 AM MAGNETIC GRINDER OPERATOR documented as of this encounter Progress Notes * Garrett Maradiaga M.D. - 05/11/2014 12:57 PM CDT Eye General CHIEF COMPLAINT decreased vision. HISTORY OF PRESENT ILLNESS Decreased vision; left eye; distance. Difficulty walking on un-even surfaces- noticing changes in depth perception. No double vision. Ground in prism has helped a great deal. Here today for a routinecheck- no double in prism glasses. JMH - longstanding XT HT after cat surg 2001 - prism Rx 2011 here - which she likes. mac pucker surgery 2006 - rates diplopia D and N as rarely -- artist - difficulty knowing on canvus or 2 inch away IMPRESSION / REPORT / PLAN #1 exotropia CI pattern doing well in prism #2 left hypertropia since cat surg 2001 - can reduce vert prism - no true CPR #3 Left epiretinal membrane no clear central peiph rivalry but 30% aniso since [place] down left and sympt - get OCT and see [facility] DIAGNOSIS #1 exotropia #2 left hypertropia #3 Left epiretinal membrane CDM Reports - EYEGEN Id: [id number] Status: Fnl documented in this encounter Plan of Treatment Not on file documented as of this encounter Visit Diagnoses Not on filedocumented in this encounter Additional Health Concerns Infection Onset Date Last Indicated Resolved Time COVID19 Pending 09/13/2020 09/13/2020 09/13/2020 1 0:20 PM MAGNETIC GRINDER OPERATOR COVID19 Pending 12/11/2020 12/11/2020 12/12/2020 1 :06 AM CDT Assessment Noted Time PHQ-9 Depression Total Score: 0 07/07/20 12 9:38 AM MAGNETIC GRINDER OPERATOR documented as of this encounter Care Teams Industrial Relations Manager Relationship Specialty Start Date End Date Elsewhere, Pcp PCP - General Family Medicine 12/17/20 documented as of this encounter
--- OUTSIDE RECORDS SUMMARY | 2024-02-04 05:55 | XMS_ITS | Encounter Summary ---
Author Organization [facility] Address [address] [place] [address] Care Team Providers Care Manager Area Name Role Phone Elsewhere, Pcp Primary Care Provider Unavailabl e Encounter Details Date Type Department Care Team (Late st Contact Info) Description 06/12/2015 Historical Ophthalmology RST [facility] Garrett Maradiaga M.D. [address] [place], [place] [address] Social History Tobacco Use Types Packs/Day Years Used Date Smoking Tobacco: Never Assessed Sex and Gender Information Value Date Recorded Sex Assigned at Female 07/21/2021 3:59 PM ENGINEERING PROJECT MANAGER Gender Identity Female 09/12/2020 7:45 PM ENGINEERING PROJECT MANAGER Sexual Orientation Straight 09/14/2020 9: 40 AM ENGINEERING PROJECT MANAGER documented as of this encounter Progress Notes * Garrett Maradiaga M.D. - 06/12/2015 1:51 PM CST Eye General CHIEF COMPLAINT Convergence insuff and LHT HISTORY OF PRESENT ILLNESS 75 year old female here for Convergence insuff and LHT. Pain has decreased to a 2-3 out of 10- continuing to use artificial tears. No head aches, rash, or discharge. No new concerns. JM - here for recheck of pressure in [place] - IMPRESSION / REPORT / PLAN #1 Convergence insuff and LHT relatively happy in current prism - but given ache in L eye tray additional 6 BI left #2 sp L ERM peel sb RI - nothing futher for ret - OCT shows thickened macular #3 glc susp based on c.d and OCT and HVF IOP not acceptable on Latanoprost alone - but will add when stopped changimng other Mx #4 Left eye pain but no infection or inflammation - improving and nothing new - celluvisc q2 - see 5 days DIAGNOSIS #1 Convergence insuff and LHT #2 sp L ERM peel #3 glc susp based on c.d and OCT and HVF #4 Left eye pain CDM Reports - EYEGEN Id: [id number] Status: Fnl documented in this encounter Plan of Treatment Not on file documented as of this encounter Visit Diagnoses Not on filedocumented in this encounter Additional Health Concerns Infection Onset Date Last Indicated Resolved Time COVID19 Pending 09/13/2020 09/13/2020 09/13/2020 1 0:20 PM ENGINEERING PROJECT MANAGER COVID19 Pending 12/11/2020 12/11/2020 12/12/2020 1 :06 AM CDT Assessment Noted Time PHQ-9 Depression Total Score: 0 07/07/20 12 9:38 AM ENGINEERING PROJECT MANAGER documented as of this encounter Care Teams Manager Area Relationship Specialty Start Date End Date Elsewhere, Pcp PCP - General Family Medicine 12/17/20 documented as of this encounter
--- OUTSIDE RECORDS SUMMARY | 2024-02-04 05:55 | XMS_ITS | Clinical Summary ---
Author Organization [place] Address [address] [facility] [place] [address] Care Team Providers Care Water Supply Engineer Name Role Phone Abhi Weldon MD Primary Care Provider [employer] [facility] Unavailable Allergies No known active allergies Medications [...] d (SHINGRIX) 03/16/2018 Zoster vaccine, live 02/08/2015 Family History Medical History Relation Comments C.A.D. Father Heart Disease Father Hypertension Father C.A.D. Mother Heart Disease Mother Hypertension Mother Breast Cancer Sister Relation Status Comments Father (Age 74) Mother (Age 74) Sister (Age 69) Son Alive Social History Tobacco Use Types Packs/Day Years [...] CDT Respiratory Rate 18 07/23/2011 3:47 PM AIR CHIEF MARSHAL Oxygen Saturation 97% 11/10/2017 6:53 PM CDT Inhaled Oxygen Concentration - - Weight 72.6 kg (160 lb) 11/10/2017 6:53 PM CDT Height 165.1 cm (5' 5) 07/23/2011 3:47 PM AIR CHIEF MARSHAL Body Mass Index 26.63 07/23/2011 3:47 PM AIR CHIEF MARSHAL Plan of Treatment Health Maintenance Due Date Last Done Comments ANNUAL REVIEW OF HM ORDERS 1940 RSV VACCINE ( & 60+) (1 - 1-dose 60+ series) 1999 LIPID 12/13/2012 12/14/2011, 06/03, 01/01/2011, Additional history exists ADVANCE CARE PLANNING 07/23/2016 07/23/2011 , 07/23/2011, 07/23/2011 ZOSTER IMMUNIZATION (3 of 3) 11/20/2020 09/25/2020, 03/16/2018, 02/08/2015 MEDICARE ANNUAL WELLNESS VISIT 09/10/2022 09/10/2021 COVID-19 Vaccine ( season) 2023 10/25/2021, 01/10/2021, 11/02/2020 FALL RISK ASSESSMENT 04/20/2023 04/20/2022 PHQ-2 (once per calendar year) 2023 04/20/2022 INFLUENZA VACCINE (#1) 2024 , 06/07/2019, 06/08/2018, Additional history exists DEXA 07/29/2025 07/29/2010 DTAP/TDAP/TD IMMUNIZATION (3 - Td or Tdap) 06/06/2026 06/06/2016, 01/05/2012 Pneumococcal Vaccine: 65+ Years Completed 03/16/2018, 06/06/2016, 03/28/2015, Additional history exists MAMMO SCREENING Discontinued 09/26/2020, 03/03, 01/31/2010 HPV IMMUNIZATION Aged Out No longer e ligible based on patient's age to complete this topic IPV IMMUNIZATION Aged Out No longer e ligible based on patient's age to complete this topic MENINGITIS IMMUNIZATION Aged Out No l onger eligible based on patient's age to complete this topic RSV MONOCLONAL ANTIBODY Aged Out No l onger eligible based on patient's age to complete this topic Procedures Procedure Name Priority Date/Time Associated Diagnosis Comments MA DIAGNOSTIC BILATERAL W/ RUTH Routine 09/26/2020 8:02 AM AIR CHIEF MARSHAL LIPID REFLEX TO DIRECT LDL PANEL Routine 12/14/2011 1:32 PM CDT Hyperlipidemia LDL goal <130 DX BONE DENSITY Routine 07/29/2010 DIAGNOSIS NOT YET DEFINED from Last 3 Months or Most Recently Relevant to Health Maintenance Results * Lipid panel reflex to direct LDL (12/14/2011 1:32 PM CDT) Cholesterol 198 0 - 200 mg/dL [facility] Comment: LDL Cholesterol is the primary guide to therapy. The NCEP recommends further evaluation of: patients with cholesterol greater than 200 mg/dL if additional risk factors are present, cholesterol greater than 240 mg/dL, triglycerides greater than 150 mg/dL, or HDL less than 40 mg/dL. Triglycerides 65 0 - 150 mg/dL [facility] HDL Cholesterol 78 50 - 110 mg/dL [facility] LDL Cholesterol Calculated 107 0 - 129 mg/dL [facility] Comment: LDL Cholesterol is the primary guide to therapy: LDL-cholesterol goal in high risk patients is <100 mg/dL and in very high risk patients is <70 mg/dL. VLDL-Cholesterol 13 0 - 30 mg/dL [facility] Cholesterol/HDL Ratio 2.5 0.0 - 5.0 [facility] Blood specimen (specimen) 12/14/2011 1:32 PM CDT 12/14/2011 1:33 PM CDT Sadie Redman MD LAB - BLOOD ORDER [facility] * Dexa hip/pelvis/spine* (07/29/2010) Anatomical Region Laterality Modality Dexa Other Sadie Redman MD IMG DEXA ORDERABL ES from Last 3 Months or Most Recently Relevant to Health Maintenance Care Teams Water Supply Engineer Relationship Specialty Start Date End Date Abhi Weldon MD [facility] [address] [place] [address] PCP - General Emergency Medicine 11/10/17 Clinic - [facility] [id number] [place] [address] KAYLYN BURRELL [id number] Assigned PCP 08/26/23
--- OUTSIDE RECORDS SUMMARY | 2024-02-04 05:55 | XMS_ITS | Encounter Summary ---
Author Organization [facility] Address [address] [place] [address] Care Team Providers Care Water Systems Engineer Name Role Phone Elsewhere, Pcp Primary Care Provider Unavailabl e Encounter Details Date Type Department Care Team (Late st Contact Info) Description 05/27/2011 Historical Ophthalmology RST OPH Garrett Maradiaga M.D. [address], [place] [id number] Social History Tobacco Use Types Packs/Day Years Used Date Smoking Tobacco: Never Assessed Sex and Gender Information Value Date Recorded Sex Assigned at Female 07/21/2021 3:59 PM PLATING ENGINEER Gender Identity Female 09/12/2020 7:45 PM PLATING ENGINEER Sexual Orientation Straight 09/14/2020 9: 40 AM PLATING ENGINEER documented as of this encounter Progress Notes * Garrett Maradiaga M.D. - 05/27/2011 1:33 PM CDT Eye General CHIEF COMPLAINT Exotropia HISTORY OF PRESENT ILLNESS This is a 71 year old female here for follow up on exotropia. Double vision has improved since lastvisit. No double at all at distance with fresnel prism, but still has some double for reading- describes only right half of a sentence on a page is double. Depth perception has not improved. SRM: wearing 15BI prism - much improved at distance but often dipl for reading (by DQ). Horiz & vert se paration. IMPRESSION / REPORT / PLAN #1 exotropia main sympt is near visual confusion doing better w 15 BI - but vert barrier to fusion - so rotal 15 BI and BD L for horiz and vert - see 4-6 weeks to eval and consider ground in vs surg - DIAGNOSIS #1 exotropia CDM Reports - EYEGEN Id: [id number] Status: Fnl documented in this encounter Plan of Treatment Not on file documented as of this encounter Visit Diagnoses Not on filedocumented in this encounter Additional Health Concerns Infection Onset Date Last Indicated Resolved Time COVID19 Pending 09/13/2020 09/13/2020 09/13/2020 1 0:20 PM PLATING ENGINEER COVID19 Pending 12/11/2020 12/11/2020 12/12/2020 1 :06 AM CDT documented as of this encounter Care Teams Water Systems Engineer Relationship Specialty Start Date End Date Elsewhere, Pcp PCP - General Family Medicine 12/17/20 documented as of this encounter
== END 2024-02-02 09:56 | disposition home or self-care (01) ==
LOC: NFLDREF 02-04 05:52
PROVIDERS: PCP Internal Medicine; Referring Provider Internal Medicine; Visit Provider Internal Medicine
DX: I10 Essential (primary) hypertension (principal); E78.5 Hyperlipidemia, unspecified; I73.9 Peripheral vascular disease, unspecified
CPT/HCPCS: 80053; 80061

== ENCOUNTER 2024-06-20 14:48 | Outpatient (CLI) | payer MEDICARE, BC, SELFPAY ==
--- OUTSIDE RECORDS SUMMARY | 2024-06-20 14:50 | XMS_ITS | Encounter Summary ---
Author Organization [place] Address [address] [place] [address]. [place] [address] Care Team Providers Care Lead Dental Assistant Name Role Phone Abhi Weldon MD Primary Care Provider [facility] - Kory Burrell [facility] Unavailable Encounter Details Date Type Department Care Team (Late st Contact Info) Description 10/14/2023 MyC Medical Advice [place] [id number] [facility] [place] [address] [facility] [place] Social History Tobacco Use Types Packs/Day Years Used Date Smoking Tobacco: Former Smokeless Tobacco: Former Quit: 08/02/1961 Alcohol Use Standard Drinks/Week Comments Yes 0 (1 standard drink = 0.6 oz pur e alcohol) glass of wine daily PHQ-2 Answer Date Recorded PHQ-2 Score 0 04/20/2022 Adolescent Education Answer Date Record ed Getting School Help Needed Not on file 05/19 Comments No Sex and Gender Information Value Date Recorded Sex Assigned at Not on file Legal Sex Female 4:58 AM BOX FEEDER Gender Identity Not on file Sexual Orientation Not on file documented as of this encounter Plan of Treatment Not on file documented as of this encounter Visit Diagnoses Not on filedocumented in this encounter Care Teams Lead Dental Assistant Relationship Specialty Start Date End Date Abhi Weldon MD [facility] [address] [place] [address] PCP - General Emergency Medicine 11/10/17 [facility] Kory Burrell [facility] [address] [facility] [place] [address] Assigned PCP 08/26/23 documented as of this encounter
--- OUTSIDE RECORDS SUMMARY | 2024-06-20 14:50 | XMS_ITS | Clinical Summary ---
Author Organization [place] Address [address] [facility] [place] [address] Care Team Providers Care Business Analyst Name Role Phone Abhi Weldon MD Primary Care Provider [facility] - [place] Unavailable Allergies No known active allergies Medications Multiple Vitamins-Minera ls (MULTIVITAL-M PO) Take 1 tablet by mouth daily. Active aspirin 81 MG tablet Take 1 tablet by mouth daily. Active Calcium Carbonate-Vitam in D (CALCIUM + D) 600-200 MG-UNIT per tablet Take 1 tablet by mouth 2 times daily. Active ezetimibe (ZETIA) 10 MG tabletIndicatio ns:Hyperlipidem ia LDL goal <130 Take 1 tablet by mouth daily. 90 tablet prn 2 Active pravastatin (PRAVACHOL) 10 MG tabletIndicatio ns:Hyperlipidem ia LDL goal <130 Take 1 tablet by mouth daily. 90 tablet 1 2 Active amLODIPine (NORVASC) 5 MG tablet Take 5 mg by mouth 6 Active calcium carbonate (OSCAL 500) 1250 (500 Ca) MG TABS tablet Take 1,250 mg by mouth 6 Active Cholecalciferol (VITAMIN D3) 1000 units CAPS Take 1,000 Units by mouth 6 Active dorzolamide-cornell olol PF (COSOPT) 22.3-6.8 MG/ML opthalmic solution 6 Active latanoprost (XALATAN) 0.005 % ophthalmic solution 1 drop 10/31/201 6 Active minoxidil (ROGAINE) 2 % external solution 6 Active UNABLE TO FIND MEDICATION NAME: Zinc, [...] 01/25/2015 02/22/2015 Advanced directives, counseling/discussion 07/23/2011 01/17/2024 Overview (07/23/2011): Advance Directive Problem List Overview: Name Relationship Phone Primary Health Care Agent Alternative Health Care Agent Patient states has Advance Directive and will bring in a copy to clinic. 07/23/2011 Immunizations Name Administration Dates Next Due COVID-19 MONOVALENT 12+ (Pfizer) 01/10/2021,04/0 09/2020 Influenza (High Dose) Trival ent,PF (Fluzone) 06/07/2019,06/08/2018,04/22/2017,2015,05/02/2015,05/01/2014,05/01/2011 Influenza (prior to 2023) 06/01/2013,04/21/2012 Influenza Vaccine 65+ (FLUAD) 04/23/2020 Pneumo Conj 13-V (2010&after) 03/28/2015 Pneumococcal 23 [...] on file Legal Sex Female 4:58 AM CHIEF ENGINEER Gender Identity Not on file Sexual Orientation Not on file Last Filed Vital Signs Vital Sign Reading Time Taken Comments Blood Pressure 150/68 11/10/2017 6:53 PM CDT Pulse 70 11/10/2017 6:53 PM CDT Temperature 36.7 C (98 F) 11/10/2017 6:53 PM CDT Respiratory Rate 18 07/23/2011 3:47 PM CHIEF ENGINEER Oxygen Saturation 97% 11/10/2017 6:53 PM CDT Inhaled Oxygen Concentration - - Weight 72.6 kg (160 lb) 11/10/2017 6:53 PM CDT Height 165.1 cm (5' 5) 07/23/2011 3:47 PM CHIEF ENGINEER Body Mass Index 26.63 07/23/2011 3:47 PM CHIEF ENGINEER Plan of Treatment Health Maintenance Due Date Last Done Comments ANNUAL REVIEW OF HM ORDERS 1939 LIPID 12/13/2012 12/14/2011, 06/03, 01/01/2011, Additional history exists RSV VACCINE (1 - 1-dose 75+ series) 2014 ADVANCE CARE PLANNING 07/23/2016 07/23/2011 , 07/23/2011, 07/23/2011 ZOSTER IMMUNIZATION (3 of 3) 11/20/2020 09/25/2020, 03/16/2018, 02/08/2015 MEDICARE ANNUAL WELLNESS VISIT 09/10/2022 09/10/2021 FALL RISK ASSESSMENT 04/20/2023 04/20/2022 PHQ-2 (once per calendar year) 2023 04/20/2022 COVID-19 Vaccine ( season) 2024 10/25/2021, 01/10/2021, 11/02/2020 INFLUENZA VACCINE (#1) 2024 , 06/07/2019, 06/08/2018, [...] Procedure Name Priority Date/Time Associated Diagnosis Comments LIPID REFLEX TO DIRECT LDL PANEL Routine 12/14/2011 1:32 PM CDT Hyperlipidemia LDL goal <130 MA SCREENING DIGITAL BILATERAL Routine 03/26/2011 9:45 AM CDT DX BONE DENSITY Routine 07/29/2010 DIAGNOSIS NOT YET DEFINED from Last 3 Months or Most Recently Relevant to Health Maintenance Results * Lipid panel reflex to direct LDL (12/14/2011 1:32 PM CDT) Cholesterol 198 0 - 200 mg/dL [facility] Comment: LDL Cholesterol is the primary guide to therapy. The NCEP recommends further evaluation of: patients with cholesterol greater than 200 mg/dL if additional risk factors are present, cholesterol greater than 240 mg/dL, triglycerides greater than 150 mg/dL, or HDL less than 40 mg/dL. Triglycerides 65 0 - 150 mg/dL [facility] HDL Cholesterol 78 50 - 110 mg/dL [facility] LDL Cholesterol Calculated 107 0 - 129 mg/dL [facility] Comment: LDL Cholesterol is the primary guide to therapy: LDL-cholesterol goal in high risk patients is <100 mg/dL and in very high risk patients is <70 mg/dL. VLDL-Cholesterol 13 0 - 30 mg/dL [facility] Cholesterol/HDL Ratio 2.5 0.0 - 5.0 [facility] Blood specimen (specimen) 12/14/2011 1:32 PM CDT 12/14/2011 1:33 PM CDT us Sadie Redman MD LAB - BLOOD ORDERABLES Fi nal Result [address] [address] * Mammo Screening digital (bilat) (03/26/2011 9:45 AM CDT) Anatomical Region Laterality Modality Breast Bilateral Other 03/26/2011 9:45 AM CDT Impressions 04/03/2011 3:06 PM CDT SCREENING MAMMOGRAM, BILATERAL, DIGITAL w/CAD - March 27, 2011 BREAST SYMPTOMS: None reported. Sister with history of breast cancer in her 60s. COMPARISON: 01/31/2010, 06/13/2007. PARENCHYMAL PATTERN: Almost entirely fatty. COMMENTS: No findings of suspicion for malignancy. IMPRESSION: BI-RADS 1, NEGATIVE. us Sadie Redman MD IMG MAMMOGRAPHY ORDERABLE S Edited * Dexa hip/pelvis/spine* (07/29/2010) Anatomical Region Laterality Modality Dexa Other us Sadie Redman MD IMG DEXA ORDERABLES Final Result from Last 3 Months or Most Recently Relevant to Health Maintenance Insurance MEDICARE [facility] OUT OF STATE Care Teams Business Analyst Relationship Specialty Start Date End Date Abhi Weldon MD [facility] [address] [place] [address] PCP - General Emergency Medicine 11/10/17 Clinic - [address] [place] [address] Assigned PCP 08/26/23
--- OUTSIDE RECORDS SUMMARY | 2024-06-20 14:50 | XMS_ITS | Encounter Summary ---
Author Organization [place] Address [facility] [place] [address] Care Team Providers Care Cable Rigger Name Role Phone Sadie Redman MD Primary Care Provider [phone] Abhi Weldon MD Primary Care Provider [facility] Unavailable Encounter Details Date Type Department Care Team (Late st Contact Info) Description 10/29/2011 MyC Medical Advice Initial Department [facility] Social History Tobacco Use Types Packs/Day Years Used Date Smoking Tobacco: Former Smokeless Tobacco: Former Quit: 08/02/1961 Alcohol Use Standard Drinks/Week Comments Yes 0 (1 standard drink = 0.6 oz pur e alcohol) glass of wine daily Comments No Sex and Gender Information Value Date Recorded Sex Assigned at Not on file Legal Sex Female 4:58 AM TIRE MAKER Gender Identity Not on file Sexual Orientation Not on file documented as of this encounter Plan of Treatment Not on file documented as of this encounter Visit Diagnoses Not on filedocumented in this encounter Care Teams Cable Rigger Relationship Specialty [place] [address] [place] [address] PCP - General Internal Medicine 12/08/10 11/09/17 Abhi Weldon MD [facility] [address] [place] [address] PCP - General Emergency Medicine 11/10/17 Clinic - Kory Burrell [address] [place] [address] Assigned PCP 08/26/23 documented as of this encounter
--- OUTSIDE RECORDS SUMMARY | 2024-06-20 14:50 | XMS_ITS | Clinical Summary ---
Author Organization [facility] Address [place], [place] [address] Care Team Providers Care Demonstrator Electric Gas Appliances Name Role Phone Abhi Weldon MD Primary Care Provider Allergies No known active allergies Medications Medication Sig Dispensed Refills Start Date End Date Status amLODIPine (NORVASC) 5 mg tablet Take 1 tablet by mouth once daily. 0 06/01/2016 Active dorzolamide-timolol, PF, 2-0.5 % ophthalmic solution Place into the eye(s). 0 06/01/2016 Active latanoprost (XALATAN) 0.005 % ophthalmic solution Place 1 Drop into left eye at bedtime. 2.5 mL 06/01/2016 Active rosuvastatin (CRESTOR) 40 mg tabletIndications:Pure hypercholesterolemia Take 1 Tablet (40 mg) by mouth at bedtime. 90 Tablet 10/16/2023 Active ezetimibe (ZETIA) 10 mg tabletIndications:Pure hypercholesterolemia Take 1 Tablet (10 mg) by mouth once daily. 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 06/01/2016 Essential hypertension 06/01/2016 Pure hypercholesterolemia 06/01/2016 Breast cancer, stage 1 06/01/2016 Glaucoma 06/01/2016 Status post cholecystectomy 06/01/2016 Status post hysterectomy 06/01/2016 Immunizations Name Administration Dates Next Due COVID-19 vaccine (Tern NTNexant 30mcg/0.3mL) PF, MDV 01/10/2021,11/02/2020 Influenza Virus, Unspecified 04/23/2020, 06/07/2019,06/08/2018,2016,04/29/2016,05/02/2015,05/01/2014,1 ,04/21/2012 [...] 83 11/09/2023 9:26 AM CDT Temperature 36.7 C (98 F) 05/19/2021 9:13 AM CDT Respiratory Rate 16 10/06/2021 3:07 PM CONCRETE BUILDING ASSEMBLER Oxygen Saturation 96% 11/09/2023 9:26 AM CDT Inhaled Oxygen Concentration - - Weight 76.7 kg (169 lb 3.2 oz) 11/09/2023 9:26 A M CDT Height 165.1 cm (5' 5) 10/01/2022 2:41 PM CONCRETE BUILDING ASSEMBLER Body Mass Index 28.16 10/01/2022 2:41 PM CONCRETE BUILDING ASSEMBLER Plan of Treatment Health Maintenance Due Date Last Done Comments DEXA/DXA scan for age 65+ 01/08/2004 RSV vaccine for adults or (1 - 1-dose 75+ series) 2014 Zoster (shingles) series for age 50+ (3 of 3) 05/11/2018 03/16/2018, 02/08/2015 Depression screening for age 12+ 09/10/2022 09/10/19 Medicare Wellness for age 65+ 09/11/2022 09/10/2021 BMI (ht and wt on same day) for age 18+ 10/02/2023 10/01/2022, 09/10/2021, 12/21/2019, Additional history exists COVID-19 vaccine series ( season) 2024 10/25/2021, 01/10/2021, 11/02/2020 Influenza for age 65+ 04/02/2024 04/23/2020 , [...] 8:14 AM 06/05/2016 12:40 PM Care Teams Demonstrator Electric Gas Appliances Relationship Specialty Start Date End Date Abhi Weldon MD [address] [place] [address] PCP - General Emergency Medicine 05/19/16
--- OUTSIDE RECORDS SUMMARY | 2024-06-20 14:50 | XMS_ITS | Encounter Summary ---
Author Organization [place] Address [facility] [place] [address] Care Team Providers Care Apparel Rental Clerk Name Role Phone Sadie Redman MD Primary Care Provider [phone] Abhi Weldon MD Primary Care Provider [facility] Unavailable Reason for Visit * Reason Onset Date Comments Other 02/26/2011 Preventive Healt h Screening Encounter Details Date Type Department Care Team (Late st Contact Info) Description 02/26/2011 Telephone [facility] [address] [place] [address] [place] [address] [place] [address] Other (Preventive Health Screening) Social History Tobacco Use Types Packs/Day Years Used Date Smoking Tobacco: Former Smokeless Tobacco: Former Quit: 08/02/1961 Alcohol Use Standard Drinks/Week Comments Yes 0 (1 standard drink = 0.6 oz pur e alcohol) glass of wine daily Comments No Sex and Gender Information Value Date Recorded Sex Assigned at Not on file Legal Sex Female 4:58 AM SPORT INTERN Gender Identity Not on file Sexual Orientation Not on file documented as of this encounter Miscellaneous Notes * Telephone Encounter - Dianna Benítez - 02/26/2011 5:47 PM CDT Patient received letter indicating they are due for: Colonoscopy Screening. Patient indicates they had Colonoscopy done in [place] by Dr. Golden (ph. [phone]) in October 2008 and reports the results of the exam were normal. Routing to Clinic Strategic Advisor to update medical record. Thank you, Dianna Angel documented in this encounter Plan of Treatment Not on file documented as of this encounter Visit Diagnoses Not on filedocumented in this encounter Care Teams Apparel Rental Clerk Relationship Specialty [place] [address] [place] [address] PCP - General Internal Medicine 12/08/10 11/09/17 Abhi Weldon MD [facility] [address] [place] [address] PCP - General Emergency Medicine 11/10/17 [facility] [address] [place] [address] Assigned PCP 08/26/23 documented as of this encounter
--- OUTSIDE RECORDS SUMMARY | 2024-06-20 14:50 | XMS_ITS | Continuity of Care Document ---
Author Organization [facility] Address [address] [place] [address] Phone Care Team Providers Care Band Maker Name Role Phone Harley Jordan MD Unavailable [...] Available - Active Procedures Procedure Date Office/Outpatient Visit,[facility] Advance Directives Directive Yes / No Effective Date File Name No Information Encounters Encounter Description Practice Location Reason(s) For Visit Diagnoses Date Provider Providers Copied on Encounter [facility], [address], [place], [id number], [place] tel:[phone] [facility] [place] No Information Nikki Souza. [facility], [address] [place] [address], [facility] [address], [facility] [place], [id number] , [place]. tel:[phone] Office/Outpat ient Visit,[facility], [address], [place], [id number], [place] tel:[phone] [facility] [place] Spondylolisth esis, lumbar regionPain in lower leg Nikki Souza. [facility], [address], [address], [place], [place], [id number] , [place]. tel:[phone] Referring Provider: Abhi Weldon, [facility] [address] [place] [address], [address]. tel:[phone] Family History Family Member Type Diagnosis Age At Onset Problem (finding) Payers Payer name Insurance type Covered republican ID Authoriza tion(s) Medicare MB [id number] [facility] [address] [facility] [id number] Social History Type Description Quantity Date Captured [...]
--- OUTSIDE RECORDS SUMMARY | 2024-06-20 14:50 | XMS_ITS | Referral Summary ---
Author Organization [place] Address [address] [facility] [place] [address] Care Team Providers Care Garbage Collector Driver Name Role Phone Abhi Weldon MD Primary Care Provider [facility] Unavailable Allergies No [...] (XALATAN) 0.005 % ophthalmic solution 1 drop 6 Active minoxidil (ROGAINE) 2 % external [...] on file Legal Sex Female 4:58 AM SKIN CARE THERAPIST Gender Identity Not on file Sexual Orientation Not on file Last Filed Vital Signs Vital Sign Reading Time Taken Comments Blood Pressure 150/68 11/10/2017 6:53 PM CDT Pulse 70 11/10/2017 6:53 PM CDT Temperature 36.7 C (98 F) 11/10/2017 6:53 PM CDT Respiratory Rate 18 07/23/2011 3:47 PM SKIN CARE THERAPIST Oxygen Saturation 97% 11/10/2017 6:53 PM CDT Inhaled Oxygen Concentration - - Weight 72.6 kg (160 lb) 11/10/2017 6:53 PM CDT Height 165.1 cm (5' 5) 07/23/2011 3:47 PM SKIN CARE THERAPIST Body Mass Index 26.63 07/23/2011 3:47 PM SKIN CARE THERAPIST Plan of Treatment Not on file Procedures [...] CDT) Cholesterol 198 0 - 200 mg/dL [facility] Comment: LDL Cholesterol is the primary guide to therapy. The NCEP recommends further evaluation of: patients with cholesterol greater than 200 mg/dL if additional risk factors are present, cholesterol greater than 240 mg/dL, triglycerides greater than 150 mg/dL, or HDL less than 40 mg/dL. Triglycerides 65 0 - 150 mg/dL [facility] HDL Cholesterol 78 50 - 110 mg/dL [facility] LDL Cholesterol Calculated 107 0 - 129 mg/dL [facility] Comment: LDL Cholesterol is the primary guide to therapy: LDL-cholesterol goal in high risk patients is <100 mg/dL and in very high risk patients is <70 mg/dL. VLDL-Cholesterol 13 0 - 30 mg/dL [facility] Cholesterol/HDL Ratio 2.5 0.0 - 5.0 [facility] Blood specimen (specimen) 12/14/2011 1:32 PM CDT 12/14/2011 1:33 PM CDT us Sadie Redman MD LAB - BLOOD ORDERABLES Fi nal Result [facility] [address] [facility] [place] [address] * Mammo Screening digital (bilat) (03/26/2011 9:45 [...] Recently Relevant to Health Maintenance Insurance MEDICARE BCBS OUT OF STATE Care Teams Garbage Collector Driver Relationship Specialty Start Date End Date Abhi Weldon MD [facility] [address] [place] [address] PCP - General Emergency Medicine 11/10/17 Clinic - [address] [place] [address] Assigned PCP 08/26/23
== END 2024-06-20 14:49 | disposition home or self-care (01) ==
LOC: FRMREF 14:48
PROVIDERS: PCP Internal Medicine; Visit Provider Physician Assistant Medical
DX: R10.31 Right lower quadrant pain (principal); N39.0 Urinary tract infection, site not specified
CPT/HCPCS: 80053; 87086

== ENCOUNTER 2024-06-23 15:35 | Outpatient (CLI) | payer MEDICARE, BC, SELFPAY ==
--- OUTSIDE RECORDS SUMMARY | 2024-06-23 15:39 | XMS_ITS | Clinical Summary ---
Author Organization [facility] Address [place], [place] [address] Care Team Providers Care Electric Distribution Engineer Name Role Phone Abhi Weldon MD [...] mg) by mouth once daily. Please call [phone] 2 months in advance to schedule an [...] Name Administration Dates Next Due COVID-19 vaccine (Mixers NTKapta 30mcg/0.3mL) PF, MDV 01/10/2021,11/02/2020 Influenza Virus, Unspecified [...] CDT Respiratory Rate 16 10/06/2021 3:07 PM NATIONAL SECRETARY Oxygen Saturation 96% 11/09/2023 9:26 AM CDT Inhaled Oxygen Concentration - - Weight 76.7 kg (169 lb 3.2 oz) 11/09/2023 9:26 A M CDT Height 165.1 cm (5' 5) 10/01/2022 2:41 PM NATIONAL SECRETARY Body Mass Index 28.16 10/01/2022 2:41 PM NATIONAL SECRETARY Plan of Treatment Health Maintenance Due Date [...] 8:14 AM 06/05/2016 12:40 PM Care Teams Electric Distribution Engineer Relationship Specialty Start Date End Date Abhi Weldon MD [address] [place] [address] PCP - General Emergency Medicine 05/19/16
--- OUTSIDE RECORDS SUMMARY | 2024-06-23 15:39 | XMS_ITS | Encounter Summary ---
Author Organization [place] Address [address] [place] [address]. [place] [address] Care Team Providers Care Log Chipper Operator Name Role Phone Abhi Weldon MD Primary Care Provider [facility] - [facility] [place] Unavailable Encounter Details Date Type Department Care Team (Late st Contact Info) Description 10/14/2023 MyC Medical Advice [place] [id number] [facility] [place] [address] [facility] [place] Social History Tobacco Use Types Packs/Day Years [...] on file Legal Sex Female 4:58 AM AGRICULTURAL EQUIPMENT SALES MANAGER Gender Identity Not on file Sexual Orientation Not on file documented as of this encounter Plan of Treatment Not on file documented as of this encounter Visit Diagnoses Not on filedocumented in this encounter Care Teams Log Chipper Operator Relationship Specialty Start Date End Date Abhi Weldon MD [facility] [address] [place] [address] PCP - General Emergency Medicine 11/10/17 [facility] Kory Burrell [facility] [address] [facility] [place] [address] Assigned PCP 08/26/23 documented as of this encounter
--- OUTSIDE RECORDS SUMMARY | 2024-06-23 15:39 | XMS_ITS | Data Portability ---
Author Organization [facility], [facility] Address [address] [place] [address] Care Team Providers Care Pole Setter Name Role Phone POPPY BARNARD Primary Care [...] None recorded. Lab urinalysis, dipstick 2019 020 [facility], [address] [facility], [place], [address], 0 10:44:37 Referral None recorded. Procedures None recorded. Surgeries None recorded. Imaging None recorded. Medication Orders desmopressi n 10 mcg/spray (0.1 mL) nasal spray (non-refrig erated) 2022 023 [id number], [address], [place], [address], 3 10:46:59 Patient TargetsNo targets recorded. Patient Instructions Encounter Date Encounter Id Patient Instructions Last Modified By Organization Details Last Modified Time 06/09/2022 [id number] Nocturia: We discussed potential etiologies including the [...] medical therapy. Not available 06/09/2022 09:56:53 09/01/2022 [id number] Nocturnal Polyur ia: She brought several voiding [...] Name Description Value Unit Range Abnormal Flag Note LastModifiedBy Organization Detail LastModifiedTime 07/01/20 20 07/01/2020 urina lysis , dipst ick color -advantus YELLOW yellow Not Available [facility] [address] [place] [address], [address], 07/01/2020 10:25:48 07/01/20 20 07/01/2020 urina lysis , dipst ick appearance -advantus CLEAR clear Not Available [facility] [address] [place] [address] [address], [place], [address], 07/01/2020 10:25:48 07/01/20 20 07/01/2020 urina lysis , dipst ick glucose -advantus NEGATI VE mg/dL negati ve Not Available [facility] [address] [place] [address] [address], [place], [address], 07/01/2020 10:25:48 07/01/20 20 07/01/2020 urina lysis , dipst ick bilirubin -advantus NEGATI VE negati ve Not Available [facility] [address] [place] [address], [place], [address], 07/01/2020 10:25:48 07/01/20 20 07/01/2020 urina lysis , dipst ick ketones -advantus NEGATI VE mg/dL negati ve Not Available [facility] [address] [place] [address], [place], [address], 07/01/2020 10:25:48 07/01/20 20 07/01/2020 urina lysis , dipst ick sp. gravity -advantus 1.020 1.010- 1.025 Not Available [facility] [address] [place] [address], [place], [address], 07/01/2020 10:25:48 07/01/20 20 07/01/2020 urina lysis , dipst ick pH -advantus 7.0 5.0-8. 0 Not Available [facility] [address] [place] [address], [place], [address], 07/01/2020 10:25:48 07/01/20 20 07/01/2020 urina lysis , dipst ick protein -advantus 30 mg/dL negati ve abnormal Not Available [facility] [address] [place] [address], [place], [address], 07/01/2020 10:25:48 07/01/20 20 07/01/2020 urina lysis , dipst ick urobilinogen -advantus 0.2 normal Not Available [facility] [address] [place] [address], [place], [address], 07/01/2020 10:25:48 07/01/20 20 07/01/2020 urina lysis , dipst ick nitrites -advantus NEGATI VE negati ve Not Available [facility] [address] [place] [address], [place], [address], 07/01/2020 10:25:48 07/01/20 20 07/01/2020 urina lysis , dipst ick blood -advantus TRACE- INTACT negati ve abnormal Not Available [facility] [address] [facility] [address], [place], [address], 07/01/2020 10:25:48 07/01/20 20 07/01/2020 urina lysis , dipst ick leukocytes -advantus TRACE negati ve abnormal Not Available [facility] [place] [facility] [address] [facility] [address], [place], [address], 07/01/2020 10:25:48 07/01/20 20 07/01/2020 urina lysis , dipst ick performed by TAYO Ty Not Available [facility] [place] [facility] [address] [facility] [address], [place], [address], 07/01/2020 10:25:48 07/01/20 20 07/01/2020 urina lysis , dipst ick total urine volume (mL) 10CC /mL ----- ----- ----- ----- ----- ----- ----- ----- ----- ----- ----- ----- ----- ----- ---- *Plekandi paul note the follo wing minim um quant ities for addit ional urine testi ng: - Atypi cals: 3 mL - Cytol ogy: 20 mL - GC/CH : 2 mL - FISH: 30 mL - Atypi cals w/ GC/CH : 5 mL - Cytol ogy PLUS FISH: 50 mL - Urine Cultu re: 3 mL ----- ----- ----- ----- ----- ----- ----- ----- ----- ----- ----- ----- ----- ----- ---- Not Available [place] [facility] [address] [facility] [address], [place], [address], 07/01/2020 10:25:48 07/01/20 20 07/01/2020 urina lysis , micro scopi c U-WBC 2 - 5 [hpf] 0 - 2 abnormal Not Available [facility] [address] [place] [address], [place], [address], 07/01/2020 10:25:50 07/01/20 20 07/01/2020 urina lysis , micro scopi c U-RBC 0 - 2 [hpf] 0 - 2 Not Available [facility] [address] [place] [address] [address], [place], [address], 07/01/2020 10:25:50 07/01/20 20 07/01/2020 urina lysis , micro scopi c bacteria SMALL [hpf] negati ve abnormal Not Available [facility] [address] [place] [address], [place], [address], 07/01/2020 10:25:50 07/01/20 20 07/01/2020 urina lysis , micro scopi c squamous epi SMALL /lpf negati ve,sma ll Not Available [facility] [address] [place] [address], [place], [address], 07/01/2020 10:25:50 07/01/20 20 07/01/2020 urina lysis , micro scopi c mucus PRESEN T [hpf] not presen t abnormal Not Available [facility] [address] [place] [address], [place], [address], 07/01/2020 10:25:50 07/01/20 20 07/01/2020 urina lysis , micro scopi c hyaline cast 0 - 5 [hpf] 0 - 5 Not Available [facility] [address] [place] [address], [place], [address], 07/01/2020 10:25:50 07/01/20 20 07/01/2020 urina lysis , micro scopi c yeast SMALL /hpf negati ve abnormal Not Available [facility] [address] [place] [address], [place], [address], 07/01/2020 10:25:50 07/01/20 20 07/01/2020 cultu re, urine final report MICROB IOLOGY RESULT S SOURC E Void KNOWN MANJINDER KNAPP see chart TREAT MENT see chart MEDIA PLATE D AT: Media plate d on 07/01 @ 9:52 AM RESUL T No Growt h Not Available [facility] [address] [place] [address], [place], [address], 07/03/2020 17:24:27 07/30/20 20 07/30/2020 urina lysis , dipst ick color -advantus YELLOW yellow Not Available [facility] [address] [place] [address], [place], [address], 07/30/2020 10:44:37 07/30/20 20 07/30/2020 urina lysis , dipst ick appearance -advantus CLEAR clear Not Available [facility] [address] [place] [address], [place], [address], 07/30/2020 10:44:37 07/30/20 20 07/30/2020 urina lysis , dipst ick glucose -advantus NEGATI VE mg/dL negati ve Not Available [facility] [address] [place] [address], [place], [address], 07/30/2020 10:44:37 07/30/20 20 07/30/2020 urina lysis , dipst ick bilirubin -advantus NEGATI VE negati ve Not Available [facility] [address] [place] [address], [place], [address], 07/30/2020 10:44:37 07/30/20 20 07/30/2020 urina lysis , dipst ick ketones -advantus NEGATI VE mg/dL negati ve Not Available [facility] [address] [place] [address], [place], [address], 07/30/2020 10:44:37 07/30/20 20 07/30/2020 urina lysis , dipst ick sp. gravity -advantus 1.010 1.010- 1.025 Not Available [facility] [address] [place] [address], [place], [address], 07/30/2020 10:44:37 07/30/20 20 07/30/2020 urina lysis , dipst ick pH -advantus 7.5 5.0-8. 0 Not Available [facility] [address] [place] [address], [place], [address], 07/30/2020 10:44:37 07/30/20 20 07/30/2020 urina lysis , dipst ick protein -advantus TRACE mg/dL negati ve abnormal Not Available [facility] [address] [place] [address], [place], [address], 07/30/2020 10:44:37 07/30/20 20 07/30/2020 urina lysis , dipst ick urobilinogen -advantus 0.2 normal Not Available [facility] [address] [place] [address], [place], [address], 07/30/2020 10:44:37 07/30/20 20 07/30/2020 urina lysis , dipst ick nitrites -advantus NEGATI VE negati ve Not Available [facility] [address] [place] [address], [place], [address], 07/30/2020 10:44:37 07/30/20 20 07/30/2020 urina lysis , dipst ick blood -advantus TRACE- INTACT negati ve abnormal Not Available [facility] [address] [place] [address], [place], [address], 07/30/2020 10:44:37 07/30/20 20 07/30/2020 urina lysis , dipst ick leukocytes -advantus TRACE negati ve abnormal Not Available [facility] [address] [place] [address], [place], [address], 07/30/2020 10:44:37 07/30/20 20 07/30/2020 urina lysis , dipst ick performed by ALANA Garrett Not Available [facility] [address] [facility] [address], [place], [address], 07/30/2020 10:44:37 07/30/20 20 07/30/2020 urina lysis , dipst ick total urine volume (mL) 5CC /mL ----- ----- ----- ----- ----- ----- ----- ----- ----- ----- ----- ----- ----- ----- ---- *Brian paul note the follo wing minim um quant ities for addit ional urine testi ng: - Atypi cals: 3 mL - Cytol ogy: 20 mL - GC/CH : 2 mL - FISH: 30 mL - Atypi cals w/ GC/CH : 5 mL - Cytol ogy PLUS FISH: 50 mL - Urine Cultu re: 3 mL ----- ----- ----- ----- ----- ----- ----- ----- ----- ----- ----- ----- ----- ----- ---- Not Available [facility] [address] [facility] [address], [place], [address], 07/30/2020 10:44:37 07/30/20 20 07/30/2020 urina lysis , micro scopi c U-WBC 0 - 2 [hpf] 0 - 2 Not Available [facility] [address] [facility] [address], [place], [address], 07/30/2020 10:44:42 07/30/20 20 07/30/2020 urina lysis , micro scopi c U-RBC 0 - 2 [hpf] 0 - 2 Not Available [facility] [address] [facility] [address], [place], [address], 07/30/2020 10:44:42 07/30/20 20 07/30/2020 urina lysis , micro scopi c bacteria SMALL [hpf] negati ve abnormal Not Available [facility] [address] [place] [address], [place], [address], 07/30/2020 10:44:42 07/30/20 20 07/30/2020 urina lysis , micro scopi c squamous epi SMALL /lpf negati ve,sma ll Not Available [facility] [address] [place] [address], [place], [address], 07/30/2020 10:44:42 07/30/20 20 07/30/2020 urina lysis , micro scopi c hyaline cast 0 - 5 [hpf] 0 - 5 Not Available [facility] [address] [place] [address], [place], [address], 07/30/2020 10:44:42 01/15/20 21 01/14/2021 urina lysis , dipst ick color -advantus YELLOW yellow Not Available [facility] [address] [place] [address], [place], [address], 01/14/2021 09:40:41 01/15/20 21 01/14/2021 urina lysis , dipst ick appearance -advantus CLEAR clear Not Available [facility] [address] [place] [address], [place], [address], 01/14/2021 09:40:41 01/15/20 21 01/14/2021 urina lysis , dipst ick glucose -advantus NEGATI VE mg/dL negati ve Not Available [facility] [address] [place] [address], [place], [address], 01/14/2021 09:40:41 01/15/20 21 01/14/2021 urina lysis , dipst ick bilirubin -advantus NEGATI VE negati ve Not Available [facility] [address] [place] [address], [place], [address], 01/14/2021 09:40:41 01/15/20 21 01/14/2021 urina lysis , dipst ick ketones -advantus NEGATI VE mg/dL negati ve Not Available [facility] [address] [place] [address], [place], [address], 01/14/2021 09:40:41 01/15/20 21 01/14/2021 urina lysis , dipst ick sp. gravity -advantus 1.010 1.010- 1.025 Not Available [facility] [address] [place] [address], [place], [address], 01/14/2021 09:40:41 01/15/20 21 01/14/2021 urina lysis , dipst ick pH -advantus 7.0 5.0-8. 0 Not Available [facility] [address] [place] [address], [place], [address], 01/14/2021 09:40:41 01/15/20 21 01/14/2021 urina lysis , dipst ick protein -advantus NEGATI VE mg/dL negati ve Not Available [facility] [address] [place] [address], [place], [address], 01/14/2021 09:40:41 01/15/20 21 01/14/2021 urina lysis , dipst ick urobilinogen -advantus 0.2 normal Not Available [facility] [address] [place] [address], [place], [address], 01/14/2021 09:40:41 01/15/20 21 01/14/2021 urina lysis , dipst ick nitrites -advantus NEGATI VE negati ve Not Available [facility] [address] [place] [address], [place], [address], 01/14/2021 09:40:41 01/15/20 21 01/14/2021 urina lysis , dipst ick blood -advantus NEGATI VE negati ve Not Available [facility] [address] [facility] [address], [place], [address], 01/14/2021 09:40:41 01/15/20 21 01/14/2021 urina lysis , dipst ick leukocytes -advantus TRACE negati ve abnormal Not Available [facility] [address] [facility] [address], [place], [address], 01/14/2021 09:40:41 01/15/20 21 01/14/2021 urina lysis , dipst ick performed by ALANA Garrett Not Available [facility] [address] [facility] [address], [place], [address], 01/14/2021 09:40:41 01/15/20 21 01/14/2021 urina lysis , dipst ick total urine volume (mL) 10 /mL ----- ----- ----- ----- ----- ----- ----- ----- ----- ----- ----- ----- ----- ----- ---- *Plekandi se note the follo wing minim um quant ities for addit ional urine testi ng: - Atypi cals: 3 mL - Cytol ogy: 20 mL - GC/CH : 2 mL - FISH: 30 mL - Atypi cals w/ GC/CH : 5 mL - Cytol ogy PLUS FISH: 50 mL - Urine Cultu re: 3 mL ----- ----- ----- ----- ----- ----- ----- ----- ----- ----- ----- ----- ----- ----- ---- Not Available [facility] [address] [facility] [address], [place], [address], 01/14/2021 09:40:41 01/15/20 21 01/14/2021 urina lysis , micro scopi c U-WBC 0 - 2 [hpf] 0 - 2 Not Available [facility] [address] [facility] [address], [place], [address], 01/14/2021 09:40:45 01/15/20 21 01/14/2021 urina lysis , micro scopi c U-RBC 0 - 2 [hpf] 0 - 2 Not Available [facility] [address] [facility] [address], [place], [address], 01/14/2021 09:40:45 01/15/20 21 01/14/2021 urina lysis , micro scopi c bacteria SMALL [hpf] negati ve abnormal Not Available [facility] [address] [facility] [address], [place], [address], 01/14/2021 09:40:45 01/15/20 21 01/14/2021 urina lysis , micro scopi c squamous epi SMALL /lpf negati ve,sma ll Not Available [facility] [address] [facility] [address], [place], [address], 01/14/2021 09:40:45 Result Notes None recorded. Procedures Surgical History Date Name Laterality Status Provider Name and Address Organization Details Recorded Time 07/30/20 Bladder Scan completed Navya Matthew [facility] 07/30/2020 10:20:38 07/01/20 20 Cystoscopy- female completed Trav Oshea MD [address] [facility], [place], [address], [facility] 07/01/2020 10:48:25 08/02/19 14 Diagnostic colonoscopy [...] mcg/spray (0.1 mL) nasal spray (non-refr igerated) [place] 0.1 mL twice a day by intranas [...] x 4)/0.5mL IM syringe INFLUENZ A VACCINE , ADMINIST ERED IM ARM _LOT____ __ROUTE IM 07/01 completed Not Available Not Available Not Available Vitals Date Recorded Body weight Body height Body mass index (BMI) Provider Name and Address Organization Details Last Updated DateTime 06/09/2022 41908.43255 07097 g 162.56 cm 28.8 kg/m2 Not Available Health Note 06/09/2022 08:55:31 Date Recorded Body weight Body height Body mass index (BMI) Provider Name and Address Organization Details Last Updated DateTime 06/30/2022 28798.84899 09843 g 165.1 cm 26.6 kg/m2 Not Available Health Note 06/30/2022 08:46:24 Date Recorded Body height Body weight Body mass index (BMI) Provider Name and Address Organization Details Last Updated DateTime 09/01/2022 162.56 cm 76274.45872 39211 g 28.3 kg/m2 Not Available Health Note 09/01/2022 08:20:38 Date Recorded Body height Provider Name an d Address Organization Details Last Updated DateTime 07/30/2020 165.1 cm Navya Matthew [place] - [place] [facility] 07/30/2020 10:17:09 Date Recorded Body height Body mass index (BMI) Body weight Provider Name and Address Organization Details Last Updated DateTime 01/14/2021 165.1 cm 27.5 kg/m2 17176.74 g Polly [facility] 01/14/2021 09:22:31 Social History Question Answer [...] available 06/07/2022 Have You Traveled Outside Of [place] In The Past 30 Days? No [email or web address] Information not available 06/07/2022 Ethnicity Not /Latin o [email or web address] Information not available 07/01/2020 Preferred Language Honduran Information not available 07/01/2020 What Was The [...] History Nothing Reported. Medical History Condition Response Diabetes N Sexually Transmitted Infection N Bleeding Disorder N High Blood Pressure Y Kidney Stones N Cancer Y Depression N Lung Disease N High Cholesterol Y GERD/Acid Reflux N Heart Disease N Gynecological HistoryNo gynecological history recorded. Obstetrics History GPAL:G 0 P 0 0 0 0 Immunizations Vaccine Type Date Status Provider Name and Address Organization Details Recorded Time SARS-COV-2 (COVID-19) vaccine, UNSPECIFIED 10/24/2021 completed Jc Meath null, [facility] 04/06/2023 11:14:54 SARS-COV-2 (COVID-19) vaccine, UNSPECIFIED 10/24/2021 completed Jc Meath null, [facility] 04/06/2023 11:14:54 SARS-COV-2 (COVID-19) vaccine, UNSPECIFIED 11/09/2021 completed [facility] null, [facility] 04/06/2023 11:14:54 Pneumococcal conjugate PCV 13 03/28/2015 completed Jc Meath null, [facility] 04/06/2023 11:14:44 pneumococcal polysaccharide PPV23 06/06/2016 completed Jc Meath null, [facility] 04/06/2023 11:14:43 pneumococcal polysaccharide PPV23 03/16/2018 completed Jc Meath null, [facility] 04/06/2023 11:14:43 zoster recombinant 03/16/2018 completed Jc Meath null, [facility] 04/06/2023 11:14:43 Influenza, adjuvanted, quadrivalent, PF 04/23/2020 completed Jc Meath null, [facility] 04/06/2023 11:14:43 COVID-19, mRNA, LNP-S, PF, 30 mcg/0.3 mL dose 11/02/2020 completed Jc Meath null, [facility] 04/06/2023 11:14:43 COVID-19, mRNA, LNP-S, PF, 30 mcg/0.3 mL dose 01/10/2021 completed Jc Meath null, [facility] 04/06/2023 11:14:43 COVID-19, mRNA, LNP-S, PF, 30 mcg/0.3 mL dose, marilin-sucrose 10/25/2021 completed Jc Meath null, [facility] 04/06/2023 11:14:43 Tdap 01/05/2012 completed Jc Meath null, [facility] 04/06/2023 11:14:43 Tdap 06/06/2016 completed Jc Meath null, [facility] 04/06/2023 11:14:44 zoster live 02/08/2015 completed Jc Meath null, [facility] 04/06/2023 11:14:44 Influenza, high-dose, trivalent, PF 04/22/2017 completed Jc Meath null, [facility] 04/06/2023 11:14:44 Influenza, high-dose, trivalent, PF 04/29/2016 completed Jc Meath null, [facility] 04/06/2023 11:14:44 Influenza, high-dose, trivalent, PF 05/01/2011 completed Jc Meath null, [facility] 04/06/2023 11:14:44 Influenza, high-dose, trivalent, PF 05/01/2014 completed Jc Meath null, [facility] 04/06/2023 11:14:44 Influenza, high-dose, trivalent, PF 05/02/2015 completed Jc Meath null, [facility] 04/06/2023 11:14:44 Influenza, high-dose, trivalent, PF 06/07/2019 completed Jc Meath null, [facility] 04/06/2023 11:14:44 Influenza, high-dose, trivalent, PF 06/08/2018 completed Jc Meath null, [facility] 04/06/2023 11:14:44 Influenza, split virus, trivalent, PF 04/21/2012 completed Jc Meath null, [facility] 04/06/2023 11:14:44 Influenza, split virus, trivalent, PF 06/01/2013 completed Jc Meath null, [facility] 04/06/2023 11:14:44 Past Encounters Encounter ID Performer Location Encounter Start Date Encounter Closed Date Diagnosis/Indication Diagnosis SNOMED-CT Code Diagnosis ICD10 Code [id number] MD Anai Camacho_[facility] [address] [place] [phone] 07/01/2020 09:40:04 07/01/2020 11:34:39 Overactive urinary bladder 884558814 N32.81 [id number] MD Anai Camacho_[facility] [address] [address] 07/30/2020 09:47:56 07/30/2020 12:06:17 Retention of urine 885718543 R33.9 Increased frequency of urination 793067279 R35.0 [id number] MD Anai [facility]acho_[facility] [address] [place] [phone] 01/14/2021 09:18:31 01/16/2021 09:48:47 Nocturia [id number] R35.1 [id number] Michael Lindsay [facility] [address] [place] [address] 06/09/2022 08:54:45 06/09/2022 10:49:01 Nocturia [id number] R35.1 [id number] Michael Lindsay [facility] [address] [place] [address] 06/30/2022 08:46:19 06/30/2022 14:24:52 [id number] Michael Lindsay MD [facility] [address] [place] [address] 09/01/2022 08:20:34 09/01/2022 11:30:02 Nocturia [id number] R35.1 Health Concerns Section Related Observation LastModified by Organization Detai ls LastModified Time None Recorded Concern Status LastModified by Organization Details LastModified Time None Recorded Advance Directives Directive None Recorded Payers Encounter Date Sequence Insurance Name Policy Number Policy Machado Covered Member ID Machado Member ID Guarantor Name 07/30/2020 2 [place] [id number] Mariana A Lambert [id number] Khushbu Lambert 07/30/2020 1 [place] [employer] Khushbu Lambert [id number] Khushbu Lambert 01/14/2021 2 [place] [id number] Mariana Valerio Lambert [id number] Khushbu Lambert 01/14/2021 1 [place] [employer] Khushbu Lambert [id number] Khushbu Lambert 06/09/2022 1 [place] [employer] Khushbu Lambert [id number] Khushbu Lambert 06/09/2022 2 [place] (MEDICARE SUPPLE[place]) [id number] Khushbu Lambert [id number] Khushbu Lambert 06/30/2022 1 [place] [employer] Khushbu Lambert [id number] Khushbu Lambert 06/30/2022 2 [place] F (MEDICARE SUPPLEMENT) [id number] Khushbu Lambert [id number] Khushbu Lambert 09/01/2022 1 [place] [employer] Khushbu Lambert [id number] Khushbu Lambert 09/01/2022 2 [place] F (MEDICARE SUPPLEMENT) [id number] Khushbu Lambert [id number] [address] [address] Notes Date Note Type Note Provider Name and Address Organization Details Recorded Time 07/30/2020 text/html frequency and nocturia. oxybutynin trial. helpful for frequency. tolerating medication. no dry mouth or dry eyes. Trav Oshea MD [address] [place] [address],[address], [address], [facility] 07/30/2020 10:53:40 01/14/2021 text/html nocturia. 3-4 ti mes at night. oxybutynin. Reports no problems during the day. The oxybutynin was effective initially but now no longer is. Trav Oshea MD [address] [place] [address],[address], [address], [facility] 01/14/2021 15:28:10 06/09/2022 text/html This is an 82 ye ar old female who is here for the ongoing management of nocturia. She previously followed with my partner Dr. Oshea.She complains of nocturia x 3-4.She has previously utilized oxybutynin ER 5 mg daily and tolterodine 2 mg daily.She didn't find this helped.She denies a history of sleep apnea and [...] Impact Questionnaire (IIQ-7): [0] Ability to do throw out clerk (cooking, housecleaning): Not at All [0] Physical recreation such as walking, or other exercise: Not at All [1] Ability to attend entertainment activities (movie, concerts): Slightly [0] Ability to travel by car more than 30 minutes from home: Not at All [0] Participation in social activities outside your home: Not at All [0] Emotional health (nervousness, depression, etc): Not at All [2] [place] frustrated: Moderately Continence Function Questionnaire: [2] Urinary control: Occasional dribbling [2] Leaked urine: About once a week or less often [5] How big of a problem urinary function has been: Big problem Michael Lindsay MD [address] [facility],[address], [place], [address], [facility] 06/09/2022 09:57:21 09/01/2022 text/html This is an 82 ye ar old female who is here for the ongoing management of nocturia. She previously followed with my partner Dr. Oshea.She complains of nocturia x 3-4.She has previously utilized oxybutynin ER 5 mg daily and tolterodine 2 mg daily.She didn't find this helped.She denies a history of sleep apnea and does not snore.She completed a voiding diary before today visit which shows the followin06/10/2022:Total fluid intake: 3 litersFluid intake stops after 2100Daytime voided volume: 1.7 litersOvernight voided volume: 0.95 liters Overnight production: 35.8% 06/23/2022:Total fluid intake: 1.7 litersFluid intake stops after 2000Daytime voided volume: 1.1 litersOvernight voided volume: 0.8 liters Overnight production: 42% Michael Lindsay MD [address] [place] [address],[address], [address], [facility] 09/01/2022 10:47:38 OBGyn Episode No OBEpisode recorded.
--- OUTSIDE RECORDS SUMMARY | 2024-06-23 15:39 | XMS_ITS | Clinical Summary ---
Author Organization [place] Address [address] [facility] [address] Care Team Providers Care Membership Counselor Name Role Phone Abhi Weldon MD Primary Care Provider [facility] Unavailable Allergies No known active allergies [...] bring in a copy to clinic. 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 Gender Identity Not on file Sexual Orientation Not on file Last Filed Vital Signs Vital Sign Reading Time Taken Comments Blood Pressure 150/68 11/10/2017 6:53 PM CDT Pulse 70 11/10/2017 6:53 PM CDT Temperature 36.7 C (98 F) 11/10/2017 6:53 PM CDT Respiratory Rate 18 07/23/2011 3:47 PM SERICULTURIST Oxygen Saturation 97% 11/10/2017 6:53 PM CDT Inhaled Oxygen Concentration - - Weight 72.6 kg (160 lb) 11/10/2017 6:53 PM CDT Height 165.1 cm (5' 5) 07/23/2011 3:47 PM SERICULTURIST Body Mass Index 26.63 07/23/2011 3:47 PM SERICULTURIST Plan of Treatment Health Maintenance Due Date [...] 10/25/2021, 01/10/2021, 11/02/2020 INFLUENZA VACCINE (#1) 2024 0, 06/07/2019, 06/08/2018, Additional history exists DEXA 07/29/2025 [...] 200 mg/dL [facility] [place] Comment: LDL Cholesterol is the primary guide to therapy. The NCEP recommends further evaluation of: patients with cholesterol greater than 200 mg/dL if additional risk factors are present, cholesterol greater than 240 mg/dL, triglycerides greater than 150 mg/dL, or HDL less than 40 mg/dL. Triglycerides 65 0 - 150 mg/dL [facility] HDL Cholesterol 78 50 - 110 mg/dL [facility] LDL Cholesterol Calculated 107 0 - 129 mg/dL [facility] Comment: LDL Cholesterol is the primary guide to therapy: LDL-cholesterol goal in high risk patients is <100 mg/dL and in very high risk patients is <70 mg/dL. VLDL-Cholesterol 13 0 - 30 mg/dL [facility] Cholesterol/HDL Ratio 2.5 0.0 - 5.0 [facility] Blood specimen (specimen) 12/14/2011 1:32 PM CDT 12/14/2011 1:33 PM CDT Sadie Redman MD LAB - BLOOD ORDERABLES Fi nal Result [facility] [address] [facility] [place] [id number] * Mammo Screening digital (bilat) (03/26/2011 9:45 [...] suspicion for malignancy. IMPRESSION: BI-RADS 1, NEGATIVE. Result [facility] Sadie Redman MD IMG MAMMOGRAPHY ORDERABLE S Edited * Dexa hip/pelvis/spine* (07/29/2010) Anatomical Region Laterality Modality Dexa Other Result [facility] Sadie Redman MD IMG DEXA ORDERABLES Final Result from Last 3 Months or Most Recently Relevant to Health Maintenance Insurance MEDICARE BCBS OUT OF STATE Care Teams Membership Counselor Relationship Specialty Start Date End Date Abhi Weldon MD [facility] [address] [place] [address] PCP - General Emergency Medicine 11/10/17 Clinic - [address] [place] [address] Assigned PCP 08/26/23
--- OUTSIDE RECORDS SUMMARY | 2024-06-23 15:39 | XMS_ITS | Encounter Summary ---
Author Organization [place] Address [address] [place] [address]. 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 Nothing further needed. Ailyn Lemus RN, BSN [facility] MON[facility] * Telephone Encounter - Fern Duarte RN - 06/21/2024 10:33 AM POWDER MONKEY The paperwork said it was an outside imaging referral. It said it was for a CT ab and pelvis. Called [facility]. [phone] as we don't do CT's here and the pt has not been seen here. Spoke to Jose. She said the pt was referred from the [facility] and transferred me to the [facility]. Spoke to Hilaria. She said Sharon in there referrals team wrote a note that said that [facility] does not do CT scans and placed a referral for [facility] for the CT. She said we can likely just shred this paperwork. ER MONKEY * Telephone Encounter - Zulema Jiang - 06/21/2024 10:26 AM CST Tried to get a hold of patient to talk. No answer, LVMTCB. Seems like this fax was sent to by mistake. Talked to Nurse Rosario and she said she would contact [facility] to see what is going on. Routing to nurses. Zulema Jiang MA ER MONKEY * Telephone Encounter - Perla La APRN CNP - 06/21/2024 10:15 AM CST Pt does not have a PCP at . Will need an appt. Would recommend quill layer. Perla La CNP ER MON[facility] * Telephone Encounter - Zulema Jiang - 06/21/2024 10:07 AM CST Fax was received today from [facility]. Told to call patient REECE to schedule. States that patient has had abdominal pain since 4 AM today. After review, it seems to be a outsideimaging referral for CT of abdomen and pelvis Papers have encounter at hospital from 06/20/24. Given to POD. Zulema Jiang MA ER [facility] documented in this encounter Plan of Treatment Not on file documented as of this encounter Visit Diagnoses Not on filedocumented in this encounter Care Teams Line Person Relationship Specialty Start Date End Date Abhi Weldon MD [facility] [address] [place] [address] PCP - General Emergency Medicine 11/10/17 [facility] - [address] [place] [address] Assigned PCP 08/26/23 documented as of this encounter
--- OUTSIDE RECORDS SUMMARY | 2024-06-23 15:39 | XMS_ITS | Continuity of Care Document ---
Author Organization [facility] Address [address] [place] [address] Phone Care Team Providers Care Car Repairer Pullman Name Role Phone Harley Jordan MD Unavailable [...] Available - Active Procedures Procedure Date Office/Outpatient Visit,[facility] 2015 Advance Directives Directive Yes / No Effective Date File Name No Information Encounters Encounter Description Practice Location Reason(s) For Visit Diagnoses Date Provider Providers Copied on Encounter [facility], [address], [place], [id number], [place] tel:[phone] [facility] [place] No Information Nikki Souza. [facility], [address] [place] [address], [facility] [address], [facility] [place] [place], [id number] , [place]. tel:[phone] Office/Outpat ient Visit,[facility], [address], [place], [id number], [place] tel:[phone] [facility] [place] Spondylolisth esis, lumbar regionPain in lower leg Nikki Souza. [facility], [address], [address], [place], [place], [id number] , [place]. tel:[phone] Referring Provider: Abhi Weldon, [facility] [address] [place] [address], [address]. tel:[phone] Family History Family Member Type Diagnosis Age At Onset Problem (finding) Payers Payer name Insurance type Covered alliance party ID Authoriza tion(s) Medicare MB [id number] [facility] [id number] [facility] [id number] Social History Type Description Quantity Date Captured [...]
--- OUTSIDE RECORDS SUMMARY | 2024-06-23 15:39 | XMS_ITS | Encounter Summary ---
Author Organization [place] Address [facility] [place] [address] Care Team Providers Care Automobile Technician Name Role Phone Sadie Redman MD Primary Care Provider [phone] Abhi Weldon MD Primary Care Provider [facility] Unavailable Encounter Details Date Type Department Care Team (Late st Contact Info) Description 10/29/2011 MyC Medical Advice Initial Department [facility] Social History Tobacco Use Types Packs/Day Years Used Date Smoking Tobacco: Former Smokeless Tobacco: Former Quit: 08/02/1961 Alcohol Use Standard Drinks/Week Comments Yes 0 (1 standard drink = 0.6 oz pur e alcohol) glass of wine daily Comments No Sex and Gender Information Value Date Recorded Sex Assigned at Not on file 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
--- OUTSIDE RECORDS SUMMARY | 2024-06-23 15:39 | XMS_ITS | Referral Summary ---
Author Organization [place] Address [address] [facility] 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 Gender Identity Not on file Sexual Orientation Not on file Last Filed Vital Signs Vital Sign Reading Time Taken Comments Blood Pressure 150/68 11/10/2017 6:53 PM CDT Pulse 70 11/10/2017 6:53 PM CDT Temperature 36.7 C (98 F) 11/10/2017 6:53 PM CDT Respiratory Rate 18 07/23/2011 3:47 PM LEVEL GLASS FORMING MACHINE OPERATOR Oxygen Saturation 97% 11/10/2017 6:53 PM CDT Inhaled Oxygen Concentration - - Weight 72.6 kg (160 lb) 11/10/2017 6:53 PM CDT Height 165.1 cm (5' 5) 07/23/2011 3:47 PM LEVEL GLASS FORMING MACHINE OPERATOR Body Mass Index 26.63 07/23/2011 3:47 PM LEVEL GLASS FORMING MACHINE OPERATOR Plan of Treatment Not on file Procedures [...] CDT) Cholesterol 198 0 - 200 mg/dL [facility] Comment: LDL Cholesterol is the primary guide to therapy. The NCEP recommends further evaluation of: patients with cholesterol greater than 200 mg/dL if additional risk factors are present, cholesterol greater than 240 mg/dL, triglycerides greater than 150 mg/dL, or HDL less than 40 mg/dL. Triglycerides 65 0 - 150 mg/dL [facility] HDL Cholesterol 78 50 - 110 mg/dL [facility] LDL Cholesterol Calculated 107 0 - 129 mg/dL [facility] Comment: LDL Cholesterol is the primary guide to therapy: LDL-cholesterol goal in high risk patients is <100 mg/dL and in very high risk patients is <70 mg/dL. VLDL-Cholesterol 13 0 - 30 mg/dL [facility] Cholesterol/HDL Ratio 2.5 0.0 - 5.0 [facility] Blood specimen (specimen) 12/14/2011 1:32 PM CDT 12/14/2011 1:33 PM CDT Sadie Redman MD LAB - BLOOD ORDERABLES Fi nal Result [facility] [address] [place] [address] * Mammo Screening digital (bilat) (03/26/2011 [...] suspicion for malignancy. IMPRESSION: BI-RADS 1, NEGATIVE. Sadie Redman MD IMG MAMMOGRAPHY ORDERABLE S Edited * Dexa hip/pelvis/spine* (07/29/2010) Anatomical Region Laterality Modality Dexa Other Sadie Redman MD IMG DEXA ORDERABLES Final Result from Last 3 Months or Most Recently Relevant to Health Maintenance Insurance MEDICARE [facility] OUT OF STATE Care Teams Driveway Attendant Relationship Specialty Start Date End Date Abhi Weldon MD [facility] [address] [place] [address] PCP - General Emergency Medicine 11/10/17 Clinic - K[facility] Burrell [facility] [id number] [place] [address] [place] [address] Assigned PCP 08/26/23
--- OUTSIDE RECORDS SUMMARY | 2024-06-23 15:39 | XMS_ITS | Encounter Summary ---
Author Organization [place] Address [facility] [place] [address] Care Team Providers Care Neuropathologist Name Role Phone Sadie Redman MD Primary Care Provider [phone] Abhi Weldon MD Primary Care Provider Clinic - [facility] Unavailable Reason for Visit * Reason Onset Date Comments Other 02/26/2011 Preventive Healt h Screening Encounter Details Date Type Department Care Team (Late st Contact Info) Description 02/26/2011 Telephone [facility] [address] [place] [address] [place] [address] [place] [address] Other (Preventive Health Screening) Social History Tobacco Use Types Packs/Day Years Used Date Smoking Tobacco: Former Smokeless Tobacco: Former Quit: 08/02/1961 Alcohol Use Standard Drinks/Week Comments Yes 0 (1 standard drink = 0.6 oz pur e alcohol) glass of wine daily Comments No Sex and Gender Information Value Date Recorded Sex Assigned at Not on file 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 Patient indicates they had Colonoscopy done in [place] by Dr. Golden (ph. [phone]) in October 2008 and reports the results of the exam were normal. Routing to [facility] to update medical record. Thank you, Dianna Angel documented in this encounter Plan of Treatment Not on file documented as of this encounter Visit Diagnoses Not on filedocumented in this encounter Care Teams Neuropathologist Relationship Specialty [place] [address] [place] [address] PCP - General Internal Medicine 12/08/10 11/09/17 Abhi Weldon MD [facility] [address] [place] [address] PCP - General Emergency Medicine 11/10/17 [facility] [address] [place] [address] Assigned PCP 08/26/23 documented as of this encounter
--- NOTE | 2024-06-23 16:00 | CRLHL7_ITS ---
For Patients: As a result of the Century Cures Act, medical imaging exams and procedure reports are released immediately into your electronic medical record. You may view this report before your referring provider. If you have questions, please contact your health care provider. INDICATION: Right lower quadrant pain TECHNIQUE: Volumetric helical scanning of the abdomen and pelvis was performed without contrast material. Coronal and sagittal reconstructions were obtained. COMPARISON: Abdomen/pelvis CT of 06/21/2014 FINDINGS: On images 67-80 of series 2, edema is demonstrated along the posterior aspect of the mid transverse colon. This is suspected to be secondary to epiploic appendagitis or mesenteric infarct. No bowel wall thickening, pneumatosis, free fluid or free air is apparent. The appendix is not identified with certainty. Sigmoid diverticulosis is noted but there is no evidence of diverticulitis. The liver is normal in size, shape and attenuation. Postop changes of cholecystectomy are again noted. The bile ducts are within normal limits. The spleen, adrenal glands and pancreas are negative. The kidneys are unremarkable except for a 2 mm left renal collecting system stone and a roughly 1 cm right renal parenchymal cyst. No lymphadenopathy is evident. No free fluid is demonstrated. Postop changes of hysterectomy are again demonstrated. Interval left inguinal postop changes are demonstrated. The lung bases are essentially clear, and heart size is normal. IMPRESSION: 1. 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 2. Sigmoid diverticulosis but no evidence of diverticulitis. 3. Post cholecystectomy, hysterectomy and interval left inguinal postop changes. 4. 2 mm left renal collecting system stone and 1 cm right renal cyst. Please note that all CT scans at this facility use dose modulation, iterative reconstruction, and/or weight-based dosing when appropriate to reduce radiation dose to as low as reasonably achievable. Dictated by Kirill Sinha MD @ 06/26/2024 8:01:34 AM (Electronically Signed)
== END 2024-06-23 15:36 | disposition home or self-care (01) ==
PROVIDERS: PCP Internal Medicine; Visit Provider Physician Assistant Medical
DX: R10.31 Right lower quadrant pain (principal); K63.89 Other specified diseases of intestine; K57.30 Diverticulosis of large intestine without perforation or abscess without bleeding; N28.1 Cyst of kidney, acquired
CPT/HCPCS: 74176

== ENCOUNTER 2025-06-29 10:01 | Outpatient (CLI) | payer MEDICARE, BC, SELFPAY ==
--- NOTE | 2025-06-29 10:15 | CRLHL7_ITS ---
For Patients: As a result of the Century Cures Act, medical imaging exams and procedure reports are released immediately into your electronic medical record. You may view this report before your referring provider. If you have questions, please contact your health care provider. INDICATION: BILATERAL SCREENING MAMMOGRAM, ASYMPTOMATIC 85 Y/O FEMALE COMPARISON: 06/30/2023, 12/01/2021, 10/26/2018 TECHNIQUE: Digital mammogram in CC and MLO projections including computer-aided detection (CAD) and tomosynthesis. BREAST COMPOSITION: There are scattered areas of fibroglandular density. FINDINGS: No suspicious findings. ASSESSMENT: BI-RADS 2 Benign RECOMMENDATION: Annual screening mammogram. A lay language report of this examination will be provided to the patient. Dictated by: Rene Stark MD @ 07/02/2025 12:08:19 (Electronically Signed)
== END 2025-06-29 10:02 | disposition home or self-care (01) ==
LOC: MAMMO 10:01
PROVIDERS: PCP Internal Medicine; Visit Provider Internal Medicine
DX: Z12.31 Encounter for screening mammogram for malignant neoplasm of breast (principal)
CPT/HCPCS: 77063; 77067